=== PATIENT | male | born 1970 | race Caucasian/White ===

== ENCOUNTER 2023-10-07 09:20 | Outpatient (OUT) | payer BC, SELFPAY ==
[2023-10-07 09:48] LABS: Estimated Average Glucose 186 mg/dL; Glycohemoglobin A1C 8.1 % (4.5-6.2)
== END 2023-10-07 09:21 | disposition home or self-care (01) ==
PROVIDERS: PCP Internal Medicine; Visit Provider Internal Medicine
DX: E11.65 Type 2 diabetes mellitus with hyperglycemia (principal)
CPT/HCPCS: 36415; 83036

== ENCOUNTER 2024-10-06 09:29 | Outpatient (OUT) | payer BC, SELFPAY ==
--- OUTSIDE RECORDS SUMMARY | 2024-10-06 09:45 | XMS_ITS | CCD ---
Author Organization [facility] Care Team Providers Care Laundry Attendant Name Role Phone DR NAYAN GEE Consulting Unavailable BALL, DR ZARATE Attending Unavailable BALL, DR ZARATE Admitting Unavailable BALL, DR ZARATE Primary Care Unavailable BALL, DR ZARATE Attending Unavailable BALL, DR ZARATE Admitting Unavailable BALL, DR ZARATE Primary Care Unavailable BALL, DR ZARATE Attending Unavailable BALL, DR ZARATE Admitting Unavailable BALL, DR ZARATE Primary Care Unavailable BALL, DR ZARATE Primary Care Unavailable MISC, DR FARRAR Attending Unavailable MISC, DR FARRAR Admitting Unavailable MISC, DR FARRAR Consulting Unavailable BALL, DR ZARATE Primary Care Unavailable BALL, DR ZARATE Consulting Unavailable BALL, DR ZARATE Attending Unavailable BALL, DR ZARATE Admitting Unavailable NAYAN GEE Primary Care Physician [phone] Nayan Gee Unavailable TIMMIS, MILLIE H Attending Unavailable Nayan Gee DO Primary Care Provider Nayan Gee DO Primary Care Provider Nayan Gee DO Primary Care Provider AL V, SANJEET Referring Unavailabl e BALL, NAYAN E Primary Care Unavailable BALL, NAYAN E Primary Care Unavailable AL V, SANJEET Admitting Unavailabl e AL V, SANJEET Attending Unavailabl e BALL, NAYAN E Primary Care Unavailable BALL, NAYAN E Primary Care Unavailable LA V, SANJEET Referring Unavailabl e BALL, NAYAN E Primary Care Unavailable BALL, NAYAN E Primary Care Unavailable DO Mohan Pinzon Attending Unavailable Timmis, Millie H Admitting Unavailable Timmis, Millie H Attending Unavailable Timmis, Millie H Referring Unavailable ISAI PETERSON Attending Unavailable Zelalem Brink Attending Unavailable Timmis, Millie H Admitting Unavailable Timmis, Millie H Attending Unavailable Timmis, Millie H Referring Unavailable BALL, NAYAN Admitting Unavailable BALL, NAYAN Attending Unavailable BALL, NAYAN Attending Unavailable BALL, NAYAN Admitting Unavailable AL V, DOT Attending Unavailabl e BALL, NAYAN E Primary Care Unavailable AL V, DOT Attending Unavailabl e BALL, NAYAN E Primary Care Unavailable AL V, SANJEET Attending Unavailabl e BALL, NAYAN E Primary Care Unavailable BALL, NAYAN Admitting Unavailable BALL, NAYAN Attending Unavailable Cornel, Umer Attending Unavailable Allergies Allergy Classification Reported Allergen(s) Allergy Type Date of Onset Reaction(s) Facility (6 sources) venlafaxine Drug Allergy Unknown [facility] Other (9 sources) venlafaxine Drug Allergy Unknown [facility] Other (3 sources) patient allergy list reviewed by nurse or physicia Propensity to adverse reactions Comment:Done [facility] Other Medications Current Medications Medication Drug Class(es) Dates Sig (Normalized) Sig (Original) 0.25 MG, 0.5 MG Dose 3 ML semaglutide 0.68 MG/ML Pen Injector [Ozempic] (4 sources) Start: 11-14-2023 Ozempic 2 mg/3 mL (0.25 mg or 0.5 mg dose) subcutaneous solution Refills(s) 0 Start Date: 11/14/23 Status: Ordered acetaminophen 325 mg oral tablet (1 source) Start: 07-26-2023 take 1 tablet by mouth every four hours as needed acetaminophen (Tylenol) tablet 650 mg acetaminophen 325 mg / HYDROcodone bitartrate 5 mg oral tablet (1 source) Opioid Agonist Start: 06-15-2023 End: 06-18-2023 [place] 325 mg-5 mg oral tablet 1 tab(s), Oral, q6hr for pain for 3 day(s), 7 tab(s), Refill(s) 0, [facility] #[id number], 180.3, cm, 06/15/23 0:40:00 EST, Height/Length Dosing, 117.9, kg, 06/15/23 0:40:00 EST, Weight Dosing Start Date: 06/15/23 Stop Date: 06/18/23 Status: Ordered albuterol 0.83 mg/ml inhalation solution (1 source) beta2-Adrenergic Agonist Start: 07-26-2023 albuterol 2.5 mg /3 mL (0.083 %) nebulizer solution 2.5 mg amLODIPine 5 mg oral tablet (5 sources) Dihydropyridine Calcium Channel Pawel Start: 06-01-2024 take 1 tablet by mouth once daily Amlodipine 5 mg tablet Active 0 .ROUTE .COMPLEX June 01, 2024 9:57pm Take 1 tablet by mouth once daily Start: 11-20-2023 End: 06-01-2024 amLODIPine 5 mg Tab Refills( s) 0 Start Date: 12/26/23 Status: Ordered amoxicillin 500 mg oral capsule (1 source) Penicillin-class Antibacterial Start: 06-15-2023 End: 06-20-2023 take 1 capsule by mouth three times daily amoxicillin 500 mg Cap 500 mg = 1 cap(s), Oral, TID, X 5 day(s), # 15 cap(s), Refills(s) 0, Pharmacy: [facility] #[id number], 180.3, cm, 06/15/23 0:40:00 EST, Height/Length Dosing, 117.9, kg, 06/15/23 0:40:00 EST, Weight Dosing Start Date: 06/15/23 Stop Date: 06/20/23 Status: Ordered atorvastatin 20 mg oral tablet (20 sources) HMG-CoA Reductase Inhibitor Start: 12-11-2023 Atorvastatin 20 mg tablet Active 0 .ROUTE .COMPLEX December 11, 2023 8:36am TAKE 1 TABLET ONCE DAILY Start: 08-28-2018 End: 12-11-2023 take 1 tablet by mouth once daily atorvastatin 20 mg Tab 20 mg = 1 tab(s), Oral, Daily, Refills(s) 0, High cholesterol Start Date: 06/17/22 Status: Ordered atorvastatin (Li pitor) 20 mg tablet once every 24 hours. Active benzonatate 200 mg oral capsule (1 source) Non-narcotic Antitussive Start: 06-17-2022 End: 06-27-2022 take 1 capsule by mouth three times daily as needed for cough benzonatate 200 mg oral capsule 200 mg = 1 cap(s), Oral, TID, PRN Cough, X 10 day(s), # 30 cap(s), Refills(s) 0, Pharmacy: [facility], 178, cm, 06/17/22 11:35:00 EST, Height/Length Dosing, 113.3, kg, 06/17/22 11:35:00 EST, Weight Dosing Start Date: 06/17/22 Stop Date: 06/27/22 Status: Ordered buPROPion hydrochloride 75 mg oral tablet (20 sources) Aminoketone Start: 10-04-2023 take 2 tablets by mouth twice daily Bupropion Hcl 75 mg tablet Active 150 MG PO Twice daily October 04, 2023 12:00am Start: 05-23-2023 take 1 tablet by freddy th twice daily buPROPion XL (Wellbutrin XL) 150 mg 24 hr tablet Take 1 tablet (150 mg) by mouth twice a day. 05/23/2023 Active Start: 05-23-2023 take 1 tablet by freddy th every twenty-four hours buPROPion 150 mg/24 hours XL Tab 150 mg = 1 tab(s), Oral, q24hr, Refills(s) 0, Depression Start Date: 05/23/23 Status: Ordered Start: 06-17-2022 buPROPion 150 mg/24 hours XL Tab Refills(s) 0 Start Date: 06/17/22 Status: Ordered calcium chloride 0.0014 meq/ml / potassium chloride 0.004 meq/ml / sodium chloride 0.103 meq/ml / sodium lactate 0.028 meq/ml injectable solution (1 source) Start: 07-26-2023 lactated Ringer's infusion clindamycin 300 mg oral capsule (1 source) Lincosamide Antibacterial Start: 11-14-2023 End: 11-24-2023 take 1 capsule by mouth three times daily clindamycin 300 mg oral cap 300 mg = 1 cap(s), Oral, TID, X 10 day(s), # 30 cap(s), Refills(s) 0, Pharmacy: [facility], 180, cm, 11/14/23 16:57:00 EDT, Height/Length Dosing, 116, kg, 11/14/23 16:57:00 EDT, Weight Dosing Start Date: 11/14/23 Stop Date: 11/24/23 Status: Ordered diclofenac sodium 75 mg delayed release oral tablet (15 sources) Nonsteroidal Anti-inflammatory Drug Start: 08-28-2018 End: 07-26-2023 take 1 tablet by mouth twice daily Diclofenac Sodium 75 mg tablet,delayed release (DR/EC) Active 75 MG PO Twice daily August 28, 2018 1:00am escitalopram 10 mg oral tablet (7 sources) Serotonin Reuptake Inhibitor Start: 02-11-2016 take 10 mg by mouth once daily Lexapro 10 mg, Oral, Daily, Refills(s) 0, Anxiety Start Date: 02/11/16 Status: Ordered Start: 02-11-2016 Lexapro Oral, Daily, Refills(s) 0 Start Date: 02/11/16 Status: Ordered fluticasone propionate 0.05 mg/actuat metered dose nasal spray (8 sources) Corticosteroid Start: 02-18-2023 End: 02-18-2024 fluticasone (Flonase) 50 mcg/actuation nasal spray 2 sprays once daily. 02/18/2023 Active glimepiride 1 mg oral tablet (19 sources) Sulfonylurea Start: 09-17-2024 take 1 tablet by mouth once daily at breakfast Glimepiride 1 mg tablet Active 0 .ROUTE .COMPLEX 90 September 17, 2024 10:47pm TAKE 1 TABLET BY MOUTH ONCE DAILY WITH BREAKFAST OR THE FIRST MAIN MEAL OF THE DAY Start: 02-08-2023 End: 09-17-2024 take 1 tablet by mouth once daily at breakfast Glimepiride 1 mg tablet Discontinued 1 MG PO Daily October 04, 2023 12:00am September 17, 2024 10:47pm with breakfast or the first main meal of the day Handicap placards as directe d (20 sources) Start: 10-07-2018 Handicap placa rds as directed as directed as directed 3 months Sep, Active Start: 10-06-2018 Handicap placa rds as directed as directed as directed as directed good for 3 months Sep, Active Start: 07-08-2018 Handicap placa rds as directed 3 months 3 months Jun, Active 1 ml hydrALAZINE hydrochloride 20 mg/ml injection (1 source) Arteriolar Vasodilator Start: 07-26-2023 hydrALAZINE (Apresoline) injection 5 mg hydroCHLOROthiazide 25 mg oral tablet (20 sources) Thiazide Diuretic Start: 08-30-2024 take 1 tablet by mouth once daily Hydrochlorothiazide 25 mg tablet Active 0 .ROUTE .COMPLEX 90 August 30, 2024 6:37pm Take 1 tablet by mouth once daily Start: 08-28-2018 End: 08-30-2024 take 1 tablet by mouth once daily Hydrochlorothiazide 25 mg tablet Discontinued 25 MG PO Daily August 28, 2018 1:00am August 30, 2024 6:37pm Start: 02-11-2016 take 12.5 mg by mout h once daily hydrochlorothiazide 12.5 mg, Oral, Daily, Refills(s) 0, High blood pressure Start Date: 02/11/16 Status: Ordered Start: 02-11-2016 hydrochlorothi azide Oral, Daily, Refills(s) 0 Start Date: 02/11/16 Status: Ordered hydroCHLOROthiaz chicho (HYDRODiuril) 25 mg tablet once every 24 hours. Active 1 ml HYDROmorphone hydrochloride 1 mg/ml cartridge (2 sources) Opioid Agonist Start: 07-26-2023 HYDROmorphone (Dilaudid) injection 0.5 mg Start: 07-26-2023 HYDROmorphone (Dilaudid) injection 0.2 mg 3 ml insulin glargine 100 unt/ml pen injector (1 source) Insulin Analog Start: 03-13-2024 Insulin Glargi ne (Lantus Solostar U-100 Insulin) 100 unit/mL (3 mL) insulin pen Active 35 UNIT SUBCUT Every evening March 13, 2024 12:00am 3 ml insulin lispro 100 unt/ml pen injector (14 sources) Insulin Analog insulin lispro ( HumaLOG) 100 unit/mL injection Inject under the skin. Active inject 5 [IU] by sub cutaneous injection at dinner HumaLOG KwikPen 100 UNIT/ML 5 units Subcutaneous before evening meal for 30 days Active insulin lispro (HumaLOG) 100 unit/mL injection (1 source) insulin lispro (HumaLOG) 100 unit/mL injection Inject under the skin. 0 Active labetalol hydrochloride 5 mg/ml injectable solution (1 source) beta-Adrenergic Pawel Start: 07-26-19 labetaloL (Normodyne,Trandate) injection 5 mg metFORMIN hydrochloride 1000 mg oral tablet (20 sources) Biguanide Start: 08-28-19 take 1 tablet by mouth twice daily metformin 1000 mg Tab 1,000 mg = 1 tab(s), Oral, BID, Refills(s) 0, Blood glucose Start Date: 06/17/22 Status: Ordered Misc Medication (3 sources) Start: 02-11-20 Misc Medication pill for inflammation Start Date: 02/11/16 Status: Ordered naproxen 500 mg oral tablet (10 sources) Nonsteroidal Anti-inflammatory Drug Start: 10-04-19 End: 11-29-19 naproxen (Naprosyn) 500 mg tablet Take 1 tablet (500 mg) by mouth. 10/03/2020 Active ofloxacin 3 mg/ml ophthalmic solution (12 sources) Quinolone Antimicrobial Start: 12-14-19 take 2 drop(s) into the eye(s) four times daily Ofloxacin 0.3 % 2 drops Ophthalmic to both eyes QID for 7 days November, Active Start: 12-13-2022 take 2 drop(s) into the eye(s) four times daily Ofloxacin 0.3 % 2 drops Ophthalmic to both eyes QID for 7 days November, Active Start: 12-13-2022 take 2 drop(s) into the eye(s) four times daily Ofloxacin 0.3 % 2 drops Ophthalmic to both eyes QID for 7 days November, Active Start: 12-13-2022 take 2 drop(s) into the eye(s) four times daily Ofloxacin 0.3 % 2 drops Ophthalmic to both eyes QID for 7 days November, Active 2 ml ondansetron 2 mg/ml injection (1 source) Serotonin-3 Receptor Antagonist Start: 07-26-2023 ondansetron (Zofran) injection 4 mg oxyCODONE hydrochloride 5 mg oral tablet (2 sources) Opioid Agonist Start: 07-26-2023 take 1 tablet by mouth every four hours as needed oxyCODONE (Roxicodone) immediate release tablet 10 mg Start: 07-26-2023 take 1 tablet by freddy th every four hours as needed oxyCODONE (Roxicodone) immediate release tablet 5 mg oxygen (O2) therapy (1 source) Start: 07-26-2023 oxygen (O2) therapy Ozempic 0.25 mg or 0.5 mg (2 mg/3 mL) pen injector (4 sources) Start: 10-09-2023 Ozempic 0.25 mg or 0.5 mg (2 mg/3 mL) pen injector Inject 0.25 mg under the skin 1 (one) time per week. 10/09/2023 Active Promethazine (1 source) Phenothiazine Start: 06-17-2022 End: 06-24-2022 take 5 mL by mouth every eight hours for cough Promethazine DM oral syrup 5 mL, Oral, q8hr for cough for 7 day(s), 120 mL, Refill(s) 0, [facility], 178, cm, 06/17/22 11:35:00 EST, Height/Length Dosing, 113.3, kg, 06/17/22 11:35:00 EST, Weight Dosing Start Date: 06/17/22 Stop Date: 06/24/22 Status: Ordered promethazine (Phenergan) 6.25 mg in sodium chloride 0.9% 50 mL IV (1 source) Start: 07-26-2023 promethazine (Phenergan) 6.25 mg in sodium chloride 0.9% 50 mL IV Semaglutide 2 mg/dose (8 mg/3 mL) pen injector (1 source) Start: 10-06-2024 inject 2 mg by subcutaneous injection every week Semaglutide 2 mg/dose (8 mg/3 mL) pen injector Active 1 MG SUBCUT every week 1.5 October 06, 2024 9:10am for 4 weeks 24 hr venlafaxine 75 mg extended release oral capsule (20 sources) Serotonin and Norepinephrine Reuptake Inhibitor Start: 05-23-2023 venlafaxine XR (Effexor-XR) 75 mg 24 hr capsule once every 24 hours. 05/23/2023 Active Start: 05-23-2023 take 1 capsule by mo ut once daily venlafaxine 75 mg Cap-ER 75 mg = 1 cap(s), Oral, Daily, Refills(s) 0, Anxiety Start Date: 05/23/23 Status: Ordered Start: 06-17-2022 venlafaxine 75 mg Cap-ER Refills(s) 0 Start Date: 06/17/22 Status: Ordered Start: 08-28-2018 take 1 capsule by mo ut once daily Venlafaxine 150 mg capsule,extended release 24hr Active 150 MG PO Daily August 28, 2018 1:00am Completed/Discontinued Medications Medication Drug Class(es) Dates Sig (Normalized) Sig (Original) acetaminophen 325 mg / oxyCODONE hydrochloride 5 mg oral tablet (12 sources) Opioid Agonist Start: 09-04-2018 take 1-2 tablets by mouth every four to six hours as needed for pain Percocet 5-325 MG 1-2 tablet Orally every 4-6 hrs as needed for severe pain for 7 days DO NOT FILL UNTIL 09/10/2018 Aug, Not-Taking/PRN azithromycin 500 mg oral tablet (12 sources) Macrolide Antimicrobial Azithromycin 500 MG as directed Orally Not-Taking/PRN CPAP Machine (12 sources) CPAP Machine Not-Taking/PRN CPAP Machine Not -Taking 0.5 ml dulaglutide 3 mg/ml auto-injector (14 sources) GLP-1 Receptor Agonist Start: 11-18-2020 End: 10-04-2023 Dulaglutide (Trulicity) 1.5 mg/0.5 mL pen injector Discontinued 1.5 MG SUBCUT As Directed November 18, 2020 12:00am October 04, 2023 12:26pm Start: 08-28-2018 End: 11-18-2020 Dulaglutide 0.75 mg/0.5 mL p en injector Discontinued 1 DOSE SUBCUT every week August 28, 2018 1:00am November 18, 2020 9:39am Trulicity 0.75 M G/0.5ML as directed Subcutaneous Not-Taking/PRN hydrOXYzine pamoate 25 mg oral capsule (19 sources) Antihistamine Start: 09-12-2018 End: 09-19-2018 take 1 capsule by mouth every four hours Hydroxyzine Pamoate (Vistaril) 25 mg capsule Discontinued 25 MG PO Q4H 42 7 September 12, 2018 1:00am September 18, 2018 1:00am September 19, 2018 1:03am Start: 09-04-2018 hydrOXYzine pa moate (Vistaril) 25 mg capsule Take by mouth every 8 hours. 09/04/2018 Active insulin detemir 100 unt/ml injectable solution (20 sources) Insulin Analog Start: 10-04-2023 End: 03-13-2024 inject 35 [IU] by subcutaneous injection once daily at bedtime Insulin Detemir U-100 (Levemir U-100 Insulin) 100 unit/mL solution Discontinued 35 UNIT SUBCUT Daily at bedtime October 04, 2023 12:00am March 13, 2024 12:46pm Start: 06-17-2022 Levemir FlexTo uch 100 units/mL subcutaneous solution 35 unit(s), SubCutaneous, Once a day (at bedtime), Refills(s) 0, Blood glucose Start Date: 06/17/22 Status: Ordered Start: 06-17-2022 Levemir FlexTo uch 100 units/mL subcutaneous solution Refills(s) 0 Start Date: 06/17/22 Status: Ordered insulin detemir (Levemir) 100 unit/mL injection Inject 100 Units under the skin. Active inject 35 [IU] by shore bcutaneous injection once at bedtime Levemir 100 UNIT/ML 35 units Subcutaneous q hs for 30 days Active inject 35 [IU] by shore bcutaneous injection once at bedtime Levemir 100 UNIT/ML 35 units Subcutaneous q hs for 30 days Active inject 10 [IU] by shore bcutaneous injection once at bedtime Levemir 100 UNIT/ML 10 units Subcutaneous q hs for 30 days Active Levemir 100 UNIT /ML as directed Subcutaneous Active Insulin Lispro (Humalog Kwikpen Insulin) 100 unit/mL insulin pen (1 source) Start: 10-04-2023 End: 10-08-2023 inject 5 [IU] by subcutaneous injection once daily Insulin Lispro (Humalog Kwikpen Insulin) 100 unit/mL insulin pen Discontinued 5 UNIT SUBCUT Daily before supper October 04, 2023 12:00am October 08, 2023 3:18pm Semaglutide (2 sources) Start: 11-20-2023 End: 04-02-2024 Semaglutide (Ozempic) 0.25 mg or 0.5 mg (2 mg/3 mL) pen injector Discontinued 0.5 MG SUBCUT every week 3 November 20, 2023 6:15pm April 02, 2024 11:20am for 4 weeks Start: 10-08-2023 End: 11-20-2023 Semaglutide (Ozempic) 0.25 m g or 0.5 mg (2 mg/3 mL) pen injector Discontinued 0.25 MG SUBCUT every week 3 October 08, 2023 12:00am May 1st, 2024 6:16pm for 4 weeks Semaglutide (2 sources) Start: 07-23-2024 End: 10-06-2024 inject 1 mg by subcutaneous injection every week Semaglutide 1 mg/dose (4 mg/3 mL) pen injector Discontinued 1 MG SUBCUT every week 3 July 23, 2024 2:15pm October 06, 2024 9:11am for 4 weeks Start: 04-02-2024 End: 07-23-2024 inject 1 mg by subcutaneous injection every week Semaglutide 1 mg/dose (4 mg/3 mL) pen injector Discontinued 1 MG SUBCUT every week 3 April 02, 2024 11:19am July 23, 2024 2:15pm for 4 weeks TOUJEO SOLOSTAR U-300 (12 sources) TOUJEO SOLOSTAR U-300 As directed Injectable As Directred Not-Taking/PRN TOUJEO SOLOSTAR U-300 As directed Injectable As Directred Not-Taking traMADol hydrochloride 50 mg oral tablet (14 sources) Opioid Agonist Start: 09-23-2018 End: 07-31-2023 take 1 tablet by mouth every four to six hours as needed traMADol HCl 50 MG take 1 tablet Orally 4-6 hours as needed for 7 days Sep, Not-Taking/PRN Problems Active Problems Problem Classification Problem Date Documented Date Episodic/Chronic Anxiety disorders (15 sources) Generalized anxiety disorder; Translations: [Generalized anxiety disorder] Chronic Deficiency and other anemia (3 sources) Anemia; Translations: [Anemia, unspecified] Episodic Diabetes mellitus with complications (20 sources) Type 2 diabetes mellitus with hyperglycemia; Translations: [Type 2 diabetes mellitus] Onset: 12-12-2021 Chronic Diabetes mellitus without complication (20 sources) Diabetes mellitus; Translations: [Type 2 diabetes mellitus without complication] Onset: 07-26-2023 10-03-2020 Chronic Disorders of lipid metabolism (20 sources) Hyperlipidemia; Translations: [Pure hypercholesterolemia] Onset: 02-20-2017 10-03-2020 Chronic Disorders of teeth and jaw (6 sources) Disorder of teeth AND/OR supporting structures; Translations: [Other specified disorders of teeth and supporting structures] Onset: 06-15-2023 Episodic Esophageal disorders (13 sources) Gastro-esophageal reflux disease with esophagitis; Translations: [Gastroesophageal reflux disease with esophagitis without hemorrhage] 10-04-2023 Chronic Essential hypertension (20 sources) Hypertensive disorder; Translations: [Essential hypertension] Onset: 07-26-2023 10-03-2020 Chronic Mood disorders (20 sources) Major depressive disorder, recurrent, unspecified; Translations: [Recurrent major depression in full remission] Onset: 08-21-2021 Chronic Nutritional deficiencies (3 sources) Vitamin D deficiency; Translations: [Vitamin D deficiency, unspecified] Chronic Open wounds of extremities (1 source) Laceration of finger without foreign body; Translations: [Laceration without foreign body of unspecified finger without damage to nail, initial encounter] Onset: 09-22-2024 Episodic Osteoarthritis (20 sources) Arthritis of right knee; Translations: [Unilateral primary osteoarthritis, right knee] Chronic Other aftercare (12 sources) Long-term current use of insulin; Translations: [manager intermediate (current) use of insulin] Episodic Other aftercare (2 sources) [facility] (current) use of insulin Episodic Other and unspecified benign neoplasm (1 source) Benign neoplasm of nose, middle ear and accessory sinuses; Translations: [Benign neoplasm of middle ear, nasal cavity and accessory sinuses] Onset: 05-30-2023 Episodic Other and unspecified benign neoplasm (17 sources) Neoplastic disease; Translations: [Benign neoplasm, unspecified site] Onset: 06-26-2023 06-25-2023 Episodic Other circulatory disease (4 sources) Elevated blood pressure 11-14-2023 Episodic Other nervous system disorders (1 source) Acute postoperative pain; Translations: [Other acute postprocedural pain] 07-26-2023 Episodic Other nutritional; endocrine; and metabolic disorders (2 sources) Obese class II; Translations: [Body mass index (BMI) 35.0-35.9, adult] Onset: 06-17-2022 Chronic Other nutritional; endocrine; and metabolic disorders (4 sources) Obesity; Translations: [Obesity, unspecified] 10-06-2024 Chronic Other nutritional; endocrine; and metabolic disorders (3 sources) Morbid obesity; Translations: [Morbid (severe) obesity due to excess calories] Onset: 08-15-2015 Chronic Other nutritional; endocrine; and metabolic disorders (4 sources) Body mass index 30+ - obesity 11-14-2023 Chronic Other nutritional; endocrine; and metabolic disorders (1 source) Obesity, unspecified; Translations: [Obesity, unspecified] 10-06-2024 Chronic Other screening for suspected conditions (not mental disorders or infectious disease) (7 sources) Encounter for screening for malignant neoplasm of prostate; Translations: [No current problems or disability] Onset: 12-14-2021 06-17-2022 Episodic Comment on above: PSA:0.9 - 03/2024 Problem List clean-u p per request of Phys. EHR Cmte Other upper respiratory disease (12 sources) Hypertrophy of nasal turbinates; Translations: [Hypertrophy of nasal turbinates] Episodic Other upper respiratory disease (1 source) Hypertrophy of nasal turbinates Episodic Other upper respiratory disease (5 sources) Nasal obstruction; Translations: [Other specified disorders of nose and nasal sinuses] 06-25-2023 Episodic Other upper respiratory infections (5 sources) Common cold; Translations: [Acute nasopharyngitis [common cold]] Onset: 06-17-2022 Episodic Residual codes; unclassified (7 sources) Obstructive sleep apnea (adult) (pediatric); Translations: [Obstructive sleep apnea (adult)(pediatric)] Onset: 08-22-2021 Chronic Residual codes; unclassified (20 sources) Obstructive sleep apnea syndrome; Translations: [Obstructive sleep apnea (adult) (pediatric)] Onset: 07-26-2023 05-23-2023 Chronic Past or Other Problems Problem Classification Problem Date Documented Date Episodic/Chronic Esophageal disorders (2 sources) Esophageal disorders Other aftercare (1 source) Other correction (current) drug therapy; Translations: [[facility] CURRENT DRUG [facility]ERAPY] Onset: 08-24-2021 Episodic Other and unspecified benign neoplasm (5 sources) Benign neoplasm, unspecified site; Translations: [Benign neoplasm, unspecified site] Onset: 06-26-2023 Episodic Other nervous system disorders (2 sources) Other acute postprocedural pain; Translations: [Other acute postprocedural pain] Onset: 07-26-2023 Episodic Unclassified (8 sources) Onset: 06-25-2023 Resolved: 09-15-2024 06-25-2023 Results Test Name Value Interpretation Reference Range Facility ED Note-Physicianon 09-26-19 ED Note-Physician ED Note-Physician Basic Information Time Seen: Eyad Randolph PA-C 09/22/2024 16:11 Chief Complaint pt reports ring and pinky finger lac, cut it used it a veggie slicers. L hand. tdap not UTD. History of Present Illness 54 y/o M presenting s/p hand injury. He was slicing vegetables with a mandolin and sliced the tips of his ring and pinky fingers on his left hand. The mandolin was not dirty. He has 2 small abrasions, one on his left pinky and one on his left ring finger. They were actively bleeding but he states since arrival it has stopped. He states his last tetanus was 12 years ago. No other aggravating or relieving factors. No other associated symptoms. No other prior treatments or complaints. Review of Systems No other aggravating or relieving factors no other associated symptoms no other prior treatments or complaints. Family: Reviewed and noncontributory Social: lives at home 10 point ROS is negative unless otherwise noted in HPI. Physical Exam Vitals & Measurements T: 36.3 ???C(Oral) HR: 109(Peripheral) RR: 20 BP: 174/99 SpO2: 97% HT: 180 cm WT: 116 kg BMI: 35.8 General: The patient appears well and in no apparent distress. Patient is resting comfortably. Skin: Warm, dry, no pallor noted. Head: Normocephalic, atraumatic Neck: No JVD Eye: PERRLA, EOMI ENT: Moist mucus membranes Cardiovascular: Rate regular rhythm with normal peripheral perfusion Respiratory: No respiratory distress, no accessory muscle use, no obvious audible wheezing Chest Wall: no deformity Musculoskeletal: normal ROM, no deformity, no swelling. small abrasions on left pinky finger and left ring finger. GI: Soft no obvious distention. No rebound or rigidity. No guarding. Neurological: A&O moves all extremities equal strength and symmetry Psychiatric: Cooperative and appropriate Medical Decision Making Patient seen and evaluated with physician physical therapy assistant instructor student. I had a [id number] interaction with the patient. I personally performed the physical exam and medical decision making. I have verified the documentation by the student is accurately representing the information obtained. Patient presents for evaluation of finger injuries. Just prior to arrival he was using a mandolin when he lacerated the distal aspect of his left fourth and fifth digits. On examination he has soft tissue avulsions. There is no exposed bone. There is no active bleeding. wounds were dressed and managed by nursing. His tetanus is updated. He is discharged home PCP follow-up. Patient was encouraged to return to the ED if symptoms worsen or change. Assessment/Plan Finger laceration (S61.219A: Laceration without foreign body of unspecified finger without damage to nail, initial encounter) Orders: tetanus/diphtheria/pertu ssis, acel (Tdap), 0.5 mL, Injection, Intramuscular-Immunizati on, Once, Stop date 09/22/24 16:33:00 EST, STAT, Start date 09/22/24 16:33:00 EST Wound Care Routine Medications Administered Given tetanus/diphtheria/pertu ssis, acel (Tdap) 5 units-2.5 units-18.5 mcg/0.5 mL intramuscular suspension, 0.5 mL, Intramuscular-Immunizati on diphtheria/pertussis, acel/tetanus adult, Intramuscular-Immunizati on Disposition Plan Patient Discharge Condition Disposition: Discharged home Condition: Improved and stable Counseled: Patient and/or family were counseled to workup, results, treatment plan and follow-up recommendations Discharge Prescription List Prescriptions No active prescription medications Follow-up With When Contact Information NAYAN GEE In 3 days 09/25/2024 EST [address] [id number] [facility] (1) Additional Instructions: Patient Education Wound Care, Adult Attestation I performed a substantive part of the MDM during the patient???s E/M visit. I personally made or approved the documented management plan and acknowledge its risk of complications. (Independent Interpretation) My (EKG/X-Ray/US/CT) interpretation as above. (Discussion) Management/test interpretation discussed with APC. This report was transcribed using voice recognition software. Every effort was made to ensure accuracy, however, inadvertently computerized refractory technician mistakes may be present. Appropriate healthcare PPE was used in evaluating this patient. Problem List/Past Medical History Ongoing BMI 35.0-35.9,adult Dental abscess Diabetes Elevated blood pressure reading with diagnosis of hypertension Hypertension Historical Diabetes mellitus High blood pressure Hyperlipidemia Procedure/Surgical History Septoplasty for cleft lip nasal deformity (07/22/2022), Knee replacement (10/07/2018), Appendectomy, Hernia, Pilonidal cyst, Tumor. Medications Inpatient No active inpatient medications Home amLODIPine 5 mg Tab atorvastatin 20 mg Tab, 20 mg= 1 tab(s), Oral, Daily buPROPion 150 mg/24 hours XL Tab, 150 mg= 1 tab(s), Oral, q24hr hydrochlorothiazide, 12.5 mg, Oral, Daily Levemir Fl (more content not included)... Normal [facility] Comment on above: Result Comment: Elec tronically Signed By: Eyad Randolph PA-C\.br\Date and Time Signed: 09/22/24 17:15 EST\.br\Electronically Co-Signed By: Umer Unger DO\.br\Date and Time Co-Signed: 09/25/24 07:19 EST ED Clinical Summaryon 2024 ED Clinical Summary ED Clinical Summary [place] [id number] ED Clinical Summary Person Information Name: PARVEEN LEE Chrissie/[facility] Age: 54 Years : 1970 Sex: Male Language: Welsh PCP: NAYAN GEE DO Marital Status: Phone: [phone] Visit Id: Visit Reason: Finger laceration; LEFT FINGER LAC Speciality: Acuity: 4 Enc Type: Emergency Med Service: Emergency Arrival: 09/22/2024 16:04:19 Discharge: 09/22/2024 17:20:49 LOS: 000 01:16 Checkin: 09/22/2024 16:04:19 Checkout: 09/22/2024 17:20:49 Dispo Type: Home (Routine DC) EVENTS: Event Name Event Status Request Date/Time Start Date/Time Complete Date/Time Arrive Complete 09/22/2024 16:04:19 09/22/2024 16:04:19 09/22/2024 16:04:19 Document Home Meds Request 09/22/2024 16:04:19 Triage Complete 09/22/2024 16:04:19 09/22/2024 16:10:51 09/22/2024 16:10:51 Bed Assign Complete 09/22/2024 16:08:30 09/22/2024 16:08:30 09/22/2024 16:08:30 Dr Exam Complete 09/22/2024 16:08:30 09/22/2024 16:11:47 09/22/2024 16:11:47 RN Exam Complete 09/22/2024 16:08:30 09/22/2024 16:16:26 09/22/2024 16:16:26 Patient Care Request 09/22/2024 16:10:04 Registration Complete 09/22/2024 16:11:47 09/22/2024 16:31:30 09/22/2024 16:31:30 Dr Exam Complete 09/22/2024 16:18:14 09/22/2024 16:18:14 09/22/2024 16:18:14 Dr Exam Complete 09/22/2024 16:29:03 09/22/2024 16:29:03 09/22/2024 16:29:03 Reg Complete Request 09/22/2024 16:31:30 Reg Bed Request Complete 09/22/2024 16:31:30 09/22/2024 16:31:30 09/22/2024 16:31:30 Meds Admin Complete 09/22/2024 16:33:58 09/22/2024 16:44:47 Patient Care Request 09/22/2024 16:33:58 Discharge Complete 09/22/2024 16:59:31 09/22/2024 17:20:52 09/22/2024 17:20:52 Transfer Complete 09/22/2024 17:20:52 09/22/2024 17:20:52 09/22/2024 17:20:52 ADDRESS: [address] [place] [address] [address] [facility] [id number] PHYS DOC NOTES: MEDICAL INFORMATION: Prescriptions Given: Medications to Continue with No Changes Other Medications amlodipine (amLODIPine 5 mg Tab) atorvastatin (atorvastatin 20 mg Tab) 1 Tablets By Mouth every day. buPROPion (buPROPion 150 mg/24 hours XL Tab) 1 Tablets By Mouth every 24 hours. hydrochlorothiazide 12.5 Milligram By Mouth every day. insulin detemir (Levemir FlexTouch 100 units/mL subcutaneous solution) 35 Units Subcutaneous once a day (at bedtime). metformin (metformin 1000 mg Tab) 1 Tablets By Mouth 2 times a day. semaglutide (Ozempic 2 mg/3 mL (0.25 mg or 0.5 mg dose) subcutaneous solution) venlafaxine (venlafaxine 75 mg Cap-ER) 1 Capsules By Mouth every day. PATIENT EDUCATION INFORMATION: Instructions: Wound Care, Adult Follow up: With: Address: When: NAYAN GEE [address] [place] [address] Business (1) In 3 days 09/25/2024 DIAGNOSIS: Finger laceration Normal [facility] ED Patient Summaryon 025 ED Patient Summary ED Patient Summary [address] [address] Patient Discharge Instructions Person Information Name: PARVEEN LEE Age: 54 Years Arrival Date: 09/22/2024 16:04:19 Discharge Diagnosis: Finger laceration Primary Care Physician: NAYAN GEE DO Provider Information Primary Provider: Umer Unger DO Advanced Multiple Knife Edge Trimmer Operator:Eyad Randolph PA-C The exam and treatment you received in the Emergency Department were for an urgent problem and are not intended as complete care. It is important that you follow up with a doctor, nurse practitioner, or physician???s physical therapy assistant instructor for ongoing care. If your symptoms become worse or you do not improve as expected and you are unable to reach your usual health care provider, you should return to the Emergency Department. We are available 24 hours a day. PARVEEN LEE has been given the following list of patient education materials, prescriptions and follow-up instructions: Follow-up Instructions: With: Address: When: NAYAN GEE [address] [place] [address] [facility] (1) In 3 days 09/25/2024 In the event that this physician does not participate in your insurance network, please consult with your insurance company to find a nearby participating provider. Patient Education Materials: Wound Care, Adult A MESSAGE TO ALL PATIENTS REGARDING OPIOIDS PRESCRIPTION OPIOIDS: WHAT YOU NEED TO KNOW Prescription opioids can be used to help relieve nyjhsfgb-ut-bofatu pain and are often prescribed following a surgery or injury, or for certain health conditions. These medications can be an important part of the treatment but also come with serious risks. It is important to work with your healthcare provider to make sure you are getting the safest, most effective care. WHAT ARE THE RISKS AND SIDE EFFECTS OF OPIOID USE? Prescription opioids carry serious risks of addiction and overdose, especially with prolonged use. An opioid overdose, often marked by slowed breathing, can cause sudden . The use of prescription opioids can have a number of side effects as well, even when taken as directed: ??? Tolerance???meaning you might need to take more of the medication for the same pain relief ??? Physical dependence???meaning you have symptoms of withdrawal when a medication is stopped ??? Increased sensitivity to pain ??? Constipation ??? Nausea, vomiting, and dry mouth ??? Sleepiness and dizziness ??? Confusion ??? Depression ??? Low levels of testosterone that can result in lower sex drive, energy, and strength ??? Itching and sweating RISKS ARE GREATER WITH: ??? History of drug misuse, substance use disorder, or overdose ??? Mental health conditions (such as depression or anxiety) ??? Sleep apnea ??? Older age (65 years and older) ??? Avoid alcohol while taking prescription opioids. Also, unless specifically advised by your health care provider, medications to avoid include: ??? Benzodiazepines (such as Xanax or Valium) ??? Muscle relaxants (such as Soma or Flexeril) ??? Hypnotics (such as Ambien or Lunesta) ??? Other prescription opioids KNOW YOUR OPTIONS Talk to your health care provider about ways to manage your pain that don???t involve prescription opioids. Some of these options may actually work better and have fewer risks and side effects. Options may include: ??? Pain relievers such as acetaminophen, ibuprofen, and naproxen ??? Some medication that are also used for depression or seizures ??? Physical therapy and exercise ??? Cognitive behavioral therapy, a psychological, goal-directed approach, in which patients learn how to modify physical, behavioral, and emotional triggers of pain and stress. IF YOU ARE PRESCRIBED OPIOIDS FOR PAIN: ??? Never take opioids in greater amounts or more often than prescribed. ??? Follow up with your primary health care provider. o Work together to create a plan on how to manage your pain. o Talk about ways to help manage your pain that don???t involve prescription opioids. o Talk about any and all concerns and side effects. ??? Help prevent misuse and abuse o Never sell or share prescription opioids. o Never use another person???s prescription opioids. ??? Store prescription opioids in a secure place and out of reach of others (this may include visitors, children, friends, and family). ??? Safely dispose of unused prescription opioids: Find your community drug take-back program or your pharmacy mail-back program, or flush them down the toilet, following guidance from the Food and Drug Administration (www.fda.gov/Drugs/Resou rcesForYou). ??? Visit www.cdc.gov/drugoverdose to learn about the risks of opioids abuse and overdose. ??? If you believe you may be struggling with addiction, tell your health childbirth and infant care teacher and as (more content not included)... Normal [facility] CBC w/ Auto Diffon 4 Basophils/100 WBC (Bld) 0.7 % Normal 0.0-2.0 [facility] Comment on above: Performed By: #### 2 [id number] #### [facility] [address] [place] [address] Basophils/Leukocytes Auto (Bld) [Pure # fraction] 0.0 E9/L Normal 0.0-0.2 [facility] Comment on above: Performed By: #### 2 [id number] #### [facility] [address] [place] [address] Eosinophils (Bld) [#/Vol] 0.2 E9/L Normal 0.0-0.5 [facility] Comment on above: Performed By: #### 2 [id number] #### [facility] [address] [place] [address] Eosinophils/100 WBC (Bld) 2.7 % Normal 0.0-8.0 [facility] Comment on above: Performed By: #### 2 [id number] #### [facility] [address] [place] [address] Erythrocyte distribution width (RBC) [Ratio] 14.3 % High 10.9-14.2 [facility] Comment on above: Performed By: #### 2 [id number] #### [facility] [address] [place] [address] Hematocrit (Bld) [Volume fraction] 37.6 % Low 37.7-49.0 [facility] Comment on above: Performed By: #### 2 [id number] #### [facility] [address] [place] [address] Hemoglobin (Bld) [Mass/Vol] 13.0 g/dL Low 13.5-17.5 [facility] Comment on above: Performed By: #### 2 [id number] #### [facility] [address] [place] [address] Lymphocytes (Bld) [#/Vol] 1.5 E9/L Normal 1.0-4.0 [facility] Comment on above: Performed By: #### 2 [id number] #### [facility] [address] [place] [address] Lymphocytes/100 WBC (Bld) 20.9 % Normal 14.0-50.0 [facility] Comment on above: Performed By: #### 2 [id number] #### [facility] [address] [place] [address] MCH (RBC) [Entitic mass] 29.5 pg Normal 27.0-34.0 [facility] Comment on above: Performed By: #### 2 [id number] #### [facility] [address] [place] [address] MCHC (RBC) [Mass/Vol] 34.7 g/dL Normal 31.4-36.0 [facility] Comment on above: Performed By: #### 2 [id number] #### [facility] [address] [place] [address] MCV (RBC) [Entitic vol] 85.1 fL Normal 80.0-100.0 [facility] Comment on above: Performed By: #### 2 [id number] #### [facility] [address] [place] [address] Monocytes (Bld) [#/Vol] 0.4 E9/L Normal 0.2-1.0 [facility] Comment on above: Performed By: #### 2 [id number] #### [facility] [address] [place] [address] Neutrophils (Bld) [#/Vol] 4.9 E9/L Normal 2.0-7.5 [facility] Comment on above: Performed By: #### 2 [id number] #### [facility] [address] [place] [address] Neutrophils/100 WBC (Bld) 69.5 % Normal 36.0-75.0 [facility] Comment on above: Performed By: #### 2 [id number] #### [facility] [address] [place] [address] Platelet mean volume (Bld) [Entitic vol] 9.0 fL Normal 6.4-10.8 [facility] Comment on above: Performed By: #### 2 [id number] #### [facility] [address] [place] [address] Platelets (Bld) [#/Vol] 190.0 E9/L Normal 150.0-500.0 [facility] Comment on above: Performed By: #### 2 [id number] #### [facility] [address] [place] [address] RBC (Bld) [#/Vol] 4.4 E12/L Normal 4.3-5.9 [facility] Comment on above: Performed By: #### 2 [id number] #### [facility] [address] [place] [address] WBC corrected for nucl RBC Auto (Bld) [#/Vol] 7.0 E9/L Normal 4.0-11.0 [facility] Comment on above: Performed By: #### 2 [id number] #### [facility] [address] [place] [address] CHEMISTRYOrdered By: SYSTEM SYSTEM on 04-07-2024 Albumin DL <= 20 mg/L (U) [Mass/Vol] 3.2 mg/dL High 0.0 - 1.9 mg/dL [facility] Albumin/Creatinine DL <= 20 mg/L (U) [Mass ratio] 19.9 mg/gm Cr Normal 0.0 - 30.0 mg/gm Cr [facility] Comment on above: Interpretive Data: 3 0-300 mg/g Cr indicates an increased risk for diabetic nephropathy. >300 mg/g Cr is consistent with clinical nephropathy. U Creatinine 160.6 mg/dL Invalid Interpretation Code [facility] Albumin [Mass/Vol] 4.3 g/dL Normal 3.3 - 5.0 gm/dL [facility] Albumin/Globulin [Mass ratio] 1.3 {ratio} Normal 1.1 - 2.2 [facility] ALP [Catalytic activity/Vol] 53 [iU]/d Normal 21 - 98 Int._Unit/L [facility] ALT No additional P-5'-P [Catalytic activity/Vol] 42 [iU]/d Normal 6 - 46 Int._Unit/L [facility] Anion gap [Moles/Vol] 11 mmol/L Normal 6 - 16 mEq/L [facility] AST [Catalytic activity/Vol] 28 [iU]/d Normal 5 - 43 Int._Unit/L [facility] Bilirubin [Mass/Vol] 0.5 mg/dL Normal 0.0 - 1 .1 mg/dL [facility] Calcium [Mass/Vol] 9.4 mg/dL Normal 8.9 - 11. 1 mg/dL [facility] Chloride [Moles/Vol] 103 mmol/L Normal 101 - 1 11 mmol/L [facility] Cholesterol [Mass/Vol] 134 mg/dL Normal 120 - 200 mg/dL [facility] Cholesterol in HDL [Mass/Vol] 39 mg/dL Invalid Interpretation Code [facility] Comment on above: Result Comment: '>= 60 LOW RISK' '<= 40 HIGH RISK' Cholesterol in LDL [Mass/Vol] 81 mg/dL Normal <=129mg/dL [facility] Cholesterol in VLDL [Mass/Vol] 29 mg/dL Normal 7 - 40 mg/dL [facility] CO2 [Moles/Vol] 29 mmol/L Normal 21 - 31 mmol/L [facility] Creatinine [Mass/Vol] 0.7 mg/dL Normal 0.5 - 1.3 mg/dL [facility] eGFR 110 mL/min/1.73 m2 Normal >=59mL/mi n/ 1.73 m2 [facility] Globulin (S) [Mass/Vol] 3.4 g/dL Normal 1.4 - 4.0 gm/dL [facility] Glucose [Mass/Vol] 155 mg/dL Normal 55 - 199 mg/dL [facility] Potassium [Moles/Vol] 3.8 mmol/L Normal 3.5 - 5.3 mmol/L [facility] Prostate specific Ag [Mass/Vol] 0.9 ng/mL Normal 0.1 - 3.5 ng/mL [facility] Comment on above: Interpretive Data: T he concentration of PSA determined by different manufacturers can vary due to differences in assay methods and reagent specificity. Values obtained from different assay methods cannot be used interchangeably. The methodology used for this result was chemiluminescence using [employer]'s Access Hybritech PSA reagent. Protein [Mass/Vol] 7.7 g/dL Normal 6.0 - 7.8 gm/dL [facility] Sodium [Moles/Vol] 139 mmol/L Normal 135 - 145 mmol/L [facility] Triglyceride [Mass/Vol] 144 mg/dL Normal <=149mg/dL [facility] Urea nitrogen [Mass/Vol] 12 mg/dL Normal 5 - 21 mg/dL [facility] Urea nitrogen/Creatinine [Mass ratio] 17 mg/mg Normal 10 - 20 [facility] CHEMISTRYOrdered By: Jose Elias Ballesteros on 04-07-2024 HbA1c (Bld) [Mass fraction] 8.4 % High <=5.9% [facility] ChemAutoSS CMPon 04-07-2024 Albumin [Mass/Vol] 4.3 g/dL Normal 3.3-5.0 [facility] Comment on above: Performed By: #### 2 [id number] #### [facility] [address] [place] [address] Albumin/Globulin (S) [Mass conc ratio] 1.3 Normal 1.1-2.2 [facility] Comment on above: Performed By: #### 2 [id number] #### [facility] [address] [place] [address] ALP [Catalytic activity/Vol] 53 Int._Unit/L Normal 21-98 [facility] Comment on above: Performed By: #### 2 [id number] #### [facility] [address] [place] [address] ALT No additional P-5'-P [Catalytic activity/Vol] 42 Int._Unit/L Normal 6-46 [facility] Comment on above: Performed By: #### 2 [id number] #### [facility] [address] [place] [address] Anion gap [Moles/Vol] 11 mmol/L Normal 6-16 [facility] Comment on above: Performed By: #### 2 [id number] #### [facility] [address] [place] [address] AST [Catalytic activity/Vol] 28 Int._Unit/L Normal 5-43 [facility] Comment on above: Performed By: #### 2 [id number] #### [facility] [address] [place] [address] Bilirubin [Mass/Vol] 0.5 mg/dL Normal 0.0-1.1 [facility] Comment on above: Performed By: #### 2 [id number] #### [facility] [address] [place] [address] Calcium [Mass/Vol] 9.4 mg/dL Normal 8.9-11.1 [facility] Comment on above: Performed By: #### 2 [id number] #### [facility] [address] [place] [address] Chloride [Moles/Vol] 103 mmol/L Normal 101-111 [facility] Comment on above: Performed By: #### 2 [id number] #### [facility] [address] [place] [address] CO2 [Moles/Vol] 29 mmol/L Normal 21-31 [facility] Comment on above: Performed By: #### 2 [id number] #### [facility] [address] [place] [address] Creatinine [Mass/Vol] 0.7 mg/dL Normal 0.5-1.3 [facility] Comment on above: Performed By: #### 2 [id number] #### [facility] [address] [place] [address] Globulin (S) [Mass/Vol] 3.4 g/dL Normal 1.4-4.0 [facility] Comment on above: Performed By: #### 2 [id number] #### [facility] [address] [place] [address] Glucose [Mass/Vol] 155 mg/dL Normal 55-199 [facility] Comment on above: Performed By: #### 2 [id number] #### [facility] [address] [place] [address] Potassium [Moles/Vol] 3.8 mmol/L Normal 3.5-5.3 [facility] Comment on above: Performed By: #### 2 [id number] #### [facility] [address] [place] [address] Protein [Mass/Vol] 7.7 g/dL Normal 6.0-7.8 [facility] Comment on above: Performed By: #### 2 [id number] #### [facility] [address] [place] [address] Sodium [Moles/Vol] 139 mmol/L Normal 135-145 [facility] Comment on above: Performed By: #### 2 [id number] #### [facility] [address] [place] [address] Urea nitrogen [Mass/Vol] 12 mg/dL Normal 5-21 [facility] Comment on above: Performed By: #### 2 [id number] #### [facility] [address] [place] [address] Urea nitrogen/Creatinine [Mass ratio] 17 No Units Normal 10-20 [facility] Comment on above: Performed By: #### 2 [id number] #### [facility] [address] [place] [address] HEMATOLOGYOrdered By: SYSTEM SYSTEM on 04-07-2024 Basophils/100 WBC (Bld) 0.7 % Normal 0.0 - 2.0 % [facility] Basophils/Leukocytes Auto (Bld) [Pure # fraction] 0.0 E9/L Normal 0.0 - 0.2 E9/L [facility] Eosinophils (Bld) [#/Vol] 0.2 E9/L Normal 0.0 - 0.5 E9/L [facility] Eosinophils/100 WBC (Bld) 2.7 % Normal 0.0 - 8.0 % [facility] Erythrocyte distribution width (RBC) [Ratio] 14.3 % High 10.9 - 14.2 % Remisol Heme Hematocrit (Bld) [Volume fraction] 37.6 % Low 37.7 - 49.0 % Remisol Heme Hemoglobin (Bld) [Mass/Vol] 13.0 g/dL Low 13.5 - 17.5 gm/dL Remisol Heme Lymphocytes (Bld) [#/Vol] 1.5 E9/L Normal 1.0 - 4.0 E9/L Remisol Heme Lymphocytes/100 WBC (Bld) 20.9 % Normal 14.0 - 50.0 % Remisol Heme MCH (RBC) [Entitic mass] 29.5 pg Normal 27.0 - 34.0 pg Remisol Heme MCHC (RBC) [Mass/Vol] 34.7 g/dL Normal 31.4 - 36.0 gm/dL Remisol Heme MCV (RBC) [Entitic vol] 85.1 fL Normal 80.0 - 100.0 fL Remisol Heme Monocytes (Bld) [#/Vol] 0.4 E9/L Normal 0.2 - 1.0 E9/L Remisol Heme Monocytes/100 WBC (Bld) 6.2 % Normal 4.0 - 14.0 % Remisol Heme Neutrophils (Bld) [#/Vol] 4.9 E9/L Normal 2.0 - 7.5 E9/L Remisol Heme Neutrophils/100 WBC (Bld) 69.5 % Normal 36.0 - 75.0 % Rem[facility] Heme Platelet mean volume (Bld) [Entitic vol] 9.0 fL Normal 6.4 - 10.8 fL Remisol Heme Platelets (Bld) [#/Vol] 190.0 E9/L Normal 150.0 - 500.0 E9/L Remisol Heme RBC (Bld) [#/Vol] 4.4 E12/L Normal 4.3 - 5.9 E12/L Remisol Heme WBC corrected for nucl RBC Auto (Bld) [#/Vol] 7.0 E9/L Normal 4.0 - 11.0 E9/L Remisol Heme [id number] 04-07-2024 HbA1c (Bld) [Mass fraction] 8.4 % High <=5.9 [facility] Comment on above: Performed By: #### [id number] #### [facility] [address] [place] [address] Lipid Panelon 04-07-2024 Cholesterol [Mass/Vol] 134 mg/dL Normal 120-200 [facility] Comment on above: Performed By: #### 2 [id number] #### [facility] [address] [place] [address] Cholesterol in HDL [Mass/Vol] 39 mg/dL Invalid Interpretation Code [facility] Comment on above: Result Comment: '>= 60 LOW RISK' '<= 40 HIGH RISK' Performed By: #### 2 [id number] #### [facility] [address] [place] [address] Cholesterol in LDL [Mass/Vol] 81 mg/dL Normal <=129 [facility] Comment on above: Performed By: #### 2 [id number] #### [facility] [address] [place] [address] Cholesterol in VLDL [Mass/Vol] 29 mg/dL Normal 7-40 [facility] Comment on above: Performed By: #### 2 [id number] #### [facility] [address] [place] [address] Triglyceride [Mass/Vol] 144 mg/dL Normal <=149 [facility] Comment on above: Performed By: #### 2 [id number] #### [facility] [address] [place] [address] PSA Screen, Totalon 04-07-20 24 Prostate specific Ag [Mass/Vol] 0.9 ng/mL Normal 0.1-3.5 [facility] Comment on above: Result Comment: The concentration of PSA determined by different manufacturers can vary due to differences in assay methods and reagent specificity. Values obtained from different assay methods cannot be used interchangeably. The methodology used for this result was chemiluminescence using [employer]'s Access Hybritech PSA reagent. Performed By: #### 1 [id number] #### [facility] [address] [place] [address] U MA/Cr Ratioon 04-07-2024 Albumin DL <= 20 mg/L (U) [Mass/Vol] 3.2 mg/dL High 0.0-1.9 [facility] Comment on above: Performed By: #### 1 [id number] #### [facility] [address] [place] [address] Albumin/Creatinine DL <= 20 mg/L (U) [Mass ratio] 19.9 mg/gm Cr Normal .0-30.0 [facility] Comment on above: Result Comment: 30-3 00 mg/g Cr indicates an increased risk for diabetic nephropathy. >300 mg/g Cr is consistent with clinical nephropathy. Performed By: #### 1 [id number] #### [facility] [address] [place] [address] U Creatinine 160.6 mg/dL Invalid Interpretation Code [facility] Comment on above: Performed By: #### 1 [id number] #### [facility] [address] [place] [address] eGFRon 04-07-2024 eGFR 110 mL/min/1.73 m2 Normal >=59 [facility] Comment on above: Order Comment: Order added by Discern Expert. Performed By: #### 1 [id number] #### [facility] [address] [place] [address] CT SINUS WO IV CONTRAST VOLU METRIC SURGICAL PLANNINGon 02-06-2024 CT SINUS WO IV CONTRAST VOLUMETRIC SURGICAL PLANNING Interpreted By: Kirill Matthews, STUDY: CT paranasal sinuses INDICATION: Signs/Symptoms:inverted papilloma s/p surgery COMPARISON: July 10, 2023 ACCESSION NUMBER(S): [id number] ORDERING CLINICIAN: DOT MELENDEZ TECHNIQUE: CT of the paranasal sinuses was performed with multiplanar reconstruction and 3D reconstruction FINDINGS: *Nasal fossa deviation of the nasal septum to the left with a 5 mm bony spur extending into the left middle meatus resulting in airway narrowing at that location. Previous right middle turbinectomy and right medial antrostomy. *Frontal sinuses: Normal *Ethmoid sinuses: Partial right anterior ethmoidectomy *Maxillary sinuses: Minimal non nodular soft tissue thickening in the remaining portion of the right maxillary sinus without evidence of residual or recurrent tumor. *Sphenoid sinuses: Normal *Mastoid sinuses: Normal *Maxilla and mandible: Normal ORBITS Normal IMPRESSION: Postoperative changes as described No evidence of residual intranasal mass Unchanged bone spur to the left with airway narrowing. MACRO: none Signed by: Kirill Matthews 02/06/2024 9:30 AM Dictation workstation: [id number] [facility] CT Sinuses WO contraston Postoperative change s as described No evidence of residual intranasal mass Unchanged bone spur to the left with airway narrowing. MACRO: none Signed by: Kirill Matthews 02/06/2024 9:30 AM Dictation workstation: [id number] Interpreted By: Kirill Matthews, STUDY: CT paranasal sinuses INDICATION: Signs/Symptoms:inverted papilloma s/p surgery COMPARISON: July 10, 2023 ACCESSION NUMBER(S): [id number] ORDERING CLINICIAN: DOT MELENDEZ TECHNIQUE: CT of the paranasal sinuses was performed with multiplanar reconstruction and 3D reconstruction FINDINGS: *Nasal fossa deviation of the nasal septum to the left with a 5 mm bony spur extending into the left middle meatus resulting in airway narrowing at that location. Previous right middle turbinectomy and right medial antrostomy. *Frontal sinuses: Normal *Ethmoid sinuses: Partial right anterior ethmoidectomy *Maxillary sinuses: Minimal non nodular soft tissue thickening in the remaining portion of the right maxillary sinus without evidence of residual or recurrent tumor. *Sphenoid sinuses: Normal *Mastoid sinuses: Normal *Maxilla and mandible: Normal ORBITS Normal [facility] MMODAL Kirill Matthews MD - 02/06/2024 Interpreted By: Kirill Matthews, STUDY: CT paranasal sinuses INDICATION: Signs/Symptoms:inverted papilloma s/p surgery COMPARISON: July 10, 2023 ACCESSION NUMBER(S): [id number] ORDERING CLINICIAN: DOT MELENDEZ TECHNIQUE: CT of the paranasal sinuses was performed with multiplanar reconstruction and 3D reconstruction FINDINGS: *Nasal fossa deviation of the nasal septum to the left with a 5 mm bony spur extending into the left middle meatus resulting in airway narrowing at that location. Previous right middle turbinectomy and right medial antrostomy. *Frontal sinuses: Normal *Ethmoid sinuses: Partial right anterior ethmoidectomy *Maxillary sinuses: Minimal non nodular soft tissue thickening in the remaining portion of the right maxillary sinus without evidence of residual or recurrent tumor. *Sphenoid sinuses: Normal *Mastoid sinuses: Normal *Maxilla and mandible: Normal ORBITS Normal IMPRESSION: Postoperative changes as described No evidence of residual intranasal mass Unchanged bone spur to the left with airway narrowing. MACRO: none Signed by: Kirill Matthews 02/06/2024 9:30 AM Dictation workstation: [id number] [facility] Work Phone: Radiology Study observation (narrative) [facility] Work Phone: CT Sinuses WO contrastOrdere d By: Kirill Matthews on 02-06-2024 [facility] Work Phone: Ambulatory Visit Summaryon 0 12-26-2023 Ambulatory Visit Summary PARVEEN LEE :1970 Visit Date:12/26/2023 Ambulatory Visit Instructions Your Diagnosis Viral URI with cough Your Care Team Attending Physician - Zelalem Morales Primary Care Physician - NAYAN GEE DO This Is Your Medications List Contact prescribing physician if questions or concerns amlodipine (amLODIPine 5 mg Tab) atorvastatin (atorvastatin 20 mg Tab) buPROPion (buPROPion 150 mg/24 hours XL Tab) hydrochlorothiazide insulin detemir (Levemir FlexTouch 100 units/mL subcutaneous solution) metformin (metformin 1000 mg Tab) semaglutide (Ozempic 2 mg/3 mL (0.25 mg or 0.5 mg dose) subcutaneous solution) venlafaxine (venlafaxine 75 mg Cap-ER) Procedures Performed Septoplasty for cleft lip nasal deformity (07/22/2022), Knee replacement (10/07/2018), Appendectomy, Hernia, Pilonidal cyst, Tumor. Discharge Vitals Temperature (Temporal Artery) 36.2 ?C Heart Rate (Peripheral) 79 Blood Pressure 136/84 Height 180 cm Height 71 in Weight 116 kg Weight 255.2 lb BMI 35.8 Medications What How Much When Instructions Unchanged amlodipine (amLODIPine 5 mg Tab) Contact prescribing physician if questions or concerns Unchanged atorvastatin (atorvastatin 20 mg Tab) 1 Tablets By Mouth Every day Contact prescribing physician if questions or concerns Unchanged buPROPion (buPROPion 150 mg/ 24 hours XL Tab) 1 Tablets By Mouth Every 24 hours Contact prescribing physician if questions or concerns Unchanged hydrochlorothiazide 12.5 Milligram By Mouth Every day Contact prescribing physician if questions or concerns Unchanged insulin detemir (Levemir FlexTouch 100 units/ mL subcutaneous solution) 35 Units Subcutaneous Once a day (at bedtime) Contact prescribing physician if questions or concerns Unchanged metformin (metformin 1000 mg Tab) 1 Tablets By Mouth 2 times a day Contact prescribing physician if questions or concerns Unchanged semaglutide (Ozempic 2 mg/ 3 mL (0.25 mg or 0.5 mg dose) subcutaneous solution) Contact prescribing physician if questions or concerns Unchanged venlafaxine (venlafaxine 75 mg Cap-ER) 1 Capsules By Mouth Every day Contact prescribing physician if questions or concerns Allergies No Known Allergies Problems Ongoing - Any problem that you are currently receiving treatment for. BMI 35.0-35.9,adult Dental abscess Diabetes Elevated blood pressure reading with diagnosis of hypertension Hypertension Historical - Any problem that you are no longer receiving treatment for. Diabetes mellitus High blood pressure Hyperlipidemia Patient Survey You may receive a survey via text or e-mail asking about your office visit. Please share your experience with us by completing your survey. We appreciate your feedback and thank you for choosing us for your care. Education Materials Upper Respiratory Infection, Adult An upper respiratory infection (URI) affects the nose, throat, and upper airways that lead to the lungs. The most common type of URI is often called the common cold. URIs usually get better on their own, without medical treatment. What are the causes? A URI is caused by a germ (virus). You may catch these germs by: ? Breathing in droplets from an infected person's cough or sneeze. ? Touching something that has the germ on it (is contaminated) and then touching your mouth, nose, or eyes. What increases the risk? You are more likely to get a URI if: ? You are very young or very old. ? You have close contact with others, such as at work, school, or a health care facility. ? You smoke. ? You have long-term (chronic) heart or lung disease. ? You have a weakened disease-fighting system (immune system). ? You have nasal allergies or asthma. ? You have a lot of stress. ? You have poor nutrition. What are the signs or symptoms? ? Runny or stuffy (congested) nose. ? Cough. ? Sneezing. ? Sore throat. ? Headache. ? Feeling tired (fatigue). ? Fever. ? Not wanting to eat as much as usual. ? Pain in your forehead, behind your eyes, and over your cheekbones (sinus pain). ? Muscle aches. ? Redness or irritation of the eyes. ? Pressure in the ears or face. How is this treated? URIs usually get better on their own within 7?10 days. Medicines cannot cure URIs, but your doctor may recommend certain medicines to help relieve symptoms, such as: ? Naem-peo-rlgeday cold medicines. ? Medicines to reduce coughing (cough suppressants). Coughing is a type of defense against infection that helps to clear the nose, throat, windpipe, and lungs (respiratory system). Take these medicines only as told by your doctor. ? Medicines to lower your fever. Follow these instructions at home: Activity ? Rest as needed. ? If you have a fever, stay home from work or school until your fever is gone, or until your doctor says you may return to work or lb (more content not included)... Normal [facility] Family Medicine Office/Clini c Noteon 12-26-2023 Family Medicine Office/Clinic Note Chief Complaint cough HPI Staff 53 year old male presents with cough, sneezing, nasal congestion. has bronchitis. symptoms started 1 week ago History of Present Illness Reviewed and agree with above documented HPI by medical laboratory specialist. Patient is a 53-year-old male who presents today with complaint of coughing, sneezing, nasal congestion. He states the symptoms been going on for 1 week. He states that yesterday his presented to the [facility] for treatment of similar symptoms. He states that she was treated for bronchitis when she was here yesterday. Patient states that he thought this began as allergies and has been taking Benadryl at night but has not received much relief from that. He he states he does have a history of hayfever that he usually is affected by around February. He states Tylenol as the only other whdj-blk-rnzpcck medication he has used for treatment. Review of Systems PHQ Score Initial Depression Screen Score: 0 SCORE Physical Exam Vitals & Measurements T: 36.2 ?C(Temporal Artery) HR: 79(Peripheral) BP: 136/84 SpO2: 96% HT: 71 in HT: 180 cm WT: 116 kg WT: 255.2 lb BMI: 35.8 General: Well developed, well nourished, in no acute distress, does not appear ill or septic Eyes: Pupils equal, round, and reactive to light. Conjunctivae and sclerae normal, and extraocular movements intact Ears: No deformity or lesion of external ear. Canals and TM appear normal bilaterally. TM?s intact, not inflamed, with normal light reflex. Hearing grossly normal to conversational speech Nose: moderate nasal mucosa inflammation and edema denies any frontal or maxillary sinus tenderness. Mouth: Mucous membranes moist. Normal oropharynx. Posterior pharynx slightly erythemic without lesions or exudates. Tongue normal. Neck: Palpable anterior cervical nodes bilaterally Lungs: clear to auscultation throughout, no wheezing, no rales. No respiratory distress Cardio: regular rate and rhythm, no murmur Abdomen: Soft, non-distended, non-tender Musculoskeletal: No deformity or scoliosis noted. Normal range of motion. Joints normal. No erythema, edema, effusion, or ecchymosis Extremity: No clubbing, cyanosis, edema, or deformity, with normal ROM in both upper and lower bilateral extremities Neurologic: Grossly normal Skin: No rashes, ulcerations, or suspicious lesions Mental Status: Alert and oriented x3. Normal speech and thought content, normal mood and affect Assessment/Plan No need for swabs or chest x-ray indicated. 1. Viral URI with cough (J06.9: Acute upper respiratory infection, unspecified) Discussed exam and history are consistent with viral illness. Advised of typical duration. Discussed antibiotics unfortunately do not treat viral illnesses, it will take time to run course- usually 7-14 days. Fluids/rest encouraged, PRN Tylenol/Ibuprofen for any pain. May use Mucinex, DayQuil/NyQuil, phenylephedrine for symptomatic treatment. Follow up with PCP if not improving over next 3-5 days or significantly worsening symptoms. Patient verbalized understanding of treatment plan. Portions of this record may have been created with voice recognition artificial intelligence software, specifically [employer] and or [employer]. Occasional wrong-word or `crlut-j-hxmm? substitutions may have occurred due to the inherent limitations of voice recognition and artificial intelligence software. Follow-up No qualifying data available Patient Education Upper Respiratory Infection, Adult, Fkmv-fr-Ldsh Problem List/Past Medical History Ongoing BMI 35.0-35.9,adult Dental abscess Diabetes Elevated blood pressure reading with diagnosis of hypertension Hypertension Historical Diabetes mellitus High blood pressure Hyperlipidemia Procedure/Surgical History Septoplasty for cleft lip nasal deformity (07/22/2022), Knee replacement (10/07/2018), Appendectomy, Hernia, Pilonidal cyst, Tumor. Medications amLODIPine 5 mg Tab atorvastatin 20 mg Tab, 20 mg= 1 tab(s), Oral, Daily buPROPion 150 mg/24 hours XL Tab, 150 mg= 1 tab(s), Oral, q24hr hydrochlorothiazide, 12.5 mg, Oral, Daily Levemir FlexTouch 100 units/mL subcutaneous solution, 35 unit(s), SubCutaneous, Once a day (at bedtime) metformin 1000 mg Tab, 1000 mg= 1 tab(s), Oral, BID Ozempic 2 mg/3 mL (0.25 mg or 0.5 mg dose) subcutaneous solution venlafaxine 75 mg Cap-ER, 75 mg= 1 cap(s), Oral, Daily Allergies No Known Allergies Social History Alcohol Current, Beer, Liquor, 1-2 times per month, 10/03/2020 Substance Abuse Tobacco Never (less than 100 in lifetime) Tobacco Use:. Never Smokeless Tobacco Use:., 12/26/2023 Never (less than 100 in lifetime) Tobacco Use:. Never Smokeless Tobacco Use:., 11/14/2023 Immunizations Vaccine Date Status influenza virus vaccine, inactivated 06/27/2021 Recorded SARS-CoV-2 (COVID-19) mRNA BNT-162b2 vax 06/27/2021 Recorded SARS-CoV-2 (COVID-19) mRNA BNT-162b2 vax 10/28/2020 Recorde (more content not included)... Normal [facility] Comment on above: Result Comment: Elec tronically Signed By: Zelalem Morales.alden\Date and Time Signed: 12/26/23 13:27 EDT Patient Educationon 12-26-19 Patient Education Infectious Disease Upper Respiratory Infection, Adult An upper respiratory infection (URI) affects the nose, throat, and upper airways that lead to the lungs. The most common type of URI is often called the common cold. URIs usually get better on their own, without medical treatment. What are the causes? A URI is caused by a germ (virus). You may catch these germs by: ? Breathing in droplets from an infected person's cough or sneeze. ? Touching something that has the germ on it (is contaminated) and then touching your mouth, nose, or eyes. What increases the risk? You are more likely to get a URI if: ? You are very young or very old. ? You have close contact with others, such as at work, school, or a health care facility. ? You smoke. ? You have long-term (chronic) heart or lung disease. ? You have a weakened disease-fighting system (immune system). ? You have nasal allergies or asthma. ? You have a lot of stress. ? You have poor nutrition. What are the signs or symptoms? ? Runny or stuffy (congested) nose. ? Cough. ? Sneezing. ? Sore throat. ? Headache. ? Feeling tired (fatigue). ? Fever. ? Not wanting to eat as much as usual. ? Pain in your forehead, behind your eyes, and over your cheekbones (sinus pain). ? Muscle aches. ? Redness or irritation of the eyes. ? Pressure in the ears or face. How is this treated? URIs usually get better on their own within 7?10 days. Medicines cannot cure URIs, but your doctor may recommend certain medicines to help relieve symptoms, such as: ? Lqhn-yfv-xtjasnk cold medicines. ? Medicines to reduce coughing (cough suppressants). Coughing is a type of defense against infection that helps to clear the nose, throat, windpipe, and lungs (respiratory system). Take these medicines only as told by your doctor. ? Medicines to lower your fever. Follow these instructions at home: Activity ? Rest as needed. ? If you have a fever, stay home from work or school until your fever is gone, or until your doctor says you may return to work or school. ? You should stay home until you cannot spread the infection anymore (you are not contagious). ? Your doctor may have you wear a face mask so you have less risk of spreading the infection. Relieving symptoms ? Rinse your mouth often with salt water. To make salt water, dissolve ??1 tsp (3?6 g) of salt in 1 cup (237 mL) of warm water. ? Use a cool-mist humidifier to add moisture to the air. This can help you breathe more easily. Eating and drinking ? Drink enough fluid to keep your pee (urine) pale yellow. ? Eat soups and other clear broths. General instructions ? Take cjbs-iyu-qyuhicg and prescription medicines only as told by your doctor. ? Do not smoke or use any products that contain nicotine or tobacco. If you need help quitting, ask your doctor. ? Avoid being where people are smoking (avoid secondhand smoke). ? Stay up to date on all your shots (immunizations), and get the flu shot every year. ? Keep all follow-up visits. How to prevent the spread of infection to others ? Wash your hands with soap and water for at least 20 seconds. If you cannot use soap and water, use hand room maid. ? Avoid touching your mouth, face, eyes, or nose. ? Cough or sneeze into a tissue or your sleeve or elbow. Do not cough or sneeze into your hand or into the air. Contact a doctor if: ? You are getting worse, not better. ? You have any of these: ? A fever or chills. ? Brown or red mucus in your nose. ? Yellow or brown fluid (discharge)coming from your nose. ? Pain in your face, especially when you bend forward. ? Swollen neck glands. ? Pain when you swallow. ? White areas in the back of your throat. Get help right away if: ? You have shortness of breath that gets worse. ? You have very bad or constant: ? Headache. ? Ear pain. ? Pain in your forehead, behind your eyes, and over your cheekbones (sinus pain). ? Chest pain. ? You have long-lasting (chronic) lung disease along with any of these: ? Making high-pitched whistling sounds when you breathe, most often when you breathe out (wheezing). ? Long-lasting cough (more than 14 days). ? Coughing up blood. ? A change in your usual mucus. ? You have a stiff neck. ? You have changes in your: ? Vision. ? Hearing. ? Thinking. ? Mood. These symptoms may be an emergency. Get help right away. Call 911. ? Do not wait to see if the symptoms will go away. ? Do not drive yourself to the hospital. Summary ? An upper respiratory infection (URI) is caused by a germ (virus). The most common type of URI is often called the common cold. ? URIs usually get better within 7?10 days. ? Take htar-gwr-uhiqpxj and prescription medicines only as told by your doctor. This information is not intended to replace advice given to you by your health care (more content not included)... Normal [facility] Ambulatory Visit Summaryon 0 11-14-2023 Ambulatory Visit Summary PARVEEN LEE :1970 Visit Date:11/14/2023 Ambulatory Visit Instructions Your Diagnosis Dental abscess Elevated blood pressure reading with diagnosis of hypertension Your Care Team Attending Physician - ISAI PETERSON PA-C Primary Care Physician - NAYAN GEE DO This Is Your Medications List atorvastatin (atorvastatin 20 mg Tab) buPROPion (buPROPion 150 mg/24 hours XL Tab) clindamycin (clindamycin 300 mg oral cap) hydrochlorothiazide insulin detemir (Levemir FlexTouch 100 units/mL subcutaneous solution) metformin (metformin 1000 mg Tab) naproxen (naproxen 500 mg Tab) semaglutide (Ozempic 2 mg/3 mL (0.25 mg or 0.5 mg dose) subcutaneous solution) venlafaxine (venlafaxine 75 mg Cap-ER) Procedures Performed Septoplasty for cleft lip nasal deformity (07/22/2022), Knee replacement (10/07/2018), Appendectomy, Hernia, Pilonidal cyst. Discharge Vitals Temperature (Oral) 36.8 ?C Heart Rate (Peripheral) 90 Blood Pressure 150/92 Height 71 in Height 180 cm Weight 255.2 lb Weight 116 kg BMI 35.8 Medications What How Much When Why Instructions New clindamycin (clindamycin 300 mg oral cap) 1 Capsules By Mouth 3 times a day Dental abscess Duration: 10 Days Pickup at [facility] 1985 New naproxen (naproxen 500 mg Tab) 1 Tablets By Mouth 2 times a day Dental abscess Duration: 15 Days Pickup at [facility] 1985 Unchanged atorvastatin (atorvastatin 20 mg Tab) 1 Tablets By Mouth Every day Unchanged buPROPion (buPROPion 150 mg/ 24 hours XL Tab) 1 Tablets By Mouth Every 24 hours Unchanged hydrochlorothiazide 12.5 Milligram By Mouth Every day Unchanged insulin detemir (Levemir FlexTouch 100 units/ mL subcutaneous solution) 35 Units Subcutaneous Once a day (at bedtime) Unchanged metformin (metformin 1000 mg Tab) 1 Tablets By Mouth 2 times a day Unchanged semaglutide (Ozempic 2 mg/ 3 mL (0.25 mg or 0.5 mg dose) subcutaneous solution) Unchanged venlafaxine (venlafaxine 75 mg Cap-ER) 1 Capsules By Mouth Every day Pharmacy Information [facility] 1985: [address] [facility] [place], [place] [id number] [phone] Allergies No Known Allergies Problems Ongoing - Any problem that you are currently receiving treatment for. Dental abscess Diabetes Elevated blood pressure reading with diagnosis of hypertension Hypertension Historical - Any problem that you are no longer receiving treatment for. Diabetes mellitus High blood pressure Hyperlipidemia Patient Survey You may receive a survey via text or e-mail asking about your office visit. Please share your experience with us by completing your survey. We appreciate your feedback and thank you for choosing us for your care. Normal [facility] Family Medicine Office/Clini c Noteon 11-14-2023 Family Medicine Office/Clinic Note Chief Complaint tooth pain HPI Staff 53 year old man presents with tooth pain. Patient has cracked tooth on bottom right, pain worsening since Saturday. Tylenol taken with no relief. History of Present Illness Reviewed and agree with above documented HPI by medical laboratory specialist. Portions of this record may have been created with voice recognition artificial intelligence software, specifically [employer] and or [employer]. Substitutions may have occurred due to the inherent limitations of voice recognition and artificial intelligence software. Patient is a 53-year-old male who presents to convenient care, for abdominal pain, of tooth #19, states a fracture a while ago, states started causing some discomfort about 2 days ago, states has had this before, has been placed on antibiotics before, states he does have a difficult time trying to get an appointment with the dentist, states worsening throbbing pain as of today, states when he eats and drinks he still has a sense of taste and smell intact, chews food he has worsening pain. Patient states has other dental problems, but does not have any pain just on the left lower quadrant area, denies any headaches, fevers, chills, nausea or vomiting, difficulty swallowing, cough, chest pain, shortness of breath, or facial paresthesias. Physical Exam Vitals & Measurements T: 36.8 ?C(Oral) HR: 90(Peripheral) BP: 150/92 SpO2: 98% HT: 71 in HT: 180 cm WT: 116 kg WT: 255.2 lb BMI: 35.8 General: Well developed, well nourished, in no acute distress patient does not appear ill or septic, no respiratory distress. Answers questions appropriately and in complete sentences, and follow commands appropriately. Head: Normocephalic/atraumatic no upper respiratory infection is noted. Mouth: Positive dental fracture of tooth #19, below the gingiva, with some gingivitis, generalized plaque is noted as well, other dental fracture but no pain besides tooth #19, there is no periapical abscess, no I&D is indicated at this time. Tender to to touch and examined. Hard and soft palates are within normal limits. Uvula midline without any redness or edema. Mucous membranes moist. Normal oropharynx, and posterior pharynx without erythema, lesions, exudates, or enlarged tonsils. No trismus. No difficulty swallowing. Neck: Neck supple. No masses or palpable cervical nodes. No mastoid tenderness. Lungs: Normal respiratory effort and clear to auscultation throughout. Cardio: regular rate and rhythm, no murmur no chest wall tenderness. Extremity: Patient is able to move all 4 extremities equally without pain or weakness. Neurologic: Grossly normal Skin: No rashes, ulcerations, or suspicious lesions Lymph Nodes: no lad Mental Status: alert, active Assessment/Plan BP 162/84, patient states he does have a history hypertension, saw his primary care doctor 3 weeks ago, continue to take his HCTZ, and will be reevaluated in about a week, possibly increase his doses or possibly added to another hypertension medication. Repeat BP 152/92, slightly better in consistent with his history. 53-year-old male presented to [facility], for dental pain of tooth #19, fracture below the gumline, no I&D abscess was noted, patient did not appear ill or septic, no difficulty swallowing, trismus, difficulty breathing. No facial swelling cellulitis or paresthesias. Patient was given a prescription for clindamycin and naproxen, instructed to take [id number] Tylenol for any additional pain relief, drink plenty water, call his dentist and schedule an appointment. 1. Dental abscess (K04.7: Periapical abscess without sinus) See above Ordered: clindamycin, 300 mg = 1 cap(s), Oral, TID, X 10 day(s), # 30 cap(s), Refills(s) 0, Pharmacy: [facility], 180, cm, 11/14/23 16:57:00 EDT, Height/Length Dosing, 116, kg, 11/14/23 16:57:00 EDT, Weight Dosing naproxen, 500 mg = 1 tab(s), Oral, BID, X 15 day(s), # 30 tab(s), Refills(s) 0, Pharmacy: [facility] 1985, 180, cm, 11/14/23 16:57:00 EDT, Height/Length Dosing, 116, kg, 11/14/23 16:57:00 EDT, Weight Dosing 2. Elevated blood pressure reading with diagnosis of hypertension (I10: Essential (primary) hypertension) See above 3. BMI 35.0-35.9,adult (Z68.35: Body mass index [BMI] 35.0-35.9, adult) The standard range for ages 18 and older is >=18.5 and < 25 kg/m2. Your BMI today was above this range, this falls in the overweight to obese category and there are medical benefits to weight loss. We can offer counselling, referral, and/or medical support in addressing this problem. Your BMI and weight management will be followed at subsequent visits. Follow-up With When Contact Information Dentist Within 2 to 4 days Additional Instructions: Patient instructed to contact his dentist office tomorrow, to schedule an appointment. Patient Education BMI for Adults Managing Your Hypertension Dental Abscess, Rolh-tq-Hevw Problem List/Past Medical History Ongo (more content not included)... Normal [facility] Comment on above: Result Comment: Elec tronically Signed By: KRISTEN MACK, ISAI\.br\Date and Time Signed: 11/14/23 17:49 EDT Patient Educationon 11-14-19 Patient Education Cardiovascular Managing Your Hypertension Hypertension, also called high blood pressure, is when the force of the blood pressing against the love of the arteries is too strong. Arteries are blood vessels that carry blood from your heart throughout your body. Hypertension forces the heart to work harder to pump blood and may cause the arteries to become narrow or stiff. Understanding blood pressure readings A blood pressure reading includes a higher number over a lower number: ? The first, or top, number is called the systolic pressure. It is a measure of the pressure in your arteries as your heart beats. ? The second, or bottom number, is called the diastolic pressure. It is a measure of the pressure in your arteries as the heart relaxes. For most people, a normal blood pressure is below 120/80. Your personal target blood pressure may vary depending on your medical conditions, your age, and other factors. Blood pressure is classified into four stages. Based on your blood pressure reading, your health care provider may use the following stages to determine what type of treatment you need, if any. Systolic pressure and diastolic pressure are measured in a unit called millimeters of mercury (mmHg). Normal ? Systolic pressure: below 120. ? Diastolic pressure: below 80. Elevated ? Systolic pressure: 120?129. ? Diastolic pressure: below 80. Hypertension stage 1 ? Systolic pressure: 130?139. ? Diastolic pressure: 80?89. Hypertension stage 2 ? Systolic pressure: 140 or above. ? Diastolic pressure: 90 or above. How can this condition affect me? Managing your hypertension is very important. Over time, hypertension can damage the arteries and decrease blood flow to parts of the body, including the brain, heart, and kidneys. Having untreated or uncontrolled hypertension can lead to: ? A heart attack. ? A stroke. ? A weakened blood vessel (aneurysm). ? Heart failure. ? Kidney damage. ? Eye damage. ? Memory and concentration problems. ? Vascular dementia. What actions can I take to manage this condition? Hypertension can be managed by making lifestyle changes and possibly by taking medicines. Your health care provider will help you make a plan to bring your blood pressure within a normal range. You may be referred for counseling on a healthy diet and physical activity. Nutrition ? Eat a diet that is high in fiber and potassium, and low in salt (sodium), added sugar, and fat. An example eating plan is called the DASH diet. DASH stands for Dietary Approaches to Stop Hypertension. To eat this way: ? Eat plenty of fresh fruits and vegetables. Try to fill one-half of your plate at each meal with fruits and vegetables. ? Eat whole grains, such as whole-wheat pasta, brown rice, or whole-grain bread. Fill about one-fourth of your plate with whole grains. ? Eat low-fat dairy products. ? Avoid fatty cuts of meat, processed or cured meats, and poultry with skin. Fill about one-fourth of your plate with lean proteins such as fish, chicken without skin, beans, eggs, and tofu. ? Avoid pre-made and processed foods. These tend to be higher in sodium, added sugar, and fat. ? Reduce your daily sodium intake. Many people with hypertension should eat less than 1,500 mg of sodium a day. Lifestyle ? Work with your health care provider to maintain a healthy body weight or to lose weight. Ask what an ideal weight is for you. ? Get at least 30 minutes of exercise that causes your heart to beat faster (aerobic exercise) most days of the week. Activities may include walking, swimming, or biking. ? Include exercise to strengthen your muscles (resistance exercise), such as weight lifting, as part of your weekly exercise routine. Try to do these types of exercises for 30 minutes at least 3 days a week. ? Do not use any products that contain nicotine or tobacco. These products include cigarettes, chewing tobacco, and vaping devices, such as e-cigarettes. If you need help quitting, ask your health care provider. ? Control any long-term (chronic) conditions you have, such as high cholesterol or diabetes. ? Identify your sources of stress and find ways to manage stress. This may include meditation, deep breathing, or making time for fun activities. Alcohol use ? Do not drink alcohol if: ? Your health care provider tells you not to drink. ? You are , may be , or are planning to become . ? If you drink alcohol: ? Limit how much you have to: ? 0?1 drink a day for women. ? 0?2 drinks a day for men. ? Know how much alcohol is in your drink. In the [place] one drink equals one 12 oz bottle of beer (355 mL), one 5 oz glass of wine (148 mL), or one 1? oz glass of hard liquor (44 mL). Medicines Your health care provider may prescribe medicine if lifestyle changes are not enough to get your blood pressure under control and if: ? Your systolic blood pr (more content not included)... Normal [facility] Glucose Test strip manual (B ld) [Mass/Vol]on 07-26-2023 Glucose [Mass/Vol] 154 mg/dL High 74 - 99 mg/dL [facility] Interpretation and review of laboratory results [facility] Glucose [Mass/Vol] 154 mg/dL High 74-99 [facility] Comment on above: Performed By: #### 2 341-6 #### CHRISTY Tariq ([id number]) [facility] [address] [place] [address] Glucose [Mass/Vol] 158 mg/dL High 74 - 99 mg/dL [facility] Interpretation and review of laboratory results [facility] Glucose [Mass/Vol] 158 mg/dL High 74-99 [facility] Comment on above: Performed By: #### 2 341-6 #### CHRISTY Tariq ([id number]) [facility] [address] [place] [address] Surgical pathology studyon 0 07-26-2023 Surgical pathology study Pathology report.total SEE COMMENT Surgical Pathology Case: [id number] Authorizing Provider: Dot Connell MD Collected: 07/26/2023 1249 Ordering Location: [facility] Received: 07/26/2023 125[address] [facility] [place] Pathologist: Aliyah Cervantes MD PhD Intraop: Loyd Calderon DO Specimens: A) - NASAL MASS RIGHT RESECTION, RIGHT SINONASAL TUMOR B) - TURBINATES RIGHT, RIGHT MIDDLE TURBINATE C) - TURBINATES RIGHT, RIGHT MIDDLE TURBINATE PROXIMAL MARGIN D) - NASAL MASS RIGHT RESECTION, RIGHT SINONASAL TUMOR E) - NASAL MASS RIGHT RESECTION, RIGHT CHOANA MARGIN F) - TURBINATES RIGHT, RIGHT MIDDLE TURBINATE POSTERIOR MARGIN G) - SINUS CONTENTS RIGHT, RIGHT MEDIAL MAXILLARY SINUS Path report.final diagnosis SEE COMMENT A. Sinonasal tumor, right, biopsy: -Fragments of inverted papilloma. See note B. Turbinate, right middle turbinate, biopsy: - Fragments of turbinate with squamous metaplasia with focal incipient inverted features, submucosal edema and mild chronic inflammation. C. Turbinate, right, medial proximal margin, biopsy: - Minute fragment of bone and respiratory mucosa with chronic inflammation. - No evidence of inverted papilloma D. Right sinonasal tumor, excision: -Fragments of inverted papilloma. See note E. Right choanal margin, biopsy: -Fragments of respiratory mucosa with chronic inflammation. - No evidence of inverted papilloma F. Right medial turbinate posterior margin, biopsy: -Fragments of respiratory mucosa with chronic inflammation. - No evidence of inverted papilloma G. Right medial maxillary sinus, biopsy: - Fragments of bone with marrow fibrosis and respiratory mucosa with chronic inflammation - No evidence of inverted papilloma. Note: Parts A and D show fragments of inverted papilloma. No evidence of high-grade dysplasia is seen. Laboratory comment By the signature on this report, the individual or group listed as making the Final Interpretation/Diagnosis certifies that they have reviewed this case. 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 The specimen is portioned and entirely submitted for frozen section evaluation in 2 cassettes. LIZZ/ABRAHAM/SIDDHARTH B: Received in formalin, labeled with the patient's name and hospital number and right middle turbinate , is a segment of mucosacovered soft tissue measuring 4.0 x 1.2 x 0.8 cm.The specimen is serially sectioned and entirely submitted in 3 cassettes following decalcification. AE C: Received in formalin, labeled with the patient's name and hospital number and right middle turbinate, proximal margin , is a fragment of mucosa covered of bone measuring 0.5 x 0.5 x 0.1 cm. The specimen is submitted in toto in one cassette following decalcification. AE D: Received in formalin, labeled with the patient's name and hospital number and right sinonasal tumor , is a fragment of castañeda, hemorrhagic soft tissue and bone measuring 3.5 x 1.8 x 1.1 cm. The specimen is serially sectioned and submitted entirely in 4 cassettes following decalcification. SMS/RCC E: Received in formalin, labeled with the patient's name and hospital number and right choana margin , are 2 fragments of castañeda, hemorrhagic soft tissue aggregating to 0.9 x 0.6 x 0.3 cm. The specimen is submitted in toto in one cassette following decalcification. SMS/RCC F: Received in formalin, labeled with the patient's name and hospital number and right middle turbinate posterior margin , is a segment of mucosal covered soft tissue measuring 2.6 x 0.8 x 0.4 cm. The specimen is serially sectioned and entirely submitted in one cassette following decalcification. SMS/RCC G: Received in formalin, labeled with the patient's name and hospital number and right medial maxillary sinus , are multiple, irregular segments of cartilage, bone, and soft tissue aggregating to 2.4 x 0.6 x 0.3 cm. The specimen is entirely submitted in toto in one cassette following decalcification. 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] Basic metabolic 2000 panelon 07-10-2023 Anion gap [Moles/Vol] 17 mmol/L Normal - [facility] Comment on above: Performed By: #### 2 4321-2 #### CHRISTY Tariq ([id number]) [facility] [address] [place] [address] Calcium [Mass/Vol] 10.0 mg/dL Normal 8.6-10.6 [facility] Comment on above: Performed By: #### 2 4321-2 #### CHRISTY JOSEPH L ([id number]) [facility] [address] [place] [address] Chloride [Moles/Vol] 102 mmol/L Normal 98-107 [facility] Comment on above: Performed By: #### 2 4321-2 #### CHRISTY JOSEPH L ([id number]) [facility] [address] [place] [address] CO2 [Moles/Vol] 29 mmol/L Normal 21-32 [facility] Comment on above: Performed By: #### 2 4321-2 #### CHRISTY Tariq ([id number]) [facility] [address] [place] [address] Creatinine [Mass/Vol] 0.84 mg/dL Normal 0.50-1.30 [facility] Comment on above: Performed By: #### 2 4321-2 #### CHRISTY Tariq ([id number]) [facility] [address] [place] [address] GFR/1.73 sq M.predicted MDRD (S/P/Bld) [Vol rate/Area] mL/min/{1.73_m2} Normal >60 [facility] Comment on above: Result Comment: Calc ulations of estimated GFR are performed using the 2020 CKD-EPI Study Refit equation without the race variable for the IDMS-Traceable creatinine methods. https://jasn.asnjournals.org/content/early//ASN.139740 5870 Performed By: #### 2 4321-2 #### CHRISTY Tariq ([id number]) [facility] [address] [place] [address] Glucose [Mass/Vol] 129 mg/dL High 74-99 [facility] Comment on above: Performed By: #### 2 4321-2 #### CHRITSY Tariq ([id number]) [facility] [address] [place] [address] Potassium [Moles/Vol] 4.0 mmol/L Normal 3.5-5.3 [facility] Comment on above: Performed By: #### 2 4321-2 #### CHRISTY Tariq ([id number]) [facility] [address] [place] [address] Sodium [Moles/Vol] 144 mmol/L Normal 136-145 [facility] Comment on above: Performed By: #### 2 4321-2 #### CHRISTY Tariq ([id number]) [facility] [address] [place] [address]96 Urea nitrogen [Mass/Vol] 11 mg/dL Normal 6-23 [facility] Comment on above: Performed By: #### 2 4321-2 #### CHRISTY Tariq ([id number]) [facility] [address] [place] [address]00 Blood type and Indirect anti body screen panel (Bld)on 07-10-2023 ABO group Nom (Bld) A Normal [facility] Comment on above: Performed By: #### 3 4532-2 #### CHRISTY Tariq ([id number]) [facility] ([facility]) [address] [place] [address] Blood group antibody screen Ql Negative [facility] Comment on above: Performed By: #### 3 4532-2 #### CHRISTY Tariq ([id number]) [facility] ([facility]) [address] [place] [address] D Ag Ql (Bld) Positive [facility] Comment on above: Result Comment: 2nd ABO test required. Order and Collect VERAB Performed By: #### 3 4532-2 #### CHRISTY Tariq ([id number]) [facility] ([facility]) [address] [place] [address] CBC panel Auto (Bld)on 07-10 Erythrocyte distribution width (RBC) [Ratio] 13.9 % Normal 11.5-14.5 [facility] Comment on above: Performed By: #### 5 8410-2 #### CHRISTY Tariq ([id number]) [facility] [address] [place] [address] Hematocrit (Bld) [Volume fraction] 39.3 % Low 41.0-52.0 [facility] Comment on above: Performed By: #### 5 8410-2 #### CHRISTY Tariq ([id number]) [facility] [address] [place] [address]015 Hemoglobin (Bld) [Mass/Vol] 13.0 g/dL Low 13.5-17.5 [facility] Comment on above: Performed By: #### 5 8410-2 #### CHRISTY Tariq ([id number]) [facility] [address] [place] [address] 28105 MCH (RBC) [Entitic mass] 29.3 pg Normal 26.0-34.0 [facility] Comment on above: Performed By: #### 5 8410-2 #### CHRISTY Tariq ([id number]) [facility] [address] [place] [address] 21332 MCHC (RBC) [Mass/Vol] 33.1 g/dL Normal 32.0-36.0 [facility] Comment on above: Performed By: #### 5 8410-2 #### CHRISTY Tariq ([id number]) [facility] [address] [place] [address]3622 MCV (RBC) [Entitic vol] 89 fL Normal 80-100 [facility] Comment on above: Performed By: #### 5 8410-2 #### CHRISTY Tariq ([id number]) [facility] [address] [place] [address] Nucleated RBC/100 WBC (Bld) [Ratio] 0.0 /100 WBCs Normal 0.0-0.0 [facility] Comment on above: Performed By: #### 5 8410-2 #### CHRISTY JOSEPH L ([id number]) [facility] [address] [place] [address] Platelets (Bld) [#/Vol] 221 x10*3/uL Normal 150-450 [facility] Comment on above: Performed By: #### 5 8410-2 #### CHRISTY Tariq ([id number]) [facility] [address] [place] [address] RBC (Bld) [#/Vol] 4.44 x10*6/uL Low 4.50-5.90 [facility] Comment on above: Performed By: #### 5 8410-2 #### CHRISTY Tariq ([id number]) [facility] [address] [place] [address] WBC (Bld) [#/Vol] 6.6 x10*3/uL Normal 4.4-11.3 [facility] Comment on above: Performed By: #### 5 8410-2 #### CHRISTY Tariq ([id number]) [facility] [address] [place] [address] SINUS WITH CONTRAST VOLUM ETRIC SURGICAL PLANNINGon 07-10-2023 CT SINUS WITH CONTRAST VOLUMETRIC SURGICAL PLANNING Interpreted By: Gerardo Frances, STUDY: CT SINUS WITH CONTRAST VOLUMETRIC SURGICAL PLANNING INDICATION: Signs/Symptoms:right sinonasal inverted papilloma COMPARISON: Head CT 03/18/2020. ACCESSION NUMBER(S): [id number] ORDERING CLINICIAN: DOT MELENDEZ TECHNIQUE: CT examination of the paranasal sinuses was performed utilizing the Wanderu protocol. These images were used to create axial, coronal and sagittal reformatted images through the paranasal sinuses. 90 cc Omnipaque 350 was administered intravenously. The images were reviewed in bone and soft-tissue windows. FINDINGS: Sinocranial & sinoorbital junctions: The lamina papyracea, cribriform plates and fovea ethmoidalis are intact. Nasal septum and nasal cavity: Rounded soft tissue effacing the superior and middle meatus of the right nasal cavity measuring 2.7 x 0.8 x 1.6 cm (series 201, image 70, series 202, image 80). The right middle turbinate is deviated laterally. Nasal septum is deviated to the left with superimposed 9 mm spur contacting the medial wall of the left maxillary sinus. Frontal sinuses, drainage pathways, and associated anatomic variants: The frontal sinuses are well developed. The frontal sinuses and frontal sinus outflow tracts are clear. Ethmoid sinuses: Mild mucosal thickening of the ethmoid air cells, predominantly anteriorly. Sphenoid sinuses, drainage pathways, and associated variants: The sphenoid sinuses are clear. The sphenoethmoidal recesses demonstrate mild mucosal thickening and partial effacement, hiqcp-bnhwqdo-jglv-left. . The carotid canals are covered by bone. Maxillary sinuses, drainage pathways, and associated variants: Infundibulum of the right ostiomeatal unit is partially effaced secondary to mucosal thickening and lateralized uncinate process from right nasal cavity lesion detailed above. Mild mucosal thickening of the right maxillary sinus. Left maxillary sinus and ostiomeatal unit are clear. Other: Partially visualized intracranial structures: Normal Orbits: Normal Mastoid air cells: Normal IMPRESSION: Rounded soft tissue lesion partially effacing the right nasal cavity measuring up to 2.7 cm laterally deviating the right middle turbinate/uncinate process. Findings may represent residual inverted papilloma. Leftward deviation of the nasal septum with superimposed 9 mm leftward projecting spur. Scattered mucosal disease of the paranasal sinuses detailed. Signed by: Gerardo Frances 07/10/2023 1:10 PM Dictation workstation: [id number] [facility] Comment on above: Order Comment: Geovany bradshaw/volumetric protocol for sinus surgery Operative Reporton Operative Report SURGERY DATE: 2022 PREOPERATIVE DIAGNOSIS: Right nasal mass POSTOPERATIVE DIAGNOSIS: Right nasal inverted papilloma OPERATION: Removal of nasal mass ANESTHESIA: General endotracheal COMPLICATIONS: None FINDINGS: Polypoid and papillary mass filling the posterior right nasal cavity and nasopharynx. INDICATIONS: This 52-year-old man presented with a large mass filling the posterior nasal cavity and nasopharynx suspicious for inverted papilloma. Frozen section obtained intraoperatively was consistent with inverted papilloma. PROCEDURE: The patient identified in the Holding Area and taken back to the Operating Room where he was placed in a supine position. After induction of general endotracheal anesthesia, the table was turned and the face was draped in a sterile fashion. The right nose was copiously irrigated and Afrin-soaked pledgets were placed in the nose. After waiting adequate time for decongestion, the nose was approached with the nasal endoscope. Lidocaine 1% with 1:100,000 epinephrine was injected into the base of the mass superior to the middle turbinate. After waiting adequate time for hemostasis, several gross pathology specimens were obtained using an ethmoid forcep. This resulted in moderate bleeding which was controllable with Afrin-soaked pledgets. Then dissection was changed to use of a microdebrider and starting in the inferior nasal cavity and extending superiorly from an anterior to posterior fashion, the mass was debrided using a microdebrider as well as ethmoid forceps. Eventually the mass was removed from the lower nasal cavity as well as the nasopharynx and then dissection continued superiorly using the microdebrider as far as was possible without extensive sinus surgery. Decision was made because of the extent of the disease extending superiorly above the middle turbinate to resect as much of inverted papilloma as possible and then to refer the patient to a tertiary care center for definitive extirpation of his inverted papilloma superiorly in the sinonasal cavity. In total, almost all of the patient's inverted papilloma was removed although there was some gross disease at the superior curve of the middle turbinate. In order to minimize the risk of postoperative bleeding, Sinu-Foam was injected around the residual papilloma. The patient's nasal airway was dramatically improved by the procedure and he was awakened and taken to the Recovery Room in good condition. Sada Beard Jr. Dictated: 06/19/2023 [id number] Transcribed: 06/20/2023 cc:Nayan Gee [facility] Comment on above: Result Comment: Elec tronically Signed By: Hunter PUCKETT, Millie Osborne\.br\Date and Time Signed: 06/27/23 08:48 EST Creatinineon 06-25-2023 Creatinine [Mass/Vol] 0.66 mg/dL Normal 0.50-1.30 [facility] Comment on above: Performed By: #### 2 160-0 #### JAYLA CUNHA ([id number]) [facility] (EM) [address] [place] [address] Creatinine [Mass/Vol]on GFR/1.73 sq M.predicted MDRD (S/P/Bld) [Vol rate/Area] mL/min/{1.73_m2} Normal >60 [facility] Comment on above: Result Comment: Calc ulations of estimated GFR are performed using the 2020 CKD-EPI Study Refit equation without the race variable for the IDMS-Traceable creatinine methods. https://jasn.asnjournals.org/content/early//ASN.334962 0177 Performed By: #### 2 160-0 #### JAYLA CUNHA ([id number]) [facility] ([facility]) [address] [place] [address] Consent for Treatmenton 05-23 Consent for Treatment [id number] F Normal [facility] Discharge Instructionson Discharge Instructions [id number] F Normal [facility] ED Clinical Summaryon 2022 ED Clinical Summary (Inserted Image. Jen ble to display) [place] [id number] ED Clinical Summary Person Information Name: PARVEEN LEE Ying [place]iss[place] Age: 52 Years : 1970 Sex: Male Language: Welsh PCP: NAYAN GEE DO Marital Status: Phone: [phone] Visit Id: Visit Reason: Mouth pain; DENTAL PAIN Speciality: Acuity: 4 Enc Type: Emergency Med Service: Emergency Arrival: 06/15/2023 00:33:50 Discharge: 06/15/2023 01:29:24 LOS: 000 00:56 Checkin: 06/15/2023 00:33:50 Checkout: 06/15/2023 01:29:24 Dispo Type: Home (Routine DC) EVENTS: Event Name Event Status Request Date/Time Start Date/Time Complete Date/Time Arrive Complete 06/15/2023 00:33:50 06/15/2023 00:33:50 06/15/2023 00:33:50 Document Home Meds Request 06/15/2023 00:33:50 Triage Complete 06/15/2023 00:33:50 06/15/2023 00:40:24 06/15/2023 00:40:24 Bed Assign Complete 06/15/2023 00:35:02 06/15/2023 00:35:02 06/15/2023 00:35:02 Dr Exam Complete 06/15/2023 00:35:02 06/15/2023 00:36:57 06/15/2023 00:36:57 RN Exam Complete 06/15/2023 00:35:02 06/15/2023 00:44:57 06/15/2023 00:44:57 Registration Complete 06/15/2023 00:36:57 06/15/2023 00:51:09 06/15/2023 00:51:09 Reg Complete Request 06/15/2023 00:51:09 Reg Bed Request Complete 06/15/2023 00:51:09 06/15/2023 00:51:09 06/15/2023 00:51:09 Meds Admin Complete 06/15/2023 01:16:22 06/15/2023 01:28:33 Discharge Complete 06/15/2023 01:18:21 06/15/2023 01:29:33 06/15/2023 01:29:33 Transfer Complete 06/15/2023 01:29:33 06/15/2023 01:29:33 06/15/2023 01:29:33 ADDRESS: [address] [place] [address] [place] [phone] PHYS DOC NOTES: MEDICAL INFORMATION: Prescriptions Given: New Medications [id number], [address] [place] [phone], [phone] acetaminophen-hydrocodon e (Creekside 325 mg-5 mg oral tablet) 1 Tablets By Mouth every 6 hours as needed for pain for 3 Days. Refills: 0. amoxicillin (amoxicillin 500 mg Cap) 1 Capsules By Mouth 3 times a day for 5 Days. Refills: 0. Medications to Continue with No Changes Other Medications atorvastatin (atorvastatin 20 mg Tab) 1 Tablets By Mouth every day. buPROPion (buPROPion 150 mg/24 hours XL Tab) 1 Tablets By Mouth every 24 hours. escitalopram (Lexapro) 10 Milligram By Mouth every day. hydrochlorothiazide 12.5 Milligram By Mouth every day. insulin detemir (Levemir FlexTouch 100 units/mL subcutaneous solution) 35 Units Subcutaneous once a day (at bedtime). metformin (metformin 1000 mg Tab) 1 Tablets By Mouth 2 times a day. venlafaxine (venlafaxine 75 mg Cap-ER) 1 Capsules By Mouth every day. PATIENT EDUCATION INFORMATION: Instructions: Dental Pain, Gvgp-gf-Wgcs Follow up: With: Address: When: Dental: [facility] [phone] In 3 days 06/18/2023 With: Address: When: Dental: [employer] [facility] [phone] In 3 days 06/18/2023 With: Address: When: Dental: [facility] [phone] In 3 days 06/18/2023 With: Address: When: NAYAN GERARD [address] [place] [address] Business (1) In 3 days 06/18/2023 Comments: Take the antibiotics as prescribed to completed the course. You can use the pain medication every 6 hours as needed for pain. Please follow-up with your primary care doctor next 2 to 3 days. Please return to the ED for any new or worsening symptoms. DIAGNOSIS: Pain, dental Normal [facility] ED Note-Nursingon 06-15-2023 ED Note-Nursing pt given d/c instructions and educated on importance of follow up. pt educated on new medications. pt verbalized understanding of instructions and readiness for d/c. pt walked self ambulatory to waiting room in stable condition Normal [facility] ED Note-Nursing pt arrived to ed fro m home via private car with c/o right lower mouth pain. pt seen dentist 2 weeks ago and was told he needed a root canal. pt states tonight he has had increased pain d/t right lower broken tooth. pt states the pain goes to the back of his head. pt denies any other complaints. pt took tylenol 4 hours ago. Normal [facility] ED Note-Physicianon 06-15-20 ED Note-Physician Basic Information Time Seen: Mohan Pinzon DO 06/15/2023 00:36 Chief Complaint seen dentist a couple week ago and told he needs a root canal. has broke tooth on right side. pain got worse earlier today History of Present Illness Patient is a 52-year-old male with past medical history of diabetes, hypertension, hyperlipidemia presenting to the ED for evaluation of dental pain. Patient is states he had a small chip in his tooth saw dentist a couple weeks ago and was told that he needs a root canal. Has an appointment on Saturday however states part of the tooth broke off yesterday has had increasing pain. Patient attempted to get into the dentist however they were closed by the time he got there also went to urgent care they were unfortunately closed. Patient denies any fevers, chills, difficulty swallowing. Review of Systems A 10 point review of systems is negative except as noted above. Medical and Surgical History: Reviewed and noted Social history: Lives at home Tobacco: Denies Physical Exam Vitals & Measurements T: 36.6 ?C(Oral) HR: 80(Peripheral) RR: 17 BP: 180/88 SpO2: 99% HT: 180.34 cm WT: 117.9 kg BMI: 36.25 General: Well developed, non toxic appearing, no acute distress HEENT: Head atraumatic, Mucosa moist, hearing grossly normal, dental caries noted throughout particularly on tooth 30 with small chip noted on 230 Neck: No JVD, tracheal deviation Cardiac: Regular rate, rhythm, no murmurs, or gallops, 2+ radial pulses Respiratory: Lungs clear to auscultation B/L, normal respiratory effort Extremities: No edema noted in the LE B/L, no tenderness to palpation Neurologic: Alert and oriented, speech clear Skin: No rashes or lesions Psych: Appropriate mood and behavior Medical Decision Making MEDICAL DECISION MAKING Number and Complexity of Problems Differential Diagnosis: [] [facility] Data External documents reviewed: [] My EKG interpretation: [] My CT interpretation: [] My X-ray interpretation: [] My Ultrasound interpretation: [] Decision rules/scores evaluated: [] Discussed with: [] Treatment and Disposition ED Course: Patient is a 52-year-old male presenting to the ED for evaluation of dental pain. Patient nontoxic and on arrival, no acute distress. Does have a small dental fracture noted on examination in addition to erythema along the gumline. No drainable abscess. Patient is given topical pain medication, short course of pain medication for home. He is started on amoxicillin for treatment. He is given referral to multiple dentist. He is to return to the ED for any new or worsening symptoms. Shared decision making: [] Code status: [] Assessment/Plan Pain, dental (K08.89: Other specified disorders of teeth and supporting structures) Orders: acetaminophen-hydrocodon e, 1 tab(s), Oral, q6hr for pain for 3 day(s), 7 tab(s), Refill(s) 0, [facility] #[id number], 180.3, cm, 06/15/23 0:40:00 EST, Height/Length Dosing, 117.9, kg, 06/15/23 0:40:00 EST, Weight Dosing acetaminophen-hydrocodon e, 1 EA, Tab, Oral, Once, Stop date 06/15/23 1:15:00 EST, STAT, Start date 06/15/23 1:15:00 EST amoxicillin, 500 mg = 1 cap(s), Oral, TID, X 5 day(s), # 15 cap(s), Refills(s) 0, Pharmacy: [facility] #[id number], 180.3, cm, 06/15/23 0:40:00 EST, Height/Length Dosing, 117.9, kg, 06/15/23 0:40:00 EST, Weight Dosing amoxicillin, 500 mg = 1 cap(s), Cap, Oral, Once, Stop date 06/15/23 1:15:00 EST, STAT, Start date 06/15/23 1:15:00 EST, 06/15/23 1:15:00 EST benzocaine topical, 1 power, Gel, Topical, Once, Stop date 06/15/23 1:15:00 EST, STAT, Start date 06/15/23 1:15:00 EST lidocaine, 100 mg, 10 mL, Injection, TransDermal, Once, Stop date 06/15/23 1:15:00 EST, STAT, Start date 06/15/23 1:15:00 EST Medications Administered Given amoxicillin 500 mg Cap, 500 mg, Oral benzocaine topical 20% gel, 1 power, Topical lidocaine 1% Inj 10 mL, 100 mg, TransDermal TO GO acetaminophen-hydrocodon e 325 mg - 5 mg, 1 EA, Oral Disposition Plan Discharge Prescription List Prescriptions amoxicillin 500 mg Cap, 500 mg= 1 cap(s), Oral, TID Creekside 325 mg-5 mg oral tablet, 1 tab(s), Oral, q6hr, PRN Follow-up With When Contact Information Dental: [facility] [phone] In 3 days 06/18/2023 EST Additional Instructions: Dental: [facility] [phone] In 3 days 06/18/2023 EST Additional Instructions: Dental: [facility] [phone] In 3 days 06/18/2023 EST Additional Instructions: NAYAN GEE In 3 days 06/18/2023 EST [address] [id number] [facility] (1) Additional Instructions: Take the antibiotics as prescribed to completed the course. You can use the pain medication every 6 hours as needed for pain. Please follow-up with your primary care doctor next 2 to 3 days. Please return to the ED for any new or worsening symptoms. Patient Education Dental Pain, Dwee-ns-Ddjg Problem List/Past Medical History Ongoing Eufemia (more content not included)... Normal [facility] Comment on above: Result Comment: Elec tronically Signed By: Mohan Pinzon DO\.alden\Date and Time Signed: 06/15/23 02:38 EST ED Patient Education Noteon 06-15-2023 ED Patient Education Note Dentistry Dental Pain Dental pain is often a sign that something is wrong with your teeth or gums. You can also have pain after a dental treatment. If you have dental pain, it is important to contact your dentist, especially if the cause of the pain is not known. Dental pain may hurt a lot or a little and can be caused by many things, including: ? Tooth decay (cavities or caries). ? Infection. ? The inner part of the tooth being filled with pus (an abscess). ? Injury. ? A crack in the tooth. ? Gums that move back and expose the root of a tooth. ? Gum disease. ? Abnormal grinding or clenching of teeth. ? Not taking good care of your teeth. Sometimes the cause of pain is not known. You may have pain all the time, or it may happen only when you are: ? Chewing. ? Exposed to hot or cold temperatures. ? Eating or drinking foods or drinks that have a lot of sugar in them, such as soda or candy. Follow these instructions at home: Medicines ? Take nvxx-akh-itnrdxs and prescription medicines only as told by your dentist. ? If you were prescribed an antibiotic medicine, take it as told by your dentist. Do not stop taking it even if you start to feel better. Eating and drinking Do not eat foods or drinks that cause you pain. These include: ? Very hot or very cold foods or drinks. ? Sweet or sugary foods or drinks. Managing pain and swelling ? If told, put ice on the painful area of your face. To do this: ? Put ice in a plastic bag. ? Place a towel between your skin and the bag. ? Leave the ice on for 20 minutes, 2?3 times a day. ? Take off the ice if your skin turns bright red. This is very important. If you cannot feel pain, heat, or cold, you have a greater risk of damage to the area. Brushing your teeth ? [place] your teeth twice a day using a fluoride toothpaste. ? Use a toothpaste made for sensitive teeth as told by your dentist. ? Use a soft toothbrush. General instructions ? Floss your teeth at least once a day. ? Do not put heat on the outside of your face. ? Rinse your mouth often with salt water. To make salt water, dissolve ??1 tsp (3?6 g) of salt in 1 cup (237 mL) of warm water. ? Watch your dental pain. Let your dentist know if there are any changes. ? Keep all follow-up visits. Contact a dentist if: ? You have dental pain and you do not know why. ? Medicine does not help your pain. ? Your symptoms get worse. ? You have new symptoms. Get help right away if: ? You cannot open your mouth. ? You are having trouble breathing or swallowing. ? You have a fever. ? Your face, neck, or jaw is swollen. These symptoms may be an emergency. Get help right away. Call your local emergency services (911 in the [place] ? Do not wait to see if the symptoms will go away. ? Do not drive yourself to the hospital. Summary ? Dental pain may be caused by many things, including tooth decay, injury, or infection. In some cases, the cause is not known. ? Dental pain may hurt a lot or very little. You may have pain all the time, or you may have it only when you eat or drink. ? Take erxt-pdn-oizgzdi and prescription medicines only as told by your dentist. ? Watch your dental pain for any changes. Let your dentist know if symptoms get worse. This information is not intended to replace advice given to you by your health care provider. Make sure you discuss any questions you have with your health care provider. Document Revised: 04/12/2021 Document Reviewed: 04/12/2021 [employer] Patient Education ? 2022 [employer] Normal [facility] ED Patient Summaryon 023 ED Patient Summary (Inserted Image. Jen ble to display) [place] [id number] Patient Discharge Instructions Person Information Name: PARVEEN LEE Age: 52 Years Arrival Date: 06/15/2023 00:33:50 Discharge Diagnosis: Pain, dental Primary Care Physician: NAYAN GEE DO Provider Information Primary Provider: Mohan Pinzon DO Advanced Multiple Knife Edge Trimmer Operator:None The exam and treatment you received in the Emergency Department were for an urgent problem and are not intended as complete care. It is important that you follow up with a doctor, nurse practitioner, or physician?s physical therapy assistant instructor for ongoing care. If your symptoms become worse or you do not improve as expected and you are unable to reach your usual health care provider, you should return to the Emergency Department. We are available 24 hours a day. PARVEEN LEE has been given the following list of patient education materials, prescriptions and follow-up instructions: Follow-up Instructions: With: Address: When: Dental: [facility] [phone] In 3 days 06/18/2023 With: Address: When: Dental: [employer] [facility] [phone] In 3 days 06/18/2023 With: Address: When: Dental: [facility] [phone] In 3 days 06/18/2023 With: Address: When: NAYAN GEE [address] [place] [id number] [facility] (1) In 3 days 06/18/2023 Comments: Take the antibiotics as prescribed to completed the course. You can use the pain medication every 6 hours as needed for pain. Please follow-up with your primary care doctor next 2 to 3 days. Please return to the ED for any new or worsening symptoms. In the event that this physician does not participate in your insurance network, please consult with your insurance company to find a nearby participating provider. Patient Education Materials: Dental Pain, Bbgy-gy-Cvnr A MESSAGE TO ALL PATIENTS REGARDING OPIOIDS PRESCRIPTION OPIOIDS: WHAT YOU NEED TO KNOW Prescription opioids can be used to help relieve gidmwfeh-iy-jeugkc pain and are often prescribed following a surgery or injury, or for certain health conditions. These medications can be an important part of the treatment but also come with serious risks. It is important to work with your healthcare provider to make sure you are getting the safest, most effective care. WHAT ARE THE RISKS AND SIDE EFFECTS OF OPIOID USE? Prescription opioids carry serious risks of addiction and overdose, especially with prolonged use. An opioid overdose, often marked by slowed breathing, can cause sudden . The use of prescription opioids can have a number of side effects as well, even when taken as directed: ? Tolerance?meaning you might need to take more of the medication for the same pain relief ? Physical dependence?meaning you have symptoms of withdrawal when a medication is stopped ? Increased sensitivity to pain ? Constipation ? Nausea, vomiting, and dry mouth ? Sleepiness and dizziness ? Confusion ? Depression ? Low levels of testosterone that can result in lower sex drive, energy, and strength ? Itching and sweating RISKS ARE GREATER WITH: ? History of drug misuse, substance use disorder, or overdose ? Mental health conditions (such as depression or anxiety) ? Sleep apnea ? Older age (65 years and older) ? Avoid alcohol while taking prescription opioids. Also, unless specifically advised by your health care provider, medications to avoid include: ? Benzodiazepines (such as Xanax or Valium) ? Muscle relaxants (such as Soma or Flexeril) ? Hypnotics (such as Ambien or Lunesta) ? Other prescription opioids KNOW YOUR OPTIONS Talk to your health care provider about ways to manage your pain that don?t involve prescription opioids. Some of these options may actually work better and have fewer risks and side effects. Options may include: ? Pain relievers such as acetaminophen, ibuprofen, and naproxen ? Some medication that are also used for depression or seizures ? Physical therapy and exercise ? Cognitive behavioral therapy, a psychological, goal-directed approach, in which patients learn how to modify physical, behavioral, and emotional triggers of pain and stress. IF YOU ARE PRESCRIBED OPIOIDS FOR PAIN: ? Never take opioids in greater amounts or more often than prescribed. ? Follow up with your primary health care provider. o Work together to create a plan on how to manage your pain. o Talk about ways to help manage your pain that don?t involve prescription opioids. o Talk about any and all concerns and side effects. ? Help prevent misuse and abuse o Never sell or share prescription opioids. o Never use another person?s prescription opioids. ? Store prescription opioids in a secure place and out of reach of others (this may include visitors, children, friends, and family). ? Safely dispose o (more content not included)... [facility] IntraOperative Documentson 08-04-2022 IntraOperative Documents [id number] FF [facility] CHEMISTRYOrdered By: Blanca Arzate on 06-03-2023 HbA1c (Bld) [Mass fraction] 7.8 % High <=5.9% [facility] ChemAutoSS Consent for Treatmenton 05-22 Consent for Treatment [id number] F [facility] [id number] 06-03-2023 HbA1c (Bld) [Mass fraction] 7.8 % High <=5.9 [facility] Comment on above: Performed By: #### [id number] ####[facility] [id number] [place] [address] Main OR Intraoperative Recor neena 06-03-2023 Main OR Intraoperative Record IntraOp Document Type FT Summary Primary Physician: Millie Harrison MD Finalized Date/Time: 06/03/23 10:17:37 Pt. Name: PARVEEN LEE Ying Wise./Sex: 1970 Male Med Rec #: [id number] Physician: Millie Harrison MD Financial #: [id number] Pt. Type: A Room/Bed: Admit/Disch: 05/30/23 08:49:01 - 05/30/23 15:45:00 Institution: Case Times FT Entry 1 Patient Times In Room 05/30/23 09:40:00 Out Room 05/30/23 11:44:00 Procedure Times Start 05/30/23 10:00:00 Stop 05/30/23 11:35:00 Anesthesia Times Start 05/30/23 09:40:00 Stop 05/30/23 11:44:00 Last Modified By: Lyndsay Luis RN 05/30/23 11:46:12 General Comments: 06/03/23 Chart opened to review and send charges LRoth CSFA Case Attendance FT Entry 1 Entry 2 Entry 3 Case Attendee Christal MONTOYA, Tammie Harrison MD, Millie Luis RN, Lyndsay Torres Role Performed BROOM BUNDLER Surgeon - Primary Welder Fitter - Primary Time In 05/30/23 09:40:00 05/30/23 09:40:00 05/30/23 09:40:00 Time Out 05/30/23 11:44:00 05/30/23 11:44:00 05/30/23 11:44:00 Procedure NASAL ENDOSCOPY(Right), NASAL ENDOSCOPY(Right), NASAL ENDOSCOPY(Right), SEPTOPLASTY IMAGE SEPTOPLASTY IMAGE SEPTOPLASTY IMAGE GUIDED(Right) GUIDED(Right) GUIDED(Right) Comments DR. JOSE JUAN ALFARO OUT OF ROOM FOR LUNCH AT 1110 - 1140 Last Modified By: Janelle MONK, Lyndsay Luis RN, Lyndsay Luis RN, Lyndsay Torres 05/30/23 Montse P 05/30/23 Montse P 05/30/23 11:46:24 11:46:24 11:46:24 Entry 4 Entry 5 Entry 6 Case Attendee Dayana Mtz Ii, Peyton Doss CST, Nayan Role Performed Welder Fitter - Primary Scrub - Primary Staff - Other Time In 05/30/23 09:40:00 05/30/23 09:40:00 05/30/23 09:40:00 Time Out 05/30/23 11:44:00 05/30/23 11:44:00 05/30/23 11:10:00 Procedure NASAL ENDOSCOPY(Right), NASAL ENDOSCOPY(Right), NASAL ENDOSCOPY(Right), SEPTOPLASTY IMAGE SEPTOPLASTY IMAGE SEPTOPLASTY IMAGE GUIDED(Right) GUIDED(Right) GUIDED(Right) Comments OUT OF ROOM FOR LUNCH HELPING IN ROOM 1110 - 1140 Last Modified By: Janelle MONK, Lyndsay Luis RN, Lyndsay Raya CST, Kathia Willard P 05/30/23 Montse P 05/30/23 06/03/23 10:10:32 11:46:24 11:46:24 Entry 7 Case Attendee Nayan Doss CST Role Performed Scrub - Primary Time In 05/30/23 11:10:00 Time Out 05/30/23 11:44:00 Procedure NASAL ENDOSCOPY(Right), SEPTOPLASTY IMAGE GUIDED(Right) Comments GIVING Jimi MORRIS LUNCH BREAK. Last Modified By: Janelle MONK, Lyndsay Torres 05/30/23 11:46:24 Perioperative Protocols FT Pre-Care Text: Implements protective measures prior to operative or invasive procedure, confirms identity before the operative or invasive procedure, verifies operative procedure, surgical site, and laterality Entry 1 Procedure(s) NASAL ENDOSCOPY(Right), Patient Identity Birthday, ID Band SEPTOPLASTY IMAGE Verified (select at Check, Patient GUIDED(Right) least 2): Participation Consents / H and P Anesthesia Consent, Operative Site Present Verified HandP, Surgery/Procedure Marking Verified Consent Surgical Site Yes Laterality Verified Yes Verified Procedure Verified Yes Correct Patient Yes Position Verified Availability Equipment, Medication Prep Dry n/a Verified (If Applicable) PreOp Antibiotic No Time Out Hunter PUCKETT, Millie Osborne, Given Participants Tammie Siegel CRNA, Janelle MONK, Lyndsay Torres, Dayana Mtz Ii, Peyton Morris, Romario DELA CRUZ, Nayan Time Out Complete 05/30/23 09:59:00 Outcomes Met? Yes Last Modified By: Janelle MONK, Lyndsay Torres 05/30/23 10:09:08 Post-Care Text: The patient is free from signs and symptoms of injury caused by extraneous objects Allergy Information FT Pre-Care Text: Verifies allergies Entry 1 Allergies Reviewed? Yes Allergies Reviewed Self/Patient With Outcomes Met? Yes Last Modified By: Janelle MONK, Lyndsay Torres 05/30/23 10:09:13 Post-Care Text: The patient received appropriate medication(s) safely administered during the perioperative period Surgical Procedures FT Entry 1 Entry 2 Procedure Description Procedure NASAL ENDOSCOPY SEPTOPLASTY IMAGE GUIDED Modifiers Right Right Surgeon Description IMAGE GUIDED NASAL IMAGE GUIDED NASAL ENOSCOPY, REMOVAL OF ENOSCOPY, REMOVAL OF RIGHT NASAL MASS, RIGHT NASAL MASS MICRODEBRIDER-ASSISTED Primary Procedure No Yes Primary Surgeon Hunter PUCKETT, Millie Harrison MD, Millie Osborne Start 05/30/23 10:00:00 05/30/23 10:00:00 Stop 05/30/23 11:35:00 05/30/23 11:35:00 Anesthesia Type General General Surgical Service ENT ENT Wound Class 2 - Clean-Contaminated 2 - Clean-Contaminated Last Modified By: Janelle MONK, Lyndsay Luis RN, Lyndsay Torres 05/30/23 Montse Torres 05/30/23 11:46:55 11:46:55 General Case Data FT Pre-Care Text: Classifies surgical wound, implements aseptic technique, initiates traffic control Entry 1 Case Information OR OR 2 FT Case Level Level 3 Wound Class 2 - Clean-Cont (more content not included)... [facility] Physician Orderon 06-03-2023 Physician Order [id number] F [facility] Consent for Anesthesiaon Consent for Anesthesia [id number]#[id number] F [facility] Discharge Instructionson Discharge Instructions [id number]#[id number] F [facility] IntraOperative Documentson 1 07-31-2022 IntraOperative Documents [id number] F [facility] Main OR PACU I Recordon 05-22 Main OR PACU I Record PACU Phase I Docum ent Type FT Summary Primary Physician: Millie Harrison MD Finalized Date/Time: 05/31/23 07:45:42 Pt. Name: PARVEEN LEE/Sex: 1970 Male Med Rec #: [id number] Physician: Millie Harrison MD Financial #: [id number] Pt. Type: A Room/Bed: [facility] Admit/Disch: 05/30/23 08:49:01 - 05/30/23 15:45:00 Institution: Case Times PACU I FT Pre-Care Text: Identifies barriers to communication and implements measures to provide psychological support Develops individualized plan of care, and ensures continuity of care Maintains patient's dignity and privacy, and maintains patient confidentiality Identifies and reports philosophical, cultural, and spiritual beliefs and values Identifies individual values and wishes concerning care Implements aseptic technique, and administers prescribed antibiotic therapy and immunizing agents as ordered Evaluates postoperative tissue perfusion Implements thermoregulation measures, and monitors body temperature Evaluates postoperative respiratory status Evaluates postoperative cardiac status Evaluates postoperative neurological status Assesses pain control, collaborated in initiating patient-controlled analgesia and implements alternative methods of pain control Verifies allergies, administers prescribed medications and solutions, evaluates response to medications Entry 1 In PACU I 05/30/23 11:45:00 Discharge from PACU 05/30/23 12:40:00 I Outcomes Met? Yes Last Modified By: Anika Alegre RN 05/31/23 07:44:50 Post-Care Text: The patient demonstrates knowledge of the expected response to the operative or invasive procedure The patient's care is consistent with the individualized perioperative plan of care The patient's right to privacy is maintained The patient's value system, lifestyle, ethnicity, and culture are considered, respected, and incorporated into the perioperative plan of care The patient participates in decisions affecting his or her perioperative plan of care The patient is free from signs and symptoms of infection The patient has wound/tissue perfusion consistent with or improved from baseline levels established preoperatively The patient is at or returning to normothermia at the conclusion of the immediate postoperative period The patient's respiratory function is consistent with or improved from baseline levels established preoperatively The patient's cardiovascular status is consistent with or improved from baseline levels established preoperatively The patient's cardiovascular status is consistent with or improved from baseline levels established preoperatively The patient demonstrates and/or reports adequate pain control throughout the perioperative period The patient received appropriate medication(s), safely administered during the perioperative period Acuity Level PACU I FT Entry 1 Start Time 05/30/23 11:45:00 Stop Time 05/30/23 12:40:00 Acuity Level Acuity Level I Last Modified By: Anika Alegre RN 05/31/23 07:45:37 General Comments: 05/31/2023 0745hr Martha-op doc updated. ALESHIA Reaves Finalized By: Anika Alegre RN Document Signatures Signed By: Anika Alegre RN 05/31/23 07:45 Normal [facility] Preoperative Documentson Preoperative Documents [id number] F Normal [facility] Capillary Glucose POCon Glucose [Mass/Vol] 258 mg/dL High 55-99 [facility] Comment on above: Performed By: #### [id number] #### [facility] Laboratory [address] [place] [address] Glucose [Mass/Vol] 152 mg/dL High 55-99 [facility] Comment on above: Result Comment: Huyen gerri Meter Performed By: #### [id number] ####[facility] [id number] [place] [address] Consent for Treatmenton Consent for Treatment [id number] F Normal [facility] Discharge Instructionson Discharge Instructions PARVEEN LEE DOB:1970 Visit Date:05/30/2023 Inpatient Discharge Instructions Your Care Team Admitting Physician - Millie Harrison MD Referring Physician - Millie Harrison MD Reason for Your Visit RIGHT NASAL MASS 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 Discharge Vitals Temperature (Axillary) 36.5 ?C Heart Rate (Monitored) 64 Respiratory Rate 16 Blood Pressure 169/86 What to do next Instructions From Your Doctor Event Name Event Result Discharge Instructions Freetext No strenuous activity Discharge Activity Expect mild pain, Expect minimal amount of drainage and/or bleeding, Activity as tolerated Discharge Diet(s) Regular Call Your Doctor For Persistent or heavy bleeding Discharge Instructions Discharge Instructions New Follow Up Appointments after Discharge Follow Up with Millie Harrison When: In 8 days 06/07/2023 [facility] Where: [address] [place] [address], [address] [place] [phone] Business (1) Medications What How Much When Instructions Next Dose Unchanged atorvastatin (atorvastatin 20 mg Tab) 1 Tablets By Mouth Every day Unchanged buPROPion (buPROPion 150 mg/ 24 hours XL Tab) 1 Tablets By Mouth Every 24 hours Unchanged escitalopram (Lexapro) 10 Milligram By Mouth Every day Unchanged hydrochlorothiazide 12.5 Milligram By Mouth Every day Unchanged insulin detemir (Levemir FlexTouch 100 units/ mL subcutaneous solution) 35 Units Subcutaneous Once a day (at bedtime) Unchanged metformin (metformin 1000 mg Tab) 1 Tablets By Mouth 2 times a day Unchanged venlafaxine (venlafaxine 75 mg Cap-ER) 1 Capsules By Mouth Every day Allergies No Known Allergies Problems Ongoing - Any problem that you are currently receiving treatment for. Diabetes Hypertension Historical - Any problem that you are no longer receiving treatment for. Diabetes mellitus High blood pressure Hyperlipidemia Education Materials [place], [place] DISCHARGE INSTRUCTIONS: NASAL SURGERY DO NOT BLOW YOUR NOSE: You may sniff back ONLY. If your nose begins to bleed, do not become alarmed. Sit down, put your feet up and apply ice to the back of your neck. Use 2 sprays of the nasal decongestant. If the bleeding is very brisk, or does not stop in 5-10 minutes, either call the office or report to the nearest Emergency Department. ACTIVITY: Maintain a low level of activity. You may fatigue easily. Rest frequently and avoid exertion. You may take short walks and drive short distances if you are not taking medication that makes you drowsy. Do not attain any head-down positions for one week. Do not lift or strain for one week. Sleep with head elevated on 2 pillows for one week. DIET: You may resume your normal diet, but a soft diet is best tolerated. DRESSING: Wear a nasal drip pad for the first 2 to 3 days following the surgery. Change the nasal drip pad as needed. Once the drainage slows down wear the pad if needed. MEDICATIONS: Use your medications as prescribed. Use the Nasal Relief Salol (decongestant) 2 sprays each nostril every hours. Use the Nasal Saline Salol 2 sprays each nostril every 2 hours. Use the Hypertonic Saline Irrigation at least 4 times a day. Follow the instructions given in the office for mixing and using the irrigation. POST-OPERATIVE APPOINTMENT: Keep your post-operative appointment. If you do not have one, call the office to make an appointment to be seen in 7-10 days. Call the office with any questions or problems The above information has been explained, I have had the opportunity to have my questions answered, and I have received a copy. ____ ____ Responsible Libertarian Signature Surgeon?s Signature ____ Nurse?s Signature Reviewed: 08/29 Common Emergency Awareness Tips IS IT A STROKE? Act FAST and Check for these signs: FACE Does the face look uneven? ARM Does one arm drift down? SPEECH Does their speech sound strange? TIME Call at any sign of stroke Heart Attack Signs Chest discomfort: Most heart attacks involve discomfort in the center of the chest and lasts more than a few minutes, or goes away and comes back. It can feel like uncomfortable pressure, squeezing, fullness or pain. Discomfort in upper body: Symptoms can include pain or discomfort in one or both arms, back, neck, (more content not included)... Normal [facility] Comment on above: Result Comment: Elec tronically Signed By: Anup MONK, Megan N\.br\Date and Time Signed: 05/30/23 12:41 EST H&P Updateon 05-30-2023 H&P Update [id number] FF Normal [facility] Inpatient Patient Summaryon 05-30-2023 Inpatient Patient Summary [place] [id number] [facility] Clinical Discharge Instructions PERSON INFORMATION Name: PARVEEN LEE [facility]#:[id number] PHYSICIANS Admitting Physician: Millie Harrison MD Attending Physician: Millie Harrison MD PCP: NAYAN GEE DO 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 buPROPion (buPROPion 150 mg/24 hours XL Tab) 1 Tablets By Mouth every 24 hours. escitalopram (Lexapro) 10 Milligram By Mouth every day. hydrochlorothiazide 12.5 Milligram By Mouth every day. insulin detemir (Levemir FlexTouch 100 units/mL subcutaneous solution) 35 Units Subcutaneous once a day (at bedtime). metformin (metformin 1000 mg Tab) 1 Tablets By Mouth 2 times a day. venlafaxine (venlafaxine 75 mg Cap-ER) 1 Capsules By Mouth every day. Comment: Normal [facility] Laboratory - Chemistry and C hemistry - challengeOrdered By: Lab Gayathri on 05-30-2023 Glucose [Mass/Vol] 258 mg/dL High 55 - 99 mg/dL [facility] POC Subsection Sodium [Moles/Vol] [id number] mmol/L Invalid Interpretation Code [facility] POC Subsection Sodium [Moles/Vol] [id number] mmol/L Invalid Interpretation Code [facility] POC Subsection Glucose [Mass/Vol] 152 mg/dL High 55 - 99 mg/dL [facility] POC Subsection Comment on above: Result Comment: Huyen gerri Meter Sodium [Moles/Vol] [id number] mmol/L Invalid Interpretation Code [facility] POC Subsection Sodium [Moles/Vol] [id number] mmol/L Invalid Interpretation Code [facility] POC Subsection Main OR Preoperative Recordo n 05-30-2023 Main OR Preoperative Record PreOp Document Type FT Summary Primary Physician: Millie Harrison MD Finalized Date/Time: 05/30/23 10:15:24 Pt. Name: SUSIPARVEEN/Sex: 1970 Male Med Rec #: [id number] Physician: Millie Harrison MD Financial #: [id number] Pt. Type: A Room/Bed: Admit/Disch: 05/30/23 08:49:01 - Institution: Case Times PreOp FT Pre-Care Text: Verifies consent for planned procedure, identifies individual values and wishes concerning care, includes family members in perioperative teaching Entry 1 Patient Times. In Pre Surgery 05/30/23 08:55:00 Out Pre Surgery 05/30/23 09:38:00 Outcomes Met? Yes Last Modified By: Lyndsay Luis RN 05/30/23 10:15:22 Post-Care Text: The patient participates in decisions affecting his or her perioperative plan of care Finalized By: Lyndsay Luis RN Document Signatures Signed By: Lyndsay Luis RN 05/30/23 10:15 Normal [facility] Monitor Recordon 05-30-2023 Monitor Record [id number] FF Normal [facility] No Panel InformationOrdered By: Tal Trinh on 05-30-2023 POC Username FABIOLA PAEZ Invalid Interpretation Code [facility] POC Subsection POC Username RILEY MARQUEZ Invalid Interpretation Code [facility] POC Subsection Outpatient Surgery Discharge Instructionon 05-30-2023 Outpatient Surgery Discharge Instruction [place] [id number] Patient Discharge Instructions PERSON INFORMATION Name: PARVEEN LEE Date of : 1970 Current Date: 05/30/2023 12:17:49 PHYSICIANS Admitting Physician: Hunter PUCKETT, Millie Osborne 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 PARVEEN LEE has been given the following list of follow-up instructions, prescriptions, and patient education materials: PATIENT FOLLOW-UP INFORMATION Diet: Regular Discharge Activity: Expect mild pain, Expect minimal amount of drainage and/or bleeding, Activity as tolerated Call Your Doctor For: Persistent or heavy bleeding Additional Instructions: No strenuous activity IF UNABLE TO CONTACT YOUR PHYSICIAN AND YOU FEEL IT IS AN EMERGENCY, GO TO THE NEAREST EMERGENCY ROOM OR CALL 911 I, PARVEEN LEE, have received the attached patient education materials/instructions and have verbalized understanding: May we do a follow up call? Yes No I was present when discharge instructions were given Patient Signature Date Clinican/Nurse Signature Date Follow up: With: Address: When: Millie Harrison [address] [place] [address], [address] [place] [phone] Business (1) In 8 days 06/07/2023 Pharmacy Information: You may receive a survey from [facility] asking you to rate your care experience. Your feedback is important and will help us understand what we do well and how we can improve the quality of care we provide to you, your loved ones and our community. It?s an honor to serve you. Thank you for choosing [facility] HERE ARE THE MEDICATION CHANGES THAT OCCURRED DURING YOUR HOSPITAL STAY Medications to Continue with No Changes Other Medications atorvastatin (atorvastatin 20 mg Tab) 1 Tablets By Mouth every day. buPROPion (buPROPion 150 mg/24 hours XL Tab) 1 Tablets By Mouth every 24 hours. escitalopram (Lexapro) 10 Milligram By Mouth every day. hydrochlorothiazide 12.5 Milligram By Mouth every day. insulin detemir (Levemir FlexTouch 100 units/mL subcutaneous solution) 35 Units Subcutaneous once a day (at bedtime). metformin (metformin 1000 mg Tab) 1 Tablets By Mouth 2 times a day. venlafaxine (venlafaxine 75 mg Cap-ER) 1 Capsules By Mouth every day. PATIENT EDUCATION INFORMATION Instructions: Medication Leaflets: Normal [facility] Patient Education - Texton 1 07-30-2022 Patient Education - Text [place], [place], DO DISCHARGE INSTRUCTIONS: NASAL SURGERY DO NOT BLOW YOUR NOSE: 1. You may sniff back ONLY. 2. If your nose begins to bleed, do not become alarmed. Sit down, put your feet up and apply ice to the back of your neck. Use 2 sprays of the nasal decongestant. If the bleeding is very brisk, or does not stop in 5-10 minutes, either call the office or report to the nearest Emergency Department. ACTIVITY: 1. Maintain a low level of activity. You may fatigue easily. Rest frequently and avoid exertion. You may take short walks and drive short distances if you are not taking medication that makes you drowsy. 2. Do not attain any head-down positions for one week. 3. Do not lift or strain for one week. 4. Sleep with head elevated on 2 pillows for one week. DIET: You may resume your normal diet, but a soft diet is best tolerated. DRESSING: Wear a nasal drip pad for the first 2 to 3 days following the surgery. Change the nasal drip pad as needed. Once the drainage slows down wear the pad if needed. MEDICATIONS: Use your medications as prescribed. Use the Nasal Relief Salol (decongestant) 2 sprays each nostril every hours. Use the Nasal Saline Salol 2 sprays each nostril every 2 hours. Use the Hypertonic Saline Irrigation at least 4 times a day. Follow the instructions given in the office for mixing and using the irrigation. POST-OPERATIVE APPOINTMENT: 1. Keep your post-operative appointment. If you do not have one, call the office to make an appointment to be seen in 7-10 days. 2. Call the office with any questions or problems: [phone] ([facility]) The above information has been explained, I have had the opportunity to have my questions answered, and I have received a copy. ____ ____ Responsible Libertarian Signature Surgeon?s Signature ____ Nurse?s Signature Reviewed: 08/29 Normal [facility] Progress Note-Physicianon Progress Note-Physician Patient: PARVEEN LEE Age: 52 years Sex: Male : 1970 Associated Diagnoses: None Author: Quincy Manzano DO Postoperative Information Postoperative disposition: Postoperative disposition: To PACU. Optimetrix number: Optimetrix number [id number]. Anesthetic utilized: General. Health Status Allergies: Allergic Reactions (Selected) No Known Allergies Current medications: (Selected) Inpatient Medications Ordered HYDROmorphone 1 mg/mL injectable solution: 0.4 mg = 0.4 mL, Injection, IV Push, q4min PRN Pain for 5 dose(s), Stop date Limited # of times, Routine, Start date 05/30/23 11:58:00 EST, 05/30/23 11:58:00 EST Lactated Ringers IV Gaby 1000 mL 1,000 mL: 1,000 mL, IV, 100 mL/hr, Routine, Start date 05/30/23 11:58:00 EST, 10 hour(s), Total volume (mL): 1,000, 117.9 kg, 2.43, m2 Lactated Ringers IV Gaby 1000 mL 1,000 mL: 1,000 mL, IV, 150 mL/hr, Routine, Start date 05/30/23 8:00:00 EST, 6.7 hour(s), Total volume (mL): 1,000, 117.9 kg, 2.43, m2 Phenergan 25 mg/mL Injection: 12.5 mg = 0.5 mL, Injection, IV Push, q2min PRN Other (see comment) for 2 dose(s), Stop date Limited # of times, Routine, Start date 05/30/23 11:58:00 EST, 05/30/23 11:58:00 EST Tylenol 325 mg Tab: 650 mg = 2 tab(s), Tab, Oral, q4hr PRN Pain/Fever, Routine, Start date 05/30/23 12:13:00 EST, 05/30/23 12:13:00 EST Zofran 4 mg/2 mL Injection: 4 mg = 2 mL, Injection, IV Push, Once PRN Nausea/Vomiting, Routine, Start date 05/30/23 11:58:00 EST, 05/30/23 11:58:00 EST Documented Medications Documented Levemir FlexTouch 100 units/mL subcutaneous solution: 35 unit(s), SubCutaneous, Once a day (at bedtime), Refills(s) 0, Blood glucose Lexapro: 10 mg, Oral, Daily, Refills(s) 0, Anxiety atorvastatin 20 mg Tab: 20 mg = 1 tab(s), Oral, Daily, Refills(s) 0, High cholesterol buPROPion 150 mg/24 hours XL Tab: 150 mg = 1 tab(s), Oral, q24hr, Refills(s) 0, Depression hydrochlorothiazide: 12.5 mg, Oral, Daily, Refills(s) 0, High blood pressure metformin 1000 mg Tab: 1,000 mg = 1 tab(s), Oral, BID, Refills(s) 0, Blood glucose venlafaxine 75 mg Cap-ER: 75 mg = 1 cap(s), Oral, Daily, Refills(s) 0, Anxiety, Home Medications (7) Active atorvastatin 20 mg Tab 20 mg = 1 tab(s), Oral, Daily buPROPion 150 mg/24 hours XL Tab 150 mg = 1 tab(s), Oral, q24hr hydrochlorothiazide 12.5 mg, Oral, Daily Levemir FlexTouch 100 units/mL subcutaneous solution 35 unit(s), SubCutaneous, Once a day (at bedtime) Lexapro 10 mg, Oral, Daily metformin 1000 mg Tab 1,000 mg = 1 tab(s), Oral, BID venlafaxine 75 mg Cap-ER 75 mg = 1 cap(s), Oral, Daily Problem list: All Problems Diabetes / SNOMED CT 630268084 / Confirmed Hypertension / SNOMED CT 0476587840 / Confirmed Obstructive sleep apnea / SNOMED CT 294809387 / Confirmed Resolved: Diabetes mellitus / SNOMED CT 340779036 Resolved: High blood pressure / SNOMED CT 50385957 Resolved: Hyperlipidemia / SNOMED CT 34139199 Canceled: No Chronic Problems / Cerner NKP Physical Examination Vital Signs 05/30/2023 12:42 EST Heart Rate Monitored Date\Time Correction Respiratory Rate Monitored Date\Time Correction Systolic Blood Pressure Date\Time Correction Diastolic Blood Pressure Date\Time Correction SpO2 96 % 05/30/2023 12:41 EST Heart Rate Monitored In Error bpm (In Error) SpO2 95 % 05/30/2023 12:41 EST Systolic Blood Pressure In Error mmHg (In Error) Diastolic Blood Pressure In Error mmHg (In Error) Blood Pressure Location In Error (In Error) Mean Arterial Pressure, Monitered 114 mmHg 05/30/2023 12:41 EST Respiratory Rate Monitored In Error br/min (In Error) Mean Arterial Pressure, Cuff In Error mmHg (In Error) 05/30/2023 12:40 EST Respiratory Rate 18 br/min 05/30/2023 12:34 EST Heart Rate Monitored 59 bpm LOW (Modified) Respiratory Rate Monitored 10 br/min (Modified) Systolic Blood Pressure 167 mmHg HI (Modified) Diastolic Blood Pressure 93 mmHg HI (Modified) Mean Arterial Pressure, Cuff 118 mmHg SpO2 95 % 05/30/2023 12:23 EST Heart Rate Monitored 64 bpm Respiratory Rate Monitored 16 br/min Systolic Blood Pressure 169 mmHg HI Diastolic Blood Pressure 86 mmHg Mean Arterial Pressure, Cuff 114 mmHg SpO2 90 % 05/30/2023 12:17 EST SpO2 94 % 05/30/2023 12:12 EST Heart Rate Monitored 63 bpm Respiratory Rate Monitored 16 br/min Systolic Blood Pressure 172 mmHg HI Diastolic Blood Pressure 91 mmHg HI Mean Arterial Pressure, Cuff 118 mmHg SpO2 92 % 05/30/2023 12:00 EST Heart Rate Monitored 62 bpm Respiratory Rate Monitored 10 br/min Systolic Blood Pressure 167 mmHg HI Diastolic Blood Pressure 90 mmHg Mean Arterial Pressure, Cuff 116 mmHg SpO2 95 % 05/30/2023 11:55 EST Heart Rate Monitored 62 bpm Respiratory Rate Monitored 11 br/min Systolic Blood Pressure 166 mmHg HI Diastolic Blood Pressure 86 mmHg Mean Arterial Pressure, Cuff 113 mmHg SpO2 96 % 05/30/2023 11:50 EST Heart Rate Monitored 60 bpm Respiratory Rate Monitored 15 br/min Systol (more content not included)... Normal [facility] Comment on above: Result Comment: Elec tronically Signed By: Quincy Manzano DO\.br\Date and Time Signed: 05/30/23 13:13 EST Progress Note-Physician Patient: PARVEEN LEE Age: 52 years Sex: Male : 1970 Associated Diagnoses: None Author: Quincy Manzano DO Preoperative Information Anesthesia history: Patient history: None. Family history+: None. Anesthesia results Informed consent: Signed by patient. Including risks, benefits, and alternatives related to the: Anesthetic plan, Postoperative pain management plan. Re-evaluation prior to induction: Quincy Manzano DO Health Status Allergies: Allergic Reactions (Selected) No Known Allergies, Allergies (1) Active Reaction No Known Allergies None Documented Current medications: (Selected) Inpatient Medications Ordered Lactated Ringers IV Gaby 1000 mL 1,000 mL: 1,000 mL, IV, 150 mL/hr, Routine, Start date 05/30/23 8:00:00 EST, 6.7 hour(s), Total volume (mL): 1,000, 117.9 kg, 2.43, m2 Documented Medications Documented Levemir FlexTouch 100 units/mL subcutaneous solution: 35 unit(s), SubCutaneous, Once a day (at bedtime), Refills(s) 0, Blood glucose Lexapro: 10 mg, Oral, Daily, Refills(s) 0, Anxiety atorvastatin 20 mg Tab: 20 mg = 1 tab(s), Oral, Daily, Refills(s) 0, High cholesterol buPROPion 150 mg/24 hours XL Tab: 150 mg = 1 tab(s), Oral, q24hr, Refills(s) 0, Depression hydrochlorothiazide: 12.5 mg, Oral, Daily, Refills(s) 0, High blood pressure metformin 1000 mg Tab: 1,000 mg = 1 tab(s), Oral, BID, Refills(s) 0, Blood glucose venlafaxine 75 mg Cap-ER: 75 mg = 1 cap(s), Oral, Daily, Refills(s) 0, Anxiety, Home Medications (7) Active atorvastatin 20 mg Tab 20 mg = 1 tab(s), Oral, Daily buPROPion 150 mg/24 hours XL Tab 150 mg = 1 tab(s), Oral, q24hr hydrochlorothiazide 12.5 mg, Oral, Daily Levemir FlexTouch 100 units/mL subcutaneous solution 35 unit(s), SubCutaneous, Once a day (at bedtime) Lexapro 10 mg, Oral, Daily metformin 1000 mg Tab 1,000 mg = 1 tab(s), Oral, BID venlafaxine 75 mg Cap-ER 75 mg = 1 cap(s), Oral, Daily , Medications (1) Active Scheduled: (0) Continuous: (1) Lactated Ringers 1,000 mL 1,000 mL, IV, 150 mL/hr PRN: (0) Problem list: All Problems Diabetes / SNOMED CT 585451633 / Confirmed Hypertension / SNOMED CT 5367996448 / Confirmed Obstructive sleep apnea / SNOMED CT 334668065 / Confirmed Resolved: Diabetes mellitus / SNOMED CT 402205975 Resolved: High blood pressure / SNOMED CT 01939113 Resolved: Hyperlipidemia / SNOMED CT 87156607 Canceled: No Chronic Problems / Cerner NKP, Active Problems (3) Diabetes Hypertension Obstructive sleep apnea Histories Past Medical History: Resolved Diabetes mellitus (515228371): Resolved. High blood pressure (38232822): Resolved. Hyperlipidemia (64276327): Resolved. Family History: No family history items have been selected or recorded. Procedure history: Knee replacement ([id number]) on 10/07/2018 at 48 Years. Hernia ([id number]). Comments: 10/03/2020 17:52 EDT - Charis Martinez many years ago, umbilical Appendectomy (599394447). Pilonidal cyst (6716953356). Social History Social & Psychosocial Habits Alcohol 05/23/2023 Use: Current Type: Beer, Liquor Frequency: 1-2 times per month Substance Abuse Comment: felipa - 10/03/2020 17:50 - CHARIS MARTINEZ CNP Tobacco Comment: felipa - 10/03/2020 17:50 - CHARIS MARTINEZ CNP . Physical Examination Vital Signs 05/30/2023 9:02 EST Heart Rate Monitored 67 bpm Systolic Blood Pressure 169 mmHg HI Diastolic Blood Pressure 82 mmHg Blood Pressure Location Left arm Mean Arterial Pressure, Monitered 111 mmHg 05/30/2023 9:01 EST Heart Rate Monitored 71 bpm SpO2 100 % 05/30/2023 9:01 EST Respiratory Rate 20 br/min 05/30/2023 9:00 EST Temperature Axillary 36.2 DegC 05/30/2023 9:00 EST Systolic Blood Pressure 164 mmHg HI Diastolic Blood Pressure 87 mmHg Blood Pressure Location Right arm Mean Arterial Pressure, Monitered 113 mmHg Vital Signs (last 24 hrs) Last Charted Temp Axillary 36.2 DegC (MAY 30 09:00) SBP H 169mmHg (MAY 30:02) DBP 82 mmHg (MAY 30:02) SpO2 100 % (NOV 09 09:01) Measurements from flowsheet : Measurements 05/30/2023 9:17 EST Height/Length Measured 180 cm Weight Measured 117.9 kg Airway: Mallampati classification: II (soft palate, fauces, uvula visible). Distance: Mentohyoid, Interincisive, Thyromental, Mentosternal, Adequate. HENT: Normocephalic. Respiratory: Lungs are clear to auscultation. Cardiovascular: Regular rhythm. Gastrointestinal: Soft. Review / Management Results review: Lab results 05/30/2023 9:11 EST Glucose Cap 152 mg/dL HI POC Device SN [id number] POC User ID [id number] POC Username ALMARILEY . Plan [place] [employer] (ASA) physical status classification: Class III. Anesthetic Preoperative Plan: Anesthesia General. Normal [facility] Comment on above: Result Comment: Elec tronically Signed By: Quincy Manzano DO.br\Date and Time Signed: 05/30/23 09:26 EST Consent for Procedure/Surger yon 05-27-2023 Consent for Procedure/Surgery [id number] FF Normal [facility] Auto Diffon 05-23-2023 Basophils/100 WBC (Bld) 0.4 % Normal 0.0-2.0 [facility] Comment on above: Order Comment: Order Added by Discern Expert. Performed By: #### 1 [id number], [id number], [id number] #### [facility] [address] [place] [address] Basophils/Leukocytes Auto (Bld) [Pure # fraction] 0.0 E9/L Normal 0.0-0.2 [facility] Comment on above: Order Comment: Order Added by Discern Expert. Performed By: #### 1 [id number], 2972265, [id number] #### [facility] [address] [place] [address] Eosinophils/100 WBC (Bld) 3.2 % Normal 0.0-8.0 [facility] Comment on above: Order Comment: Order Added by Discern Expert. Performed By: #### 1 [id number], [id number], [id number] #### [facility] [address] [place] [address] Eosinophils/Leukocyte s Auto (Bld) [Pure # fraction] 0.3 E9/L Normal 0.0-0.5 [facility] Comment on above: Order Comment: Order Added by Discern Expert. Performed By: #### 1 [id number], 4682561, [id number] #### [facility] [address] [place] [address] Lymphocytes/100 WBC (Bld) 18.9 % Normal 14.0-50.0 [facility] Comment on above: Order Comment: Order Added by Discern Expert. Performed By: #### 1 [id number], 6864896, 9672821 #### [facility] [address] [place] [address] Lymphocytes/Leukocyte s Auto (Bld) [Pure # fraction] 1.6 E9/L Normal 1.0-4.0 [facility] Comment on above: Order Comment: Order Added by Discern Expert. Performed By: #### 1 [id number], 6915658, 4802653 #### [facility] [address] [place] [address] Monocytes/100 WBC (Bld) 6.1 % Normal 4.0-14.0 [facility] Comment on above: Order Comment: Order Added by Discern Expert. Performed By: #### 1 6649987, 3030607, 4491689 #### [facility] [address] [place] [address] Monocytes/Leukocytes Auto (Bld) [Pure # fraction] 0.5 E9/L Normal 0.2-1.0 [facility] Comment on above: Order Comment: Order Added by Discern Expert. Performed By: #### 1 [id number], 5746232, 1847301 #### [facility] [address] [place] [address] Neutrophils/100 WBC (Bld) 71.4 % Normal 36.0-75.0 [facility] Comment on above: Order Comment: Order Added by Discern Expert. Performed By: #### 1 4204972, 0590690, 3081239 #### [facility] [address] [place] [address] Neutrophils/Leukocyte s Auto (Bld) [Pure # fraction] 5.9 E9/L Normal 2.0-7.5 [facility] Comment on above: Order Comment: Order Added by Discern Expert. Performed By: #### 1 8753635, 4842838, [id number] #### [facility] [address] [place] [address] BUNon 05-23-2023 Urea nitrogen [Mass/Vol] 15 mg/dL Normal 5-21 [facility] Comment on above: Performed By: #### 1 [id number], 6962062, 7129276, 8726272, 4459701 ####[facility] [address] [place] [address] CBC w/ Auto Diffon Erythrocyte distribution width (RBC) [Ratio] 14.0 % Normal 10.9-14.2 [facility] Comment on above: Performed By: #### 1 [id number], 9667493, 4037155 #### [facility] [address] [place] [address] Hematocrit (Bld) [Volume fraction] 41.0 % Normal 37.7-49.0 [facility] Comment on above: Performed By: #### 1 3227063, 7723927, 4292607 #### [facility] [address] [place] [address] Hemoglobin (Bld) [Mass/Vol] 14.0 g/dL Normal 13.5-17.5 [facility] Comment on above: Performed By: #### 1 8591760, 5487606, 7425974 #### [facility] [address] [place] [address] MCH (RBC) [Entitic mass] 29.6 pg Normal 27.0-34.0 [facility] Comment on above: Performed By: #### 1 0647082, 1493442, 4739196 #### [facility] [address] [place] [address] MCHC (RBC) [Mass/Vol] 34.1 g/dL Normal 31.4-36.0 [facility] Comment on above: Performed By: #### 1 4135260, 9015717, 8164159 #### [facility] [address] [place] [address] MCV (RBC) [Entitic vol] 86.8 fL Normal 80.0-100.0 [facility] Comment on above: Performed By: #### 1 [id number], 8228533, 1424476 #### [facility] [address] [place] [address] Platelet mean volume (Bld) [Entitic vol] 9.5 fL Normal 6.4-10.8 [facility] Comment on above: Performed By: #### 1 2645521, 7576031, 3756395 #### [facility] [address] [place] [address] Platelets (Bld) [#/Vol] 203.0 E9/L Normal 150.0-500.0 [facility] Comment on above: Performed By: #### 1 1566997, 2931626, 8250641 #### [facility] [address] [place] [address] RBC (Bld) [#/Vol] 4.7 E12/L Normal 4.3-5.9 [facility] Comment on above: Performed By: #### 1 8296516, 4626126, 5813198 #### [facility] [address] [place] [address] WBC corrected for nucl RBC Auto (Bld) [#/Vol] 8.2 E9/L Normal 4.0-11.0 [facility] Comment on above: Performed By: #### 1 [id number], 2986520, 8090708 #### [facility] [address] [place] [address] CHEMISTRYOrdered By: SYSTEM SYSTEM on 05-23-2023 Anion gap [Moles/Vol] 16 mmol/L Normal 6 - 16 mEq/L [facility] Remisol Chloride [Moles/Vol] 102 mmol/L Normal 101 - 1 11 mmol/L [facility] CO2 [Moles/Vol] 27 mmol/L Normal 21 - 31 mmol/L [facility] Creatinine [Mass/Vol] 0.8 mg/dL Normal 0.5 - 1.3 mg/dL [facility] GFR/1.73 sq M.predicted among non-blacks MDRD (S/P/Bld) [Vol rate/Area] 106 mL/min/1.73 m2 Normal >=59mL/min/ 1.73 m2 [facility] Chem S Comment on above: Interpretive Data: C hronic kidney disease could be indicated at eGFR's of less than 60 mL/min/1.73m2. Kidney failure is indicated at less than 15 mL/min/1.73m2. Glucose [Mass/Vol] 183 mg/dL Normal 55 - 199 mg/dL [facility] Potassium [Moles/Vol] 3.6 mmol/L Normal 3.5 - 5.3 mmol/L [facility] Sodium [Moles/Vol] 141 mmol/L Normal 135 - 145 mmol/L [facility] Urea nitrogen [Mass/Vol] 15 mg/dL Normal 5 - 21 mg/dL [facility] COAGULATIONOrdered By: Dot Heart on 05-23-2023 aPTT Coag (PPP) [Time] 30.5 s Normal 25.1 - 36.5 second(s) [facility] Auto Coag Comment on above: Interpretive Data: P arameter 15 days - 4 weeks 1 - 5 months 6 - 11 months 1 - 5 years 6 - 10 years 11 - 17 years PTT Mean: 35.4 (27.6-45.6) Mean: 33.5 (24.8-40.7) Mean: 32.4 (25.1-40.7) Mean: 31.6 (24.0-39.2) Mean: 31.6 (26.9-38.7) Mean: 31.0 (24.6-38.4) Pediatric Reference ranges were obtained from a study by Garcia Garcia et al. prepared from 1437 samples obtained at 7 different centers using the same coagulation reagent and instrumentation as [facility]. Currently there are no coagulation studies available worldwide for children to 14 days, and no normal ranges. Heparin therapeutic range (represented by Anti-Factor Xa activity of 0.2 - 0.4 U/mL) corresponds to PTT of 56.6 - 109.0 sec. INR Coag (PPP) [Relative time] 1.2 {INR} Invalid Interpretation Code [facility] Auto Coag Comment on above: Interpretive Data: I NR results are specifically intended to assess patients stabilized on long-term Anticoagulation therapy suggested INR s Less Intensive Anticoagulation 2.0 3.0 Conventional Range 3.0 4.5 PT Coag (PPP) [Time] 13.3 s High 9.4 - 1 2.5 second(s) [facility] Auto Coag Comment on above: Interpretive Data: 1 5 days - 4 weeks 1 - 5 months 6 -11 months 1 5 years 6 10 years 11 -17 years Mean: 11.2 (9.5 12.6) Mean: 11.0 (9.7 12.8) Mean: 11.0 (9.8 13.0) Mean: 11.3 (9.9 13.4) Mean: 11.7 (10.0 14.6) Mean: 11.8 (10.0 - 14.1) Pediatric Reference ranges were obtained from a study by Garcia Garcia et al. prepared from 1437 samples obtained at 7 different centers using the same coagulation reagent and instrumentation as [facility]. Currently there are no coagulation studies available worldwide for children to 14 days, and no normal ranges. Consent for Treatmenton Consent for Treatment [id number] F Normal [facility] Creatinineon 05-23-2023 Creatinine [Mass/Vol] 0.8 mg/dL Normal 0.5-1.3 [facility] Comment on above: Performed By: #### 1 [id number], 2959084, 6087873, 8516214, 9269137 ####[facility] [address] [place] [address] Glucoseon 05-23-2023 Glucose [Mass/Vol] 183 mg/dL Normal 55-199 [facility] Comment on above: Performed By: #### 1 [id number], 0614455, 8988289, 4775435, 4428223 #### [facility] [address] [place] [address] HEMATOLOGYOrdered By: SYSTEM SYSTEM on 05-23-2023 Basophils/100 WBC (Bld) 0.4 % Normal 0.0 - 2.0 % [facility]eAutoSS Basophils/Leukocytes Auto (Bld) [Pure # fraction] 0.0 E9/L Normal 0.0 - 0.2 E9/L [facility] Eosinophils/100 WBC (Bld) 3.2 % Normal 0.0 - 8.0 % [facility] Eosinophils/Leukocyte s Auto (Bld) [Pure # fraction] 0.3 E9/L Normal 0.0 - 0.5 E9/L [facility] Lymphocytes/100 WBC (Bld) 18.9 % Normal 14.0 - 50.0 % [facility] Lymphocytes/Leukocyte s Auto (Bld) [Pure # fraction] 1.6 E9/L Normal 1.0 - 4.0 E9/L [facility] Monocytes/100 WBC (Bld) 6.1 % Normal 4.0 - 14.0 % [facility]eAuto[facility] Monocytes/Leukocytes Auto (Bld) [Pure # fraction] 0.5 E9/L Normal 0.2 - 1.0 E9/L [facility] Neutrophils/100 WBC (Bld) 71.4 % Normal 36.0 - 75.0 % [facility] Neutrophils/Leukocyte s Auto (Bld) [Pure # fraction] 5.9 E9/L Normal 2.0 - 7.5 E9/L [facility] HEMATOLOGYOrdered By: Noemy Rothman on 05-23-2023 Erythrocyte distribution width (RBC) [Ratio] 14.0 % Normal 10.9 - 14.2 % [facility] Hematocrit (Bld) [Volume fraction] 41.0 % Normal 37.7 - 49.0 % [facility] Hemoglobin (Bld) [Mass/Vol] 14.0 g/dL Normal 13.5 - 17.5 gm/dL [facility] MCH (RBC) [Entitic mass] 29.6 pg Normal 27.0 - 34.0 pg [facility] MCHC (RBC) [Mass/Vol] 34.1 g/dL Normal 31.4 - 36.0 gm/dL [facility] MCV (RBC) [Entitic vol] 86.8 fL Normal 80.0 - 100.0 fL [facility] HemeAutoSS Platelet mean volume (Bld) [Entitic vol] 9.5 fL Normal 6.4 - 10.8 fL [facility] HemeAutoSS Platelets (Bld) [#/Vol] 203.0 E9/L Normal 150.0 - 500.0 E9/L [facility] HemeAutoSS RBC (Bld) [#/Vol] 4.7 E12/L Normal 4.3 - 5.9 E12/L [facility] HemeAutoSS WBC corrected for nucl RBC Auto (Bld) [#/Vol] 8.2 E9/L Normal 4.0 - 11.0 E9/L [facility] HemeAutoSS Lyteson 05-23-2023 Anion gap [Moles/Vol] 16 mmol/L Normal 6-16 [facility] Comment on above: Performed By: #### 1 [id number], 1414601, 0956127, 9446850, 5575945 ####[facility] [address] [place] [address] Chloride [Moles/Vol] 102 mmol/L Normal 101-111 [facility] Comment on above: Performed By: #### 1 6808495, 6138473, 5820573, 8896141, 1180484 ####[facility] [address] [address] CO2 [Moles/Vol] 27 mmol/L Normal 21-31 [facility] Comment on above: Performed By: #### 1 [id number], 6237537, 8361204, 9889499, 0546151 ####[facility] [address] [place] [address] Potassium [Moles/Vol] 3.6 mmol/L Normal 3.5-5.3 [facility] Comment on above: Performed By: #### 1 2357914, 4073107, 3491488, 3363760, 7738637 ####[facility] [address] [place] [address] Sodium [Moles/Vol] 141 mmol/L Normal 135-145 [facility] Comment on above: Performed By: #### 1 [id number], 1815646, 8773031, 7662523, 3443866 ####[facility] [address] [place] [address] PT & PTTon 05-23-2023 aPTT Coag (PPP) [Time] 30.5 second(s) Normal 25.1-36.5 [facility] Comment on above: Result Comment: Para meter 15 days - 4 weeks 1 - 5 months 6 - 11 months 1 - 5 years 6 - 10 years 11 - 17 years PTT Mean: 35.4 (27.6-45.6) Mean: 33.5 (24.8-40.7) Mean: 32.4 (25.1-40.7) Mean: 31.6 (24.0-39.2) Mean: 31.6 (26.9-38.7) Mean: 31.0 (24.6-38.4) Pediatric Reference ranges were obtained from a study by ragini Palumbo al. prepared from 1437 samples obtained at 7 different centers using the same coagulation reagent and instrumentation as [facility]. Currently there are no coagulation studies available worldwide for children to 14 days, and no normal ranges. Heparin therapeutic range (represented by Anti-Factor Xa activity of 0.2 - 0.4 U/mL) corresponds to PTT of 56.6 - 109.0 sec. Performed By: #### 1 [id number], 9766359, 5984267 #### [facility] [address] [place] [address] INR Coag (PPP) [Relative time] 1.2 {INR} Invalid Interpretation Code [facility] Comment on above: Result Comment: INR results are specifically intended to assess patients stabilized on long-term Anticoagulation therapy suggested INR?s ?Less Intensive Anticoagulation? 2.0 ? 3.0 Conventional Range 3.0 ? 4.5 Performed By: #### 1 [id number], 1330725, 5409198 #### [facility] [address] [place] [address] PT Coag (PPP) [Time] 13.3 second(s) High 9.4-12.5 [facility] Comment on above: Result Comment: 15 d ays - 4 weeks 1 - 5 months 6 -11 months 1 ? 5 years 6 ? 10 years 11 -17 years Mean: 11.2 (9.5 ? 12.6) Mean: 11.0 (9.7 ? 12.8) Mean: 11.0 (9.8 ? 13.0) Mean: 11.3 (9.9 ? 13.4) Mean: 11.7 (10.0 ? 14.6) Mean: 11.8 (10.0 - 14.1) Pediatric Reference ranges were obtained from a study by ragini Palumbo al. prepared from 1437 samples obtained at 7 different centers using the same coagulation reagent and instrumentation as [facility]. Currently there are no coagulation studies available worldwide for children to 14 days, and no normal ranges. Performed By: #### 1 [id number], 9954697, 5274033 #### [facility] [address] [place] [address] XR Chest 2 Viewson XR Chest 2 Views Exam Date/Time: 05/23/2023 09:10 EDT Reason for Exam: P.A.T. Report IMPRESSION: NO RADIOGRAPHIC EVIDENCE OF ACUTE INTRATHORACIC PROCESS. EXAMINATION: XR Chest 2 Views HISTORY: Preoperative evaluation TECHNIQUE: Frontal and lateral views of the chest. COMPARISON: None available FINDINGS: Cardiomediastinal silhouette is within normal limits. No pneumothorax, pleural effusion, or consolidation. No acute osseous abnormality. Ordering Provider: Rodriguez Ahmad FINAL REPORT Dictated: 05/23/2023 1:42 pm Sami Menendez DO Signed (Electronic Signature): 05/23/2023 1:42 pm Signed by: Sami Menendez DO Transcribed by: MICK Technologist: THOMAS Technical Comments Radiation Dose: Ka,r in mGy = na DAP = na Normal [facility] eGFRon 05-23-2023 GFR/1.73 sq M.predicted among non-blacks MDRD (S/P/Bld) [Vol rate/Area] 106 mL/min/1.73 m2 Normal >=59 [facility] Comment on above: Order Comment: Order added by Discern Expert. Result Comment: Production Superintendent Hydro tay kidney disease could be indicated at eGFR's of less than 60 mL/min/1.73m2. Kidney failure is indicated at less than 15 mL/min/1.73m2. Performed By: #### 1 [id number] ####[facility] [address] [place] [address] Consent for Procedure/Surger yon 05-16-2023 Consent for Procedure/Surgery [id number]#[id number] [facility] Outside Recordson 05-16-2023 Outside Records [id number]#[id number] [facility] Physician Orderon 05-16-2023 Physician Order [id number]#1.00TI [facility] CHEMISTRYOrdered By: SYSTEM SYSTEM on 01-31-2023 Albumin [Mass/Vol] 3.9 g/dL Normal 3.3 - 5.0 gm/dL [facility] Albumin/Globulin [Mass ratio] 1.1 {ratio} Normal 1.1 - 2.2 [facility] ALP [Catalytic activity/Vol] 47 [iU]/d Normal 21 - 98 Int._Unit/L [facility] ALT No additional P-5'-P [Catalytic activity/Vol] 53 [iU]/d High 6 - 46 Int._Unit/L [facility] Anion gap [Moles/Vol] 12 mmol/L Normal 6 - 16 mEq/L [facility] AST [Catalytic activity/Vol] 51 [iU]/d High 5 - 43 Int._Unit/L [facility] Bilirubin [Mass/Vol] 0.8 mg/dL Normal 0.0 - 1 .1 mg/dL [facility] Calcium [Mass/Vol] 9.2 mg/dL Normal 8.9 - 11. 1 mg/dL [facility] Chloride [Moles/Vol] 102 mmol/L Normal 101 - 1 11 mmol/L [facility] Cholesterol [Mass/Vol] 137 mg/dL Normal 120 - 200 mg/dL [facility] Cholesterol in HDL [Mass/Vol] 35 mg/dL Invalid Interpretation Code [facility] Cholesterol in LDL [Mass/Vol] 66 mg/dL Normal <=129mg/dL [facility] Cholesterol in VLDL [Mass/Vol] 24 mg/dL Normal 7 - 40 mg/dL [facility] CO2 [Moles/Vol] 28 mmol/L Normal 21 - 31 mmol/L [facility] Creatinine [Mass/Vol] 0.9 mg/dL Normal 0.5 - 1.3 mg/dL [facility] GFR/1.73 sq M.predicted among non-blacks MDRD (S/P/Bld) [Vol rate/Area] 103 mL/min/1.73 m2 Normal >=59mL/min/ 1.73 m2 [facility] Chem S Globulin (S) [Mass/Vol] 3.6 g/dL Normal 1.4 - 4.0 gm/dL [facility] Glucose [Mass/Vol] 193 mg/dL Normal 55 - 199 mg/dL [facility] Potassium [Moles/Vol] 3.5 mmol/L Normal 3.5 - 5.3 mmol/L [facility] Protein [Mass/Vol] 7.5 g/dL Normal 6.0 - 7.8 gm/dL [facility] Sodium [Moles/Vol] 138 mmol/L Normal 135 - 145 mmol/L [facility] Triglyceride [Mass/Vol] 118 mg/dL Normal <=149mg/dL [facility] Urea nitrogen [Mass/Vol] 15 mg/dL Normal 5 - 21 mg/dL [facility] Urea nitrogen/Creatinine [Mass ratio] 17 mg/mg Normal 10 - 20 [facility] CHEMISTRYOrdered By: Enoc lott on 01-31-2023 Albumin DL <= 20 mg/L (U) [Mass/Vol] 104.5 microgram/mL High 0.0 - 19.0 mcg/mL [facility] CHEMISTRYOrdered By: Huyen Heart on 01-31-2023 HbA1c (Bld) [Mass fraction] 9.3 % High <=5.9% [facility] Prostate specific Ag [Mass/Vol] 0.4 ng/mL Normal 0.1 - 3.5 ng/mL [facility] HEMATOLOGYOrdered By: SYSTEM SYSTEM on 01-31-2023 Basophils/100 WBC (Bld) 0.6 % Normal 0.0 - 2.0 % [facility] Basophils/Leukocytes Auto (Bld) [Pure # fraction] 0.0 E9/L Normal 0.0 - 0.2 E9/L [facility] Eosinophils/100 WBC (Bld) 3.2 % Normal 0.0 - 8.0 % [facility] Eosinophils/Leukocyte s Auto (Bld) [Pure # fraction] 0.3 E9/L Normal 0.0 - 0.5 E9/L [facility] Lymphocytes/100 WBC (Bld) 21.0 % Normal 14.0 - 50.0 % [facility] Lymphocytes/Leukocyte s Auto (Bld) [Pure # fraction] 1.8 E9/L Normal 1.0 - 4.0 E9/L [facility] Monocytes/100 WBC (Bld) 7.5 % Normal 4.0 - 14.0 % [facility] Monocytes/Leukocytes Auto (Bld) [Pure # fraction] 0.7 E9/L Normal 0.2 - 1.0 E9/L [facility] Neutrophils/100 WBC (Bld) 67.7 % Normal 36.0 - 75.0 % [facility] Neutrophils/Leukocyte s Auto (Bld) [Pure # fraction] 6.0 E9/L Normal 2.0 - 7.5 E9/L [facility] HEMATOLOGYOrdered By: Kelby Hurtado on 01-31-2023 Erythrocyte distribution width (RBC) [Ratio] 14.3 % High 10.9 - 14.2 % [facility] Hematocrit (Bld) [Volume fraction] 40.2 % Normal 37.7 - 49.0 % [facility] Hemoglobin (Bld) [Mass/Vol] 13.7 g/dL Normal 13.5 - 17.5 gm/dL [facility] MCH (RBC) [Entitic mass] 29.3 pg Normal 27.0 - 34.0 pg [facility] MCHC (RBC) [Mass/Vol] 34.1 g/dL Normal 31.4 - 36.0 gm/dL [facility] MCV (RBC) [Entitic vol] 86.0 fL Normal 80.0 - 100.0 fL [facility] Platelet mean volume (Bld) [Entitic vol] 9.0 fL Normal 6.4 - 10.8 fL [facility] Platelets (Bld) [#/Vol] 229.0 E9/L Normal 150.0 - 500.0 E9/L [facility] RBC (Bld) [#/Vol] 4.7 E12/L Normal 4.3 - 5.9 E12/L [facility] WBC corrected for nucl RBC Auto (Bld) [#/Vol] 8.8 E9/L Normal 4.0 - 11.0 E9/L [facility] CBC AUTO DIFFon 12-12-2021 BASO # 0.0 103/ul Normal 0.0-0.1 [facility] Comment on above: Performed By: #### C BC #### [facility] [address] [place] [address] Dr. Arden Hardwick Basophils/100 WBC (Bld) 0.5 % Normal 0.2-2.0 [facility] Comment on above: Performed By: #### C BC #### [facility] [address] [address] [address] Arden Hardwick EO # 0.3 103/ul Normal 0.0-0.7 [facility] Comment on above: Performed By: #### C BC #### [facility] [address] [address] [address] Arden Hardwick Eosinophils/100 WBC (Bld) 3.0 % Normal 0.9-7.0 [facility] Comment on above: Performed By: #### C BC #### [facility] [address] [address] [address] Arden Hardwick Erythrocyte distribution width (RBC) [Ratio] 14.0 % Normal 11.0-15.0 [facility] Comment on above: Performed By: #### C BC #### [facility] [address] [place] [address] Dr. Arden Hardwick Hematocrit (Bld) [Volume fraction] 38.9 % Critically low 42.0-54.0 [facility] Comment on above: Performed By: #### C BC #### [facility] [address] [address] [address] Arden Hardwick Hemoglobin (Bld) [Mass/Vol] 12.8 g/dL Critically low 14.0-18.0 [facility] Comment on above: Performed By: #### C BC #### [facility] [address] [address] [address] Arden Hardwick IG # 0.04 10e3/ul Critically high 0.00-0.03 [facility] Comment on above: Performed By: #### C BC #### [facility] [address] [address] [address] Arden Hardwick IG % 0.5 % Normal 0.0-0.5 [facility] Comment on above: Performed By: #### C BC #### [facility] [address] [place] [address] Dr. Arden Hardwick LYMPH # 1.8 103/ul Normal 1.2-3.8 [facility] Comment on above: Performed By: #### C BC #### [facility] [address] [place] [address] Dr. Arden Hardwick Lymphocytes/100 WBC (Bld) 21.3 % Normal 20.5-60.0 [facility] Comment on above: Performed By: #### C BC #### [facility] [address] [place] [address] Dr. Arden Hardwick MANUAL DIFF REQ NO Normal [facility] Comment on above: Performed By: #### C BC #### [facility] [address] [place] [address] Dr. Arden Hardwick MCH (RBC) [Entitic mass] 29.4 pg Normal 25.9-34.0 [facility] Comment on above: Performed By: #### C BC #### [facility] [address] [place] [address] Dr. Arden Hardwick MCHC (RBC) [Mass/Vol] 32.9 g/dL Normal 29.9-35.2 [facility] Comment on above: Performed By: #### C BC #### [facility] [address] [address] [address] Arden Hardwick MCV (RBC) [Entitic vol] 89.2 fL Normal 80.0-94.0 [facility] Comment on above: Performed By: #### C BC #### [facility] [address] [address] [address] Arden Hardwick MONO # 0.6 103/ul Normal 0.3-0.8 [facility] Comment on above: Performed By: #### C BC #### [facility] [address] [place] [address] Dr. Arden Hardwick Monocytes/100 WBC (Bld) 7.1 % Normal 1.7-12.0 [facility] Comment on above: Performed By: #### C BC #### [facility] [address] [place] [address] Dr. Arden Hardwick NEUT # 5.6 103/ul Normal 1.4-6.5 [facility] Comment on above: Performed By: #### C BC #### [facility] [address] [place] [address] Dr. Arden Hardwick Neutrophils/100 WBC (Bld) 67.6 % Normal 43.0-75.0 [facility] Comment on above: Performed By: #### C BC #### [facility] [address] [place] [address] Dr. Arden Hardwick Platelet mean volume (Bld) [Entitic vol] 10.2 fL Normal 9.5-13.5 [facility] Comment on above: Performed By: #### C BC #### [facility] [address] [place] [address] Dr. Arden Hardwick PLT 204 103/ul Normal 150-450 [facility] Comment on above: Performed By: #### C BC #### [facility] [address] [place], [place] [address] Dr. Arden Hardwick RBC 4.36 106/ul Critically low 4.70-6.10 [facility] Comment on above: Performed By: #### C BC #### [facility] [address] [place], [place] [address] Dr. Arden Hardwick WBC 8.3 103/ul Normal 4.0-11.0 [facility] Comment on above: Performed By: #### C BC #### [facility] [address] [address] [address] Arden Hardwick GLYCOHEMOGLOBIN A1Con 2021 ADA RECOMMENDATION SEE BELOW Normal [facility] Comment on above: Result Comment: ADA RECOMMENDED LIMIT 4.0 - 6.0 ADA THERAPEUTIC TARGET < 7.0 ACTION SUGGESTED > 7.0 Performed By: #### V ITDLC #### [facility] [address] [address] [address] Arden Hardwick Glucose [Mass/Vol] 169 mg/dL Normal [facility] Comment on above: Performed By: #### V ITDLC #### [facility] [address] [place] [address] Dr. Arden Hardwick HbA1c (Bld) [Mass fraction] 7.5 % Critically high 4.5-6.2 [facility] Comment on above: Performed By: #### V ITDLC #### [facility] [address] [place] [address] Dr. Arden Hardwick LIPID PROFILEon 12-12-2021 CHOL-HDL RATIO NORM SEE BELOW Normal [facility] Comment on above: Result Comment: 3.3 - 4.4 LOW RISK 4.4 - 7.1 AVERAGE RISK 7.1 - 11.0 MODERATE RISK >11.0 HIGH RISK Performed By: #### V ITDLC #### [facility] [address] [address] [address] Arden Hardiwck Cholesterol [Mass/Vol] 157 mg/dL Normal <=200 [facility] Comment on above: Performed By: #### V ITDLC #### [facility] [address] [address] [address] Arden Hardwick Cholesterol in HDL [Mass/Vol] 43 mg/dL Normal 40-60 [facility] Comment on above: Performed By: #### V ITDLC #### [facility] [address] [address] [address] Arden Hardwick Cholesterol in LDL [Mass/Vol] 71.8 mg/dL Normal [facility] Comment on above: Performed By: #### V ITDLC #### [facility] [address] [address] [address] Arden Hardwick Cholesterol.total/Cho lesterol in HDL [Mass ratio] 3.7 {ratio} Normal [facility] Comment on above: Performed By: #### V ITDLC #### [facility] [address] [address] [address] Arden Hardwick HDL NORMAL > or = 60 mg/dl - LO W CARDIOVASCULAR RISK <40 mg/dl - HIGH CARDIOVASCULAR RISK Normal [facility] Comment on above: Performed By: #### V ITDLC #### [facility] [address] [place] [address] Dr. Arden Hardwick LDL CALC NORMAL SEE BELOW Normal [facility] Comment on above: Result Comment: <100 mg/dl OPTIMAL 100 - 129 mg/dl NEAR OR ABOVE OPTIMAL 130 - 159 mg/dl BORDERLINE HIGH 160 - 189 mg/dl HIGH >190 mg/dl VERY HIGH Performed By: #### V ITDLC #### [facility] [address] [place] [address] Dr. Arden Hardwick Triglyceride [Mass/Vol] 211 mg/dL Critically high <=150 [facility] Comment on above: Performed By: #### V ITDLC #### [facility] [address] [place] [address] Dr. Arden Hardwick VLDL CALC 42.2 mg/dL Normal [facility] Comment on above: Performed By: #### V ITDLC #### [facility] [address] [place] [address] Dr. Arden Hardwick MICROALBUMIN, RAND URon 11-20 mALB 1.3 mg/L Normal <=30.0 [facility] Comment on above: Performed By: #### M ALBR #### [facility] [address] [place] [address] Dr. Arden Hardwick PROF 14(COMP METB)on 022 Albumin [Mass/Vol] 3.7 g/dL Normal 3.4-5.0 [facility] Comment on above: Performed By: #### V ITDLC #### [facility] [address] [place] [address] Dr. Arden Hardwick Albumin/Globulin [Mass ratio] 0.8 {ratio} Normal [facility] Comment on above: Performed By: #### V ITDLC #### [facility] [address] [address] [address] Arden Hardwick ALP [Catalytic activity/Vol] 45 U/L Critically low 46-116 [facility] Comment on above: Performed By: #### V ITDLC #### [facility] [address] [place] [address] Dr. Arden Hardwick ALT [Catalytic activity/Vol] 63 U/L Normal 16-63 [facility] Comment on above: Performed By: #### V ITDLC #### [facility] [address] [place] [address] Dr. Arden Hardwick Anion gap [Moles/Vol] 13.9 mmol/L Normal [facility] Comment on above: Performed By: #### V ITDLC #### [facility] [address] [place] [address] Dr. Arden Hardwick AST [Catalytic activity/Vol] 33 U/L Normal 15-37 [facility] Comment on above: Performed By: #### V ITDLC #### [facility] [address] [place] [address] Dr. Arden Hardwick Bilirubin [Mass/Vol] 0.5 mg/dL Normal 0.2-1.0 [facility] Comment on above: Performed By: #### V ITDLC #### [facility] [address] [place] [address] Dr. Arden Hradwick Calcium [Mass/Vol] 9.4 mg/dL Normal 8.5-10.1 [facility] Comment on above: Performed By: #### V ITDLC #### [facility] [address] [place] [address] Dr. Arden Hardwick Chloride [Moles/Vol] 101 mmol/L Normal 98-107 [facility] Comment on above: Performed By: #### V ITDLC #### [facility] [address] [place] [address] Dr. Arden Hardwick CO2 [Moles/Vol] 29.1 mmol/L Normal 21.0-32.0 [facility] Comment on above: Performed By: #### V ITDLC #### [facility] [address] [place] [address] Dr. Arden Hardwick Creatinine [Mass/Vol] 0.76 mg/dL Normal 0.70-1.30 [facility] Comment on above: Performed By: #### V ITDLC #### [facility] [address] [place] [address] Dr. Arden Hardwick EGFR-AF ETHIOPIAN >60 Normal >=60 [facility] Comment on above: Performed By: #### V ITDLC #### [facility] [address] [place] [address] Dr. Arden Hardwick EGFR-NON AF ETHIOPIAN >60 Normal >=60 [facility] Comment on above: Performed By: #### V ITDLC #### [facility] [address] [place] [address] Dr. Arden Hardwick Globulin (S) [Mass/Vol] 4.5 g/dL Normal [facility] Comment on above: Performed By: #### V ITDLC #### [facility] [address] [place] [address] Dr. Arden Hardwick Glucose [Mass/Vol] 178 mg/dL Critically high 74-106 [facility] Comment on above: Performed By: #### V ITDLC #### [facility] [address] [place] [address] Dr. Arden Hardwick Potassium [Moles/Vol] 4.0 mmol/L Normal 3.5-5.1 [facility] Comment on above: Performed By: #### V ITDLC #### [facility] [address] [place] [address] Dr. Arden Hardwick Protein [Mass/Vol] 8.2 g/dL Normal 6.4-8.2 [facility] Comment on above: Performed By: #### V ITDLC #### [facility] [address] [place] [address] Dr. Arden Hardwick Sodium [Moles/Vol] 140 mmol/L Normal 136-145 [facility] Comment on above: Performed By: #### V ITDLC #### [facility] [address] [place] [address] Dr. Arden Hardwick Urea nitrogen [Mass/Vol] 22.0 mg/dL Critically high 7.0-18.0 [facility] Comment on above: Performed By: #### V ITDLC #### [facility] [address] [place] [address] Dr. Arden Hardwick Urea nitrogen/Creatinine [Mass ratio] 28.9 mg/mg Normal [facility] Comment on above: Performed By: #### V ITDLC #### [facility] [address] [place] [address] Dr. Arden Hardwick 25-HYDROXY VIT D (D2+D3 FRAC ) LC/MS-MSon 09-01-2021 25-Hydroxy, Vitamin D 10 ng/mL Critically low [facility] Comment on above: Result Comment: Refe rence Range: All Ages: Target levels 30 - 100 Performed By: #### V ITDLC #### [facility] [address] [place] [address] Dr. Arden Hardwick 25-Hydroxy, Vitamin D-2 <1.0 Normal [facility] Comment on above: Result Comment: This test was developed and its performance characteristics determined by [facility]. It has not been cleared or approved by the Food and Drug Administration. Performed By: #### V ITDLC #### [facility] [address] [place] [address] Dr. Arden Hardwick 25-Hydroxy, Vitamin D-3 10 ng/mL Normal [facility] Comment on above: Result Comment: This test was developed and its performance characteristics determined by [facility]. It has not been cleared or approved by the Food and Drug Administration. Performed By: #### V ITDLC #### [facility] [address] [place] [address] Dr. Arden Hardwick T3, TOTAL (TRIIODOTHYRONINE) on 08-22-2021 T3, TOTAL 124 ng/dL Normal 71-180 [facility] Comment on above: Performed By: #### T 3TOTAL #### [facility] [address] [address] [address] Arden Hardwick CBC AUTO DIFFon 08-21-2021 BASO # 0.0 103/ul Normal 0.0-0.1 [facility] Comment on above: Performed By: #### C BC #### [facility] [address] [address] [address] Arden Hardwick Basophils/100 WBC (Bld) 0.5 % Normal 0.2-2.0 [facility] Comment on above: Performed By: #### C BC #### [facility] [address] [place] [address] Dr. Arden Hardwick EO # 0.2 103/ul Normal 0.0-0.7 [facility] Comment on above: Performed By: #### C BC #### [facility] [address] [place] [address] Dr. Arden Hardwick Eosinophils/100 WBC (Bld) 2.6 % Normal 0.9-7.0 [facility] Comment on above: Performed By: #### C BC #### [facility] [address] [place] [address] Dr. Arden Hardwick Erythrocyte distribution width (RBC) [Ratio] 13.9 % Normal 11.0-15.0 [facility] Comment on above: Performed By: #### C BC #### [facility] [address] [place] [address] Dr. Arden Hardwick Hematocrit (Bld) [Volume fraction] 41.2 % Critically low 42.0-54.0 [facility] Comment on above: Performed By: #### C BC #### [facility] [address] [place] [address] Dr. Arden Hardwick Hemoglobin (Bld) [Mass/Vol] 13.7 g/dL Critically low 14.0-18.0 [facility] Comment on above: Performed By: #### C BC #### [facility] [address] [place] [address] Dr. Arden Hardwick IG # 0.02 10e3/ul Normal 0.00-0.03 [facility] Comment on above: Performed By: #### C BC #### [facility] [address] [place] [address] Dr. Arden Hardwick IG % 0.3 % Normal 0.0-0.5 [facility] Comment on above: Performed By: #### C BC #### [facility] [address] [place] [address] Dr. Arden Hardwick LYMPH # 1.7 103/ul Normal 1.2-3.8 [facility] Comment on above: Performed By: #### C BC #### [facility] [address] [place] [address] Dr. Arden Hardwick Lymphocytes/100 WBC (Bld) 22.5 % Normal 20.5-60.0 [facility] Comment on above: Performed By: #### C BC #### [facility] [address] [place] [address] Dr. Arden Hardwick MANUAL DIFF REQ NO Normal [facility] Comment on above: Performed By: #### C BC #### [facility] [address] [place] [address] Dr. Arden Hardwick MCH (RBC) [Entitic mass] 29.1 pg Normal 25.9-34.0 [facility] Comment on above: Performed By: #### C BC #### [facility] [address] [place] [address] Dr. Arden Hardwick MCHC (RBC) [Mass/Vol] 33.3 g/dL Normal 29.9-35.2 [facility] Comment on above: Performed By: #### C BC #### [facility] [address] [place] [address] Dr. Arden Hardwick MCV (RBC) [Entitic vol] 87.5 fL Normal 80.0-94.0 [facility] Comment on above: Performed By: #### C BC #### [facility] [address] [place] [address] Dr. Arden Hardwick MONO # 0.6 103/ul Normal 0.3-0.8 [facility] Comment on above: Performed By: #### C BC #### [facility] [address] [place] [address] Dr. Arden Hardwick Monocytes/100 WBC (Bld) 8.1 % Normal 1.7-12.0 [facility] Comment on above: Performed By: #### C BC #### [facility] [address] [place] [address] Dr. Arden Hardwick NEUT # 4.9 103/ul Normal 1.4-6.5 [facility] Comment on above: Performed By: #### C BC #### [facility] [address] [place] [address] Dr. Arden Hardwick Neutrophils/100 WBC (Bld) 66.0 % Normal 43.0-75.0 [facility] Comment on above: Performed By: #### C BC #### [facility] [address] [place] [address] Dr. Arden Hardwick Platelet mean volume (Bld) [Entitic vol] 10.3 fL Normal 9.5-13.5 [facility] Comment on above: Performed By: #### C BC #### [facility] [address] [place] [address] Dr. Arden Hardwick PLT 227 103/ul Normal 150-450 [facility] Comment on above: Performed By: #### C BC #### [facility] [address] [place] [address] Dr. Arden Hardwick RBC 4.71 106/ul Normal 4.70-6.10 [facility] Comment on above: Performed By: #### C BC #### [facility] [address] [place] [address] Dr. Arden Hardwick WBC 7.4 103/ul Normal 4.0-11.0 [facility] Comment on above: Performed By: #### C BC #### [facility] [address] [place] [address] Dr. Arden Hardwick FREE T4on 08-21-2021 Free T4 [Mass/Vol] 0.90 ng/dL Normal 0.78-2.19 [facility] Comment on above: Performed By: #### V ITAD, FT4 #### [facility] [address] [place] [address] Dr. Arden Hardwick PROF 14(COMP METB)on 022 Albumin [Mass/Vol] 3.8 g/dL Normal 3.5-5.0 [facility] Comment on above: Performed By: #### T 4, TSH, CMP, T3UP #### [facility] [address] [place] [address] Dr. Arden Hardwick Albumin/Globulin [Mass ratio] 0.8 {ratio} Normal [facility] Comment on above: Performed By: #### T 4, TSH, CMP, T3UP #### [facility] [address] [place] [address] Dr. Arden Hardwick ALP [Catalytic activity/Vol] 58 U/L Normal 38-126 [facility] Comment on above: Performed By: #### T 4, TSH, CMP, T3UP #### [facility] [address] [place] [address] Dr. Arden Hardwick ALT [Catalytic activity/Vol] 61 U/L Normal 21-72 [facility] Comment on above: Performed By: #### T 4, TSH, CMP, T3UP #### [facility] [address] [place] [address] Dr. Arden Hardwick Anion gap [Moles/Vol] 12.2 mmol/L Normal [facility] Comment on above: Performed By: #### T 4, TSH, CMP, T3UP #### [facility] [address] [place] [address] Dr. Arden Hardwick AST [Catalytic activity/Vol] 31 U/L Normal 17-59 [facility] Comment on above: Performed By: #### T 4, TSH, CMP, T3UP #### [facility] [address] [place] [address] Dr. Arden Hardwick Bilirubin [Mass/Vol] 0.4 mg/dL Normal 0.2-1.3 [facility] Comment on above: Performed By: #### T 4, TSH, CMP, T3UP #### [facility] [address] [place] [address] Dr. Arden Hardwick Calcium [Mass/Vol] 9.7 mg/dL Normal 8.4-10.2 [facility] Comment on above: Performed By: #### T 4, TSH, CMP, T3UP #### [facility] [address] [address] [address] Arden Hardiwck Chloride [Moles/Vol] 101 mmol/L Normal 98-107 [facility] Comment on above: Performed By: #### T 4, TSH, CMP, T3UP #### [facility] [address] [address] [address] Arden Hardwick CO2 [Moles/Vol] 28.7 mmol/L Normal 22.0-30.0 [facility] Comment on above: Performed By: #### T 4, TSH, CMP, T3UP #### [facility] [address] [place] [address] Dr. Arden Hardwick Creatinine [Mass/Vol] 0.79 mg/dL Normal 0.66-1.25 [facility] Comment on above: Performed By: #### T 4, TSH, CMP, T3UP #### [facility] [address] [place] [address] Dr. Arden Hardwick EGFR-AF ETHIOPIAN >60 Normal >=60 [facility] Comment on above: Performed By: #### T 4, TSH, CMP, T3UP #### [facility] [address] [place] [address] Dr. Arden Hardwick EGFR-NON AF ETHIOPIAN >60 Normal >=60 [facility] Comment on above: Performed By: #### T 4, TSH, CMP, T3UP #### [facility] [address] [address] [address] Arden Hardwick Globulin (S) [Mass/Vol] 4.6 g/dL Normal [facility] Comment on above: Performed By: #### T 4, TSH, CMP, T3UP #### [facility] [address] [address] [address] Arden Hardwick Glucose [Mass/Vol] 242 mg/dL Critically high 74-106 [facility] Comment on above: Performed By: #### T 4, TSH, CMP, T3UP #### [facility] [address] [place] [address] Dr. Arden Hardwick Potassium [Moles/Vol] 3.9 mmol/L Normal 3.4-5.0 [facility] Comment on above: Performed By: #### T 4, TSH, CMP, T3UP #### [facility] [address] [place] [address] Dr. Arden Hardwick Protein [Mass/Vol] 8.4 g/dL Critically high 6.1-8.2 [facility] Comment on above: Performed By: #### T 4, TSH, CMP, T3UP #### [facility] [address] [place] [address] Dr. Arden Hardwick Sodium [Moles/Vol] 138 mmol/L Normal 137-145 [facility] Comment on above: Performed By: #### T 4, TSH, CMP, T3UP #### [facility] [address] [place] [address] Dr. Arden Hardwick Urea nitrogen [Mass/Vol] 18.0 mg/dL Normal 9.0-20.0 [facility] Comment on above: Performed By: #### T 4, TSH, CMP, T3UP #### [facility] [address] [place] [address] Dr. Arden Hardwick Urea nitrogen/Creatinine [Mass ratio] 22.8 mg/mg Normal [facility] Comment on above: Performed By: #### T 4, TSH, CMP, T3UP #### [facility] [address] [place] [address] Dr. Arden Hardwick T3 UPTAKEon 08-21-2021 T3U 34.0 % Normal 23.5-40.5 [facility] Comment on above: Performed By: #### T 4, TSH, CMP, T3UP #### [facility] [address] [place] [address] Dr. Arden Hardwick T4on 08-21-2021 T4 [Mass/Vol] 7.90 ug/dL Normal 5.53-11.00 [facility] Comment on above: Performed By: #### V ITDLC #### [facility] [address] [address] [address] Arden Hardwick TSHon 08-21-2021 TSH 1.388 uIU/mL Normal 0.470-4.680 [facility] Comment on above: Performed By: #### V ITDLC #### [facility] [address] [place] [address] Dr. Arden Hardwick TSH RANGE SEE BELOW Normal [facility] Comment on above: Result Comment: <0.3 4 UIU/ml HYPERTHYROID 0.34-5.60 UIU/ml EUTHYROID >5.60 UIU/ml HYPOTHYROID Performed By: #### V ITDLC #### [facility] [address] [place] [address] Dr. Arden Hardwick VITAMIN D 25 OHon 08-21-2021 VIT D 25-OH 12.7 ng/mL Normal [facility] Comment on above: Performed By: #### V ITAD, FT4 #### [facility] [address] [place] [address] Dr. Arden Hardwick VIT D RANGES SEE BELOW Normal [facility] Comment on above: Result Comment: <20 ng/mL Vit D deficient 20 - <30 ng/mL Vit D insufficient 30 - 100 ng/mL Vit D sufficient >100 ng/mL Potential Toxicity Performed By: #### V ITAD, FT4 #### [facility] [address] [place] [address] Dr. Arden Hardwick GLYCOHEMOGLOBIN A1Con 2021 ADA RECOMMENDATION ADA THERAPEUTIC TARG ET 6.0 - 7.0 ACTION SUGGESTED > 7.0 [facility] Comment on above: Performed By: #### A 1C #### [facility] [address] [place] [address] Dr. Arden Hardwick Glucose [Mass/Vol] 177 mg/dL Normal [facility] Comment on above: Performed By: #### A 1C #### [facility] [address] [place] [address] Dr. Arden Hardwick HbA1c (Bld) [Mass fraction] 7.8 % Critically high <=6.0 [facility] Comment on above: Performed By: #### A 1C #### [facility] [address] [place], [place] [address] Dr. Arden Hardwick Glucose Poct Glucometerson 0 11-18-2020 Glucose [Mass/Vol] 127 mg/dL Normal [facility] Comment on above: Result Comment: [place] Glucose Reference Range is dependent on time and content of last meal. Glucose of more than 200 mg/dL in a nonstressed, ambulatory subject supports the diagnosis of Diabetes Mellitus. PERFORMED BY: [place] [address] [place] [address] PATHOLOGIST IT ENGINEER DAWOOD NGUYỄN M.D. Performed By: #### G SARAY #### Point of Care testing , COVID-19 Antigenon 1 COVID-19 Antigen Healthcare Worker?: N Zaida Reference Zaida Reference Negative SARS-CoV+SARS-CoV-2 (COVID-19) Ag [Presence] in Respiratory specimen by Rapid immunoassay Negative for SARS Antigen by DAVIDA COVID19 Blank Space ------ Zaida Disclaimer Negative results, from patients with symptom Zaida Disclaimer onset beyond five days, should be treated as Zaida Disclaimer presumptive and confirmation with a molecular Zaida Disclaimer assay, if necessary, for patient management, Zaida Disclaimer may be performed. Negative results do not rule Zaida Disclaimer out COVID-19 and should not be used as the sole Zaida Disclaimer basis for treatment or patient management Zaida Disclaimer decisions, including infection control decisions. Zaida Disclaimer Negative results should be considered in the Zaida Disclaimer context of a patient's recent exposures, history Zaida Disclaimer and the presence of clinical signs and symptoms Zaida Disclaimer consistent with COVID-19. COVID19 Blank Space ------ Zaida Disclaimer The Zaida SARS Antigen DAVIDA does not differentiate Zaida Disclaimer between SARS-CoV and SARS-CoV-2. COVID19 Blank Space ------ Zaida Disclaimer This test was developed and its performance Zaida Disclaimer characteristic determined by [employer] and Zaida Disclaimer validated at [facility]. This Zaida Disclaimer test has not been FDA cleared or approved. This Zaida Disclaimer test has been authorized by FDA under an Emergency Use Zaida Disclaimer Authorization (EUA). This test has been validated Zaida Disclaimer in accordance with the FDA's Guidance Document (Policy Zaida Disclaimer for Diagnostics Testing in Laboratories Certified to Zaida Disclaimer Perform High Complexity Testing under CLIA prior to Zaida Disclaimer Emergency Use Authorization for Coronavirus Zaida Disclaimer iseas during the Public Health Emergency) Zaida Disclaimer issued on October 22, 2019. This test is only authorized Zaida Disclaimer for the duration of time the declaration that Zaida Disclaimer circumstances exist justifying the authorization of Zaida Disclaimer the emergency use of in vitro diagnostic tests for Zaida Disclaimer detection of SARS-CoV-2 virus and/or diagnosis of Zaida Disclaimer COVID-19 infection under section 564(b)(1) of the Zaida Disclaimer Act, 21 U.S.C. 360bbb-3(b)(1), unless the Zaida Disclaimer authorization is terminated or revoked sooner. PERFORMED BY: [facility] [address] [place] [address] PATHOLOGIST IT ENGINEER DAWOOD NGUYỄN M.D. [facility] Comment on above: Performed By: #### S PATRICK COVID-19 ZAIDA #### [facility] [address] Zaida Ag Negativeon 11-17-19 21 Zaida Ag Negative Negative Normal Negative [facility] Comment on above: Result Comment: This is a duplicate Zaida SARS Antigen (DAVIDA) result to be used for statistical tracking purpose only. PERFORMED BY: [facility] [address] [place] [address] PATHOLOGIST IT ENGINEER DAWOOD NGUYỄN M.D. Performed By: #### S OFEVER, COVID-19 ZAIDA #### [facility] [address] Admission Risk Screen - Adul ton 03-09-2020 Admission Risk Screen - Adult Allergies: Allergies: No Known Allergies: Patient Verification: New W ID Band Applied in my Departmentyes Patient Identity Verified Bypatient ID Band FULL Name, include Middle, spelling matches patient's ID used for verificationyes ID Band Matches Patient ID used for Verficationyes ID Band MRN Matches EMR MRNyes Visitor Restriction: Coronavirus Visitor Restriction: Reasonable restrictions to in-person visitors will be observed due to current coronavirus pandemic. Travel History: COVID-19 Screening Completedno exposure or symptoms(1) Advance Directive: Advance Directive/DNRno (2) Advance Directive Information Givenpatient/family declined [place] Fall Screen: History of falling (immediate or previous)no (0) Secondary Diagnosisyes (15) Intravenous Therapy/ Heparin/Saline Lockyes (20) Gait/Transferringnormal/ bedrest/wheelchair (0) Ambulatory Aidsnone/bedrest/nurse assist (0) Mental Statusoriented to own ability (0) Score: Low risk (<25). Moderate risk (25-44). High risk (>44).35 [place] InterventionsMODERATE INTERVENTIONS: *Low Interventions Plus: * falls risk band/sticker applied to patient, *yellow non-skid footwear, *instruct to call for assistance before getting out of bed, *bed/chair/bedside commode/toilet alarms, *sensory devices/ambulatory aides available and in reach, *medications reviewed for potential side effects and care planning. Family Violence Screen: Are you or have you been threatened or abused physically, emotionally, or sexually by anyoneno Has anyone ever threatened to hurt your family or your petsno Does anyone try to keep you from having/contacting other friends or doing things outside your homeno Do you feel UNSAFE going back to the place where you are livingno Do you feel anyone has exploited or taken advantage of you financially or of your personal propertyno Clinical assessment: Are there any apparent signs of injuries/behaviors that could be related to abuse/neglectno Social Service Consult for abuse/neglect needed this visitno Functional Screen: Functional Screen: In the recent/past 2-4 weeks, patient or family have noticedno issues that require a speech/language consult at this time AM-[facility]- Basic Mobility/Daily Activity: Patient baseline bedboundno Turning from your back to your side while in a flat bed without using bedrailsnone Moving from lying on your back to sitting on the side of a flat bed without using bedrailsnone Moving to and from bed to chair (including a wheelchair)none Standing up from a chair using your arms (e.g. wheelchair or bedside chair) none To walk in hospital roomnone Climbing 3-5 steps with railingnone AM-[facility] Basic Mobility- Total Score24 Putting on and taking off regular lower body clothingnone Bathing (including washing, rinsing, drying)none Putting on and taking off regular upper body clothingnone Toileting, which includes using toilet, bedpan or urinalnone Taking care of personal grooming such as brushing teethnone Eating Mealsnone AM-[facility] Daily Activity- Total Score24 Learning Assessment (Patient): Patient is Able to be Assessed for Learningyes Factors Influencing Readiness to Learnacuteness of illness Factors that Impact Ability to Learnnone Devices/Methods Used to Communicateglasses Learning Preferencesverbal instruction; skill demonstration; written material Cultural Considerationsnone Developmental Considerationsnone Sabianism Considerationsnone Other Learnersspouse Learning Assessment (Other Learner): Other learner availableno Suicide/Depression Screen: During the past month, have you often been bothered by feeling down, depressed or hopelessno During the past month, have you often had little interest or pleasure in doing thingsno Have you had any thoughts of harming yourselfno Have you had any thoughts of harming anyone elseno (1) Adult Nutrition Screen: Have you recently lost weight without tryingno Have you been eating poorly because of a decreased appetiteno Malnutrition Screening Tool Score0 Malnutrition Screening Tool RiskMST = 0 or 1 Not at risk. Eating well with little or no weight loss Nutrition Consult needed this visitno Can Patient Participate in Room Serviceyes Patient requires Paper Dishes/Plastic Utensilsno Pain Screen: Pain Scalenumerical 0-10 Pain Scale Educationteaching provided Current Pain Level3 = Mild Acceptable Pain Level0 = None Expression of Pain (nonverbal)none Lifestyle Changes/Adaptations in Response to Painno change Barriers to Reporting Painnone Chronic Painno Spiritual Screen: Are there any cultural, spiritual, pentecostalism practices/values/needs that are important for us to knowno Do you want a visit/item from Past[facility] Would you like your Otc Clerk/Security Flex Utility Officer notifiedno CAGE: Is this an injured patient at a Trauma Center ([facility]/[place] /[place]): no (2) Vaccinations: Vaccination - Influenza Vaccination Screen: Is it flu season (between and November 01)No Vaccination - Pneumonia Vaccination Screen: Patient has received a previous pneumonia vaccine:no/unknown... Immunocompetent persons with underlying chronic conditions or reside in correction care facilitiesnone of these conditions Persons with Functional or Anatomic Asplenianone of these conditions Immunocompromised Personsnone of these conditions Pneumonia vaccine NOT indicated due to:patient DOES NOT have a condition that indicates vaccination patient/caregiver refusal at this time Santosh: Skin - Santosh Scale: Santosh: Sensory Perception (response to environment)(4) no impairment Santosh: Moisture (degree skin exposed to moisture)(4) rarely moist Santosh: Activity (ability to walk)(4) walks frequently Santosh: Mobility (amount/control of body movement)(4) no limitation Santosh: Nutrition (quality of food intake)(4) excellent Santosh: Friction and Shear(3) no apparent problem Santosh: Score23 Significant Indicatiors: Significant Indicators: Complete Pressure Injury: Pressure Injury Present on Admissionno Electronic Signatures: Raiza Johnson (ALESHIA) (Signed 08-Mar-2020 23:11) Authored: Admission Risk Screens, Vaccinations, Santosh, Pressure Injury Last Updated: 08-Mar-2020 23:11 by Raiza Johnson (ALESHIA) References: 1. Data Referenced From Triage - ED 08-Mar-2020 15:25 2. Data Referenced From Risk Screen - Adult Emergency 08-Mar-2020 15:30 Normal [facility] BASIC METABOLIC PANELon 08- Anion gap [Moles/Vol] 11 mmol/L Normal 10 - 20 [facility] Comment on above: Performed By: #### B MP ####[address] [place] [address] Calcium [Mass/Vol] 8.8 mg/dL Normal 8.6 - 10.3 [facility] Comment on above: Performed By: #### B MP ####[address] [place] [address] Chloride [Moles/Vol] 104 mmol/L Normal 98 - 107 [facility] Comment on above: Performed By: #### B MP ####[address] [place] [address] Creatinine [Mass/Vol] 0.70 mg/dL Normal 0.50 - 1.30 [facility] Comment on above: Performed By: #### B MP ####[address] [place] [address] GFR- AM. >60 Normal >60 [facility] Comment on above: Result Comment: CALC ULATIONS OF ESTIMATED GFR ARE PERFORMED USING THE MDRD STUDY EQUATION FOR THE IDMS-TRACEABLE CREATININE METHODS. CLIN CHEM 2007;53:766-72 Performed By: #### B MP ####[address] [place] [address] GFR-NON AM. >60 Normal >60 [facility] Comment on above: Performed By: #### B MP ####[address] [place] [address] Glucose [Mass/Vol] 106 mg/dL High 74 - 99 [facility] Comment on above: Performed By: #### B MP ####[address] [place] [address] HCO3 (Bld) [Moles/Vol] 29 mmol/L Normal 21 - 32 [facility] Comment on above: Performed By: #### B MP ####[address] [place] [address] Potassium [Moles/Vol] 3.6 mmol/L Normal 3.5 - 5.3 [facility] Comment on above: Performed By: #### B MP ####[address] [address] Sodium [Moles/Vol] 140 mmol/L Normal 136 - 145 [facility] Comment on above: Performed By: #### B MP ####[facility] [place] [address] Urea nitrogen [Mass/Vol] 14 mg/dL Normal 6 - 23 [facility] Comment on above: Performed By: #### B MP ####[address] [address] CBCon 03-09-2020 Erythrocyte distribution width (RBC) [Ratio] 14.1 % Normal 11.5 - 14.5 [facility] Comment on above: Performed By: #### C BC ####[address] [address] Hematocrit (Bld) [Volume fraction] 38.1 % Low 41.0 - 52.0 [facility] Comment on above: Performed By: #### C BC ####[address] [address] Hemoglobin (Bld) [Mass/Vol] 12.3 g/dL Low 13.5 - 17.5 [facility] Comment on above: Performed By: #### C BC ####[address] [address] MCHC (RBC) [Mass/Vol] 32.3 g/dL Normal 32.0 - 36.0 [facility] Comment on above: Performed By: #### C BC ####[address] [address] MCV (RBC) [Entitic vol] 90 fL Normal 80 - 100 [facility] Comment on above: Performed By: #### C BC ####[address] [address] Nucleated RBC/100 WBC (Bld) [Ratio] 0.0 /100 WBC Normal 0.0 - 0.0 [facility] Comment on above: Performed By: #### C BC ####[address] [address] Platelets (Bld) [#/Vol] 180 10*3/uL Normal 150 - 450 [facility] Comment on above: Performed By: #### C BC ####[facility] [place] [address] RBC (Bld) [#/Vol] 4.25 x10E12/L Low 4.50 - 5.90 [facility] Comment on above: Performed By: #### C BC ####[address] [address] WBC (Bld) [#/Vol] 7.4 10*3/uL Normal 4.4 - 11.3 [facility] Comment on above: Performed By: #### C BC ####[facility] [place] [address] COAGULATION SCREENon 020 aPTT Coag (Bld) [Time] 30 s Normal 25 - 35 [facility] Comment on above: Result Comment: Note new reference range as of 12/15/2019. THE APTT IS NO LONGER USED FOR MONITORING UNFRACTIONATED HEPARIN THERAPY. FOR MONITORING HEPARIN THERAPY, USE THE HEPARIN ASSAY. Performed By: #### C OAGS ####[address] [address] INR Coag (PPP) [Relative time] 1.2 {INR} High 0.9 - 1.1 [facility] Comment on above: Performed By: #### C OAGS ####[facility] [place] [address] PT Coag (PPP) [Time] 13.6 s High 10.1 - 13.3 [facility] Comment on above: Result Comment: Note new reference range as of 12/15/2019. Performed By: #### C OAGS ####[address] [address] Consult-Cardiologyon 020 Consult-Cardiology Service: Service: Cardiology Consult: Consult requested by (Attending Name): Tj Steiner Reason: Cardiology for chest pain History of Present Illness: HPI: PARVEEN LEE is a 49 year old Male who came to hospital for evaluation of discomfort in his chest. He was sitting in his desk when he felt some pressure across his chest. It was associated with tingling in his left arm. He also felt some heartburn which was stronger than usual. The discomfort moved into his back. Lasted for roughly 45 minutes and resolved on its own. He was concerned so he came to hospital for evaluation. Chest discomfort is not return. He has been observed overnight. EKG and troponins are normal. No prior history of similar chest discomfort. He denies exertional chest pain or shortness of breath. No palpitations, lightheadedness, presyncope or syncope. No recent illnesses. Past history: 1. Hypertension 2. Hyperlipidemia 3. Diabetes 4. Morbid obesity 5. Knee replacement. 6. GERD FMHx: heart problems on mother side SocHx: no smoking, very occasionally alcohol use, no illicit drug use Allergies: No Known Allergies: Objective: Objective Information: T PRBPSpO2 [id number]/8299% Date/Time03/09 4: 4: 4: 4: 4:00 Range(36.7C - 37.4C ) (59 - 94 ) (16 - 20 ) (133 - 152 )/ (72 - 91 ) (96% - 99% ) Highest temp of 37.4 C was recorded at 03/08 20:05 Physical exam: JVP not elevated. Carotid upstroke normal. No carotid bruits. Heart sounds normal. No extra sounds or murmurs. Chest clear. Abdomen soft, nontender. No masses. Peripheral pulses palpable. No edema. EKG: Normal sinus rhythm Medications: Medications: Continuous Medications -------- 1. Sodium Chloride 0.9% Infusion: 1000 mL IntraVenous Scheduled Medications -------- 1. Aspirin Enteric Coated: 81 mg Oral Daily 2. Atorvastatin: 80 mg Oral At Bedtime 3. Enoxaparin SubCutaneous: 40 mg SubCutaneous Every 24 Hours 4. Insulin Lispro Mild Corrective Scale: unit(s) SubCutaneous 4 Times a Day Insulin Timing 5. Metoprolol Tartrate: 25 mg Oral Every 12 Hours 6. Pantoprazole: 40 mg Oral Daily 7. Venlafaxine Extended Release: 150 mg Oral Daily PRN Medications -------- 1. Acetaminophen: 650 mg Oral Every 6 Hours 2. Bisacodyl Enteric Coated: 5 mg Oral Once 3. Dextrose 50% in Water Injectable: 25 gram(s) IntraVenous Push Every 15 Minutes 4. Glucagon Injectable: 1 mg IntraMuscular Every 15 Minutes 5. Magnesium Hydroxide -Al Hydrox -Simethicone Oral Liquid: 30 mL Oral Every 6 Hours 6. Nitroglycerin SubLingual: 0.4 mg SubLingual Every 5 Minutes Conditional Medication Orders -------- 1. Perflutren Lipid Microsphere (Activated) 1.3 mL / NaCL 0.9% T.V. 10 mL Injectable: 0.5 mL IntraVenous Push Once Recent Lab Results: Results: I have reviewed these laboratory results: Glucose_POCT 09-Mar-2020 06:23:00 ResultValue Glucose-POCT 111 H Complete Blood Count 09-Mar-2020 05:45:00 ResultValue White Blood Cell Count 7.4 Nucleated Erythrocyte Count 0.0 Red Blood Cell Count 4.25 L HGB 12.3 L HCT 38.1 L MCV 90 MCHC 32.3 PLT 180 RDW-CV 14.1 Coagulation Screen 09-Mar-2020 05:45:00 ResultValue Prothrombin Time, Plasma 13.6 H International Normalized Ratio, Plasma 1.2 H Activated Partial Thromboplastin Time 30 Basic Metabolic Panel 09-Mar-2020 05:45:00 ResultValue Glucose, Serum 106 H NA 140 K 3.6 CL 104 Bicarbonate, Serum 29 Anion Gap, Serum 11 BUN 14 CREAT 0.70 GFR-Non >60 GFR- >60 Calcium, Serum 8.8 Lipid Panel 09-Mar-2020 05:45:00 ResultValue Cholesterol, Serum 118 . AGE DESIRABLE BORDERLINE HIGH HIGH 0-19 Y 0 - 169 170 - 199 >/= 200 20-24 Y 0 - 189 190 - 224 >/= 225 >24 Y 0 - 199 200 - 239 >/= 240 All ranges are based on fasting samp HDL Cholesterol, Serum 33.8 . AGE VERY LOW LOW NORMAL HIGH 0-19 Y < 35 < 40 40-45 ---- 20-24 Y ---- < 40 >45 ---- >24 Y ---- < 40 40-60 >60 . A Cholesterol/HDL Ratio 3.5 REF VALUES DESIRABLE < 3.4 HIGH RISK > 5.0 LDL, Level 50 . NEAR BORD AGE DESIRABLE OPTIMAL HIGH HIGH VERY HIGH 0-19 Y 0 - 109 --- 110-129 >/= 130 ---- 20-24 Y 0 - 119 --- 120-159 >/= 160 ---- >24 Y 0 - VLDL, Serum 34 Triglycerides, Serum 169 . AGE DESIRABLE BORDERLINE HIGH HIGH VERY HIGH 0 D-90 D 19 - 174 ---- ---- ---- 91 D- 9 Y 0 - 74 75 - 99 >/= 100 ---- 10-19 Y 0 - 89 90 - 129 >/= 130 ---- H Hemoglobin A1C, Level 09-Mar-2020 05:45:00 ResultValue Estimated Average Glucose 157 Hemoglobin A1C, Level 7.1 Diagnosis of Diabetes-Adults Non-Diabetic: < or = 5.6% Increased risk for developing diabetes: 5.7-6.4% Diagnostic of diabetes: > or = 6.5% . Monitoring of Diabetes Age (y) Therapeutic Goal (%) Adults: >1 Troponin I, Serum 09-Mar-2020 01:10:00 ResultValue Troponin I, Serum <0.02 Assessment: 49-year-old man with multiple cardiac risk factors presents with 45 minutes of chest pain at rest. EKG and cardiac enzymes are normal. Recommend he be stratified further with a exercise myocardial perfusion study. The patient had breakfast this morning so stress test will be done as an outpatient. Okay for discharge. He will call the office to arrange the test. Add aspirin to his regimen. Consult Signoff: Consult Order ID: [id number] Electronic Signatures: Jerome Sheth) (Signed 09-Mar-2020 08:32) Authored: Service, History of Present Illness, Allergies, Objective, Assessment/Recommendatio ns, Signature/Cosignature/At testation Last Updated: 09-Mar-2020 08:32 by Jerome Sheth) [facility] Discharge Planning [id number] 0 8 Discharge Planning Note2 Discharge Planning: Anticipated Discharge [id number] Discharge Planning A 49 year old male admitted to 90 from ER via cart with complaints of chest pain. Oriented to call system, bathroom, bed and bed controls, TV, telephone, visiting hours, and meal times. ID band in place. Issa cord in reach. Patient/Family/Significa nt Other informed of our commitment to safe, quality of care for all patients. Instructed to let Hospital staff member know if any time the patient/family believes that the medications, tests, or treatments are not consistent with the plan of care that the doctor(s) have discussed with them. Verbalized understanding. Patient/Family/Significa nt Other instructed in proper hand hygiene and respiratory etiquette. Verbalized understanding. Informed of importance of pain management. Instructed to notify staff if patient experiences pain/discomfort. Verbalized understanding. Patient/Family/Significa nt Other informed of hospital's tobacco-free policy via printed material, and one on one conversation.. Advised that they are not permitted to have tobacco products, matches, lighters, or electronic cigarettes at any time while in the hospital, and advised to send these materials home with the family. Any of the noted items not taken home by family will be discarded. Patient/Family/Significa nt Other verbalized understanding. Assessment: Discharge Planning Assessment [id number] Primary Contact Name and [phone] Anika Lee(1) Stated Reason for AdmissionChest pain, numbness(1) Arrived Fromemergency department (1) Lives Withspouse(1) Living Arrangementshouse(1) Resource/Environmental Concernsnone(1) Anticipated Transition [place](1) Services Anticipated at Transitionnone(1) Discharge Documentation: Discharge/Transfer Date/[id number] 11:22 Discharge Modeambulatory Transportation Methodprivate car Final DispositionHome Electronic Signatures: Blanca Ervin (RN) (Signed 09-Mar-2020 11:22) Authored: Discharge Planning Note2 Elvi Lima (ALESHIA) (Signed 09-Mar-2020 04:56) Authored: Discharge Planning Note2 Last Updated: 09-Mar-2020 11:22 by Blanca Ervin (RN) References: 1. Data Referenced From Patient Profile - Adult v2 08-Mar-2020 22:54 Normal [facility] Discharge [id number] Discharge Profile2 Discharge Orders: Anticipated Discharge Date: Anticipated Discharge [id number] Problem List: Additional Dx: Obesity: Catalog Name: Obesity, unspecified Diabetes mellitus: Catalog Name: Type 2 diabetes mellitus without complications Benign essential hypertension: Catalog Name: Essential (primary) hypertension Chest pain: Catalog Name: Chest pain, unspecified Call Provider If (Homegoing Patients): Breathing harder than normal or having retractions. Temperature is greater than 102 degrees. Chills. Vomiting (throwing up) and not able to eat or drink for 12 hours. 3 or more loose, watery bowel movements in 24 hours (diarrhea). Any new concerning symptoms. Provider FINAL REVIEW of Orders: Final Review: Final Review of Medication Reconciliation and Orders Completedby Physician Reviewing ProviderTj Steiner DO at 09-Mar-2020 09:55:27 Appointments: Follow-Up Appointment 01: Physician/Dept/Deidra Sheth/Cardiology Reason for ReferralChest pain Call to Schedule in2 weeks, call office to schedule Electronic Signatures: Tj Steiner) (Signed 09-Mar-2020 09:55) Authored: Discharge Orders, Provider FINAL REVIEW of Orders, Appointments, Gold Form - Blower Insulator Summary Last Updated: 09-Mar-2020 09:55 by Tj Steiner () Normal [facility] GLUCOSE-POCTon 03-09-2020 Glucose [Mass/Vol] 111 mg/dL High 74 - 99 [facility] Comment on above: Performed By: #### G MYA ####[facility] [place] [address] HEMOGLOBIN A1Con 03-09-2020 HbA1c (Bld) [Mass fraction] 157 MG/DL Normal [facility] Comment on above: Performed By: #### C BCDF #### [facility] [address] [place] [address] HbA1c (Bld) [Mass fraction] 7.1 % Normal [facility] Comment on above: Result Comment: Diag nosis of Diabetes-Adults Non-Diabetic: < or = 5.6% Increased risk for developing diabetes: 5.7-6.4% Diagnostic of diabetes: > or = 6.5% . Monitoring of Diabetes Age (y) Therapeutic Goal (%) Adults: >18 <7.0 Pediatrics: 13-18 <7.5 7-12 <8.0 0- 6 7.5-8.5 [place] [employer]. Diabetes Care 33(S1), Jul 2009. Performed By: #### C BCDF #### [facility] [address] [place] [address] LIPID PANEL (CORONARY RISK 2 )on 03-09-2020 Cholesterol [Mass/Vol] 118 mg/dL Normal 0 - 199 [facility] Comment on above: Result Comment: . AGE DESIRABLE BORDERLINE HIGH HIGH 0-19 Y 0 - 169 170 - 199 >/= 200 20-24 Y 0 - 189 190 - 224 >/= 225 >24 Y 0 - 199 200 - 239 >/= 240 All ranges are based on fasting samples. Specific therapeutic targets will vary based on patient-specific cardiac risk. . Pediatric guidelines reference:Pediatrics 2011, 128(S5). Adult guidelines reference: NCEP ATPIII Guidelines, WICHO 2001, 258:2486-97 . Venipuncture immediately after or during the administration of Metamizole may lead to falsely low results. Testing should be performed immediately prior to Metamizole dosing. Performed By: #### L IPID ####[facility] [place] [address] Cholesterol in HDL [Mass/Vol] 33.8 mg/dL Abnormal [facility] Comment on above: Result Comment: . AGE VERY LOW LOW NORMAL HIGH 0-19 Y < 35 < 40 40-45 ---- 20-24 Y ---- < 40 >45 ---- >24 Y ---- < 40 40-60 >60 . Performed By: #### L IPID ####[facility] [place] [address] Cholesterol in LDL [Mass/Vol] 50 mg/dL Normal 0 - 99 [facility] Comment on above: Result Comment: . NEAR BORD AGE DESIRABLE OPTIMAL HIGH HIGH VERY HIGH 0-19 Y 0 - 109 --- 110-129 >/= 130 ---- 20-24 Y 0 - 119 --- 120-159 >/= 160 ---- >24 Y 0 - 99 100-129 130-159 160-189 >/=190 . Performed By: #### L IPID ####[facility] [place] [address] Cholesterol in VLDL [Mass/Vol] 34 mg/dL Normal 0 - 40 [facility] Comment on above: Performed By: #### L IPID ####[facility] [place] [address] Cholesterol.total/Cho lesterol in HDL [Mass ratio] 3.5 {ratio} Normal [facility] Comment on above: Result Comment: REF VALUES DESIRABLE < 3.4 HIGH RISK > 5.0 Performed By: #### L IPID ####[facility] [place] [address] Triglyceride [Mass/Vol] 169 mg/dL High 0 - 149 [facility] Comment on above: Result Comment: . AGE DESIRABLE BORDERLINE HIGH HIGH VERY HIGH 0 D-90 D 19 - 174 ---- ---- ---- 91 D- 9 Y 0 - 74 75 - 99 >/= 100 ---- 10-19 Y 0 - 89 90 - 129 >/= 130 ---- 20-24 Y 0 - 114 115 - 149 >/= 150 ---- >24 Y 0 - 149 150 - 199 200- 499 >/= 500 . Venipuncture immediately after or during the administration of Metamizole may lead to falsely low results. Testing should be performed immediately prior to Metamizole dosing. Performed By: #### L IPID ####[facility] [place] [address] Patient Profile - Adult v2on 03-09-2020 Patient Profile - Adult v2 Profile: Initial Info: How to be Addressed.Wilder Spoken Language PreferredEnglish (1) Source of Informationpatient Are you currently using the Personal Electronic Health Record or [employer] Are you interested in learning more about [employer] for the management of your healthdeclined Stated Reason for AdmissionChest pain, numbness Primary Contact Name and [phone] Anika Lee Limitations on Visitors/Phone Callsnone Wants Family/Rep Notified of Admissionn/a; family present Notify PCPdo not notify PCP Informed of Patient Visiting Rightsyes Temporary Family Living Arrangements (While Hospitalized)none needed [facility] To in Past 90 Daysnone Employment Statusemployed Current or Previous Servicenone Patient Belongingsremains with patient Patient Belongings Remaining with Patientcell phone/electronics; clothing; purse/wallet; no hospitality director for cell phone Medications Brought to Hospitalno History of MDROno General Health: Weight in kg119.2 kilogram(s)(2) Weight in kbx923.7 pound(s) Height in feet5 feet(2) Height in lblkly25 inch(es)(2) Height in cm180.3 centimeter(s) BMI (kg/m2)36.667 square meter Weight Methodactual (measured) (2) Scale Typestanding (2) Height Methodstated (2) Blood Avoidance/Restrictionsno ne RSP Based Care: How would you like to participate in your careupdates What is the number one concern for you during this hospitalizationcause of the pain What is the most important thing we can do to support you during this hospitalizationupdates Is there anything we need to know to best care for ruby/a Recent Change in Mood/Behaviordenies Major Change/Loss/Stressor/Fea rsdenies Substance: Current or Former Substance Use never: Cigarette/Tobacco(3), e-Cigarette/Vaping(3), Alcohol(3), Street Drugs(3) Health Mgmt: Symptoms/Conditions Managed at Homeendocrine Endocrine Management Strategiesblood glucose testing; medication therapy; diet modification Endocrine Managementmanaged Barriers to Managing Healthnone Endocrine Symptoms/Conditionsdiabe jasmin Relationship/Environ: Primary Source of Support/Comfortspouse Lives Withspouse Living Arrangementshouse Significant Exposurenone Resource/Environmental Concernsnone Anticipated Transition [place] Services Anticipated at Transitionnone Significant IndicatorsComplete Information Review: Allergies, Home Meds and Significant Events have been Reviewed and Verified with Patient/Familyyes ALLERGY, INTOLERANCE, ADVERSE EVENT: Allergies: No Known Allergies: Active Electronic Signatures: Raiza Johnson (ALESHIA) (Signed 08-Mar-2020 23:14) Authored: Profile, Additional Information Last Updated: 08-Mar-2020 23:14 by Raiza Johnson (ALESHIA) References: 1. Data Referenced From Triage - ED 08-Mar-2020 15:25 2. Data Referenced From 1. Vital Signs 08-Mar-2020 20:05 3. Data Referenced From Risk Screen - Adult Emergency 08-Mar-2020 15:30 Normal [facility] TROPONIN Ion 03-09-2020 Troponin I.cardiac [Mass/Vol] ng/mL Normal 0.00 - 0.03 [facility] Comment on above: Result Comment: LESS THAN 0.04 NG/ML: NEGATIVE REPEAT TESTING IN THREE TO SIX HOURS IF CLINICALLY INDICATED. 0.04 - 0.5 NG/ML: CONSISTENT WITH POSSIBLE CARDIAC DAMAGE AND POSSIBLE INCREASED CLINICAL RISK. SERIAL MEASUREMENTS MAY HELP ASSESS EXTENT OF MYOCARDIAL DAMAGE. >0.5 NG/ML: CONSISTENT WITH CARDIAC DAMAGE, INCREASED CLINICAL RISK AND MYOCARDIAL INFARCTION. SERIAL MEASUREMENTS MAY HELP ASSESS EXTENT OF MYOCARDIAL DAMAGE. . Note: Troponin I testing is performed using different testing methodology at [facility] than at [facility]. Direct result comparisons should only be made within the same method. Performed By: #### T ROP2 ####[facility] [place] [address] Troponin I.cardiac [Mass/Vol] ng/mL Normal 0.00 - 0.03 [facility] Comment on above: Result Comment: LESS THAN 0.04 NG/ML: NEGATIVE REPEAT TESTING IN THREE TO SIX HOURS IF CLINICALLY INDICATED. 0.04 - 0.5 NG/ML: CONSISTENT WITH POSSIBLE CARDIAC DAMAGE AND POSSIBLE INCREASED CLINICAL RISK. SERIAL MEASUREMENTS MAY HELP ASSESS EXTENT OF MYOCARDIAL DAMAGE. >0.5 NG/ML: CONSISTENT WITH CARDIAC DAMAGE, INCREASED CLINICAL RISK AND MYOCARDIAL INFARCTION. SERIAL MEASUREMENTS MAY HELP ASSESS EXTENT OF MYOCARDIAL DAMAGE. . Note: Troponin I testing is performed using different testing methodology at [facility] than at [facility]. Direct result comparisons should only be made within the same method. Performed By: #### T ROP2 ####[facility] [place] [address] BASIC METABOLIC PANELon 02-19 Anion gap [Moles/Vol] 12 mmol/L Normal 10 - 20 [facility] Comment on above: Performed By: #### B MP #### [facility] [address] [place] [address] Calcium [Mass/Vol] 10.2 mg/dL Normal 8.6 - 10.3 [facility] Comment on above: Performed By: #### B MP #### [facility] [address] [place] [address] Chloride [Moles/Vol] 102 mmol/L Normal 98 - 107 [facility] Comment on above: Performed By: #### B MP #### [address] [address] Creatinine [Mass/Vol] 0.80 mg/dL Normal 0.50 - 1.30 [facility] Comment on above: Performed By: #### B MP #### [address] [address] GFR- AM. >60 Normal >60 [facility] Comment on above: Result Comment: CALC ULATIONS OF ESTIMATED GFR ARE PERFORMED USING THE MDRD STUDY EQUATION FOR THE IDMS-TRACEABLE CREATININE METHODS. CLIN CHEM 2007;53:766-72 Performed By: #### B MP #### [address] [address] GFR-NON AM. >60 Normal >60 [facility] Comment on above: Performed By: #### B MP #### [address] [address] Glucose [Mass/Vol] 109 mg/dL High 74 - 99 [facility] Comment on above: Performed By: #### B MP #### [address] [address] HCO3 (Bld) [Moles/Vol] 31 mmol/L Normal 21 - 32 [facility] Comment on above: Performed By: #### B MP #### [address] [address] Potassium [Moles/Vol] 3.6 mmol/L Normal 3.5 - 5.3 [facility] Comment on above: Performed By: #### B MP #### [address] [address] Sodium [Moles/Vol] 141 mmol/L Normal 136 - 145 [facility] Comment on above: Performed By: #### B MP #### [address] [address] Urea nitrogen [Mass/Vol] 14 mg/dL Normal 6 - 23 [facility] Comment on above: Performed By: #### B MP #### [address] [address] CBC AND DIFFERENTIALon 03-08 % AUTOMATED IMMATURE GRAN 0.3 % Normal 0.0 - 0.9 [facility] Comment on above: Result Comment: Jossy ture Granulocyte Count (IG) includes promyelocytes, myelocytes and metamyelocytes but does not include bands. Percent differential counts (%) should be interpreted in the context of the absolute cell counts (cells/L). Performed By: #### C BCDF #### [address] [place] [address] Basophils (Bld) [#/Vol] 0.04 10*3/uL Normal 0.00 - 0.10 [facility] Comment on above: Performed By: #### C BCDF #### [address] [place] [address] Basophils/100 WBC (Bld) 0.4 % Normal 0.0 - 2.0 [facility] Comment on above: Performed By: #### C BCDF #### [address] [place] [address] Eosinophils (Bld) [#/Vol] 0.58 10*3/uL Normal 0.00 - 0.70 [facility] Comment on above: Performed By: #### C BCDF #### [address] [place] [address] Eosinophils/100 WBC (Bld) 6.2 % Normal 0.0 - 6.0 [facility] Comment on above: Performed By: #### C BCDF #### [address] [place] [address] Erythrocyte distribution width (RBC) [Ratio] 13.9 % Normal 11.5 - 14.5 [facility] Comment on above: Performed By: #### C BCDF #### [address] [place] [address] Hematocrit (Bld) [Volume fraction] 41.6 % Normal 41.0 - 52.0 [facility] Comment on above: Performed By: #### C BCDF #### [address] [place] [address] Hemoglobin (Bld) [Mass/Vol] 13.8 g/dL Normal 13.5 - 17.5 [facility] Comment on above: Performed By: #### C BCDF #### [facility] [address] [facility] [place] [address] Lymphocytes (Bld) [#/Vol] 1.50 10*3/uL Normal 1.20 - 4.80 [facility] Comment on above: Performed By: #### C BCDF #### [facility] [address] [place] [address] Lymphocytes/100 WBC (Bld) 16.0 % Normal 13.0 - 44.0 [facility] Comment on above: Performed By: #### C BCDF #### [address] [place] [address] MCHC (RBC) [Mass/Vol] 33.2 g/dL Normal 32.0 - 36.0 [facility] Comment on above: Performed By: #### C BCDF #### [address] [place] [address] MCV (RBC) [Entitic vol] 90 fL Normal 80 - 100 [facility] Comment on above: Performed By: #### C BCDF #### [address] [place] [address] Monocytes (Bld) [#/Vol] 0.63 10*3/uL Normal 0.10 - 1.00 [facility] Comment on above: Performed By: #### C BCDF #### [address] [place] [address] Monocytes/100 WBC (Bld) 6.7 % Normal 2.0 - 10.0 [facility] Comment on above: Performed By: #### C BCDF #### [facility] [address] [place] [address], [place] [address] Neutrophils (Bld) [#/Vol] 6.58 10*3/uL Normal 1.20 - 7.70 [facility] Comment on above: Performed By: #### C BCDF #### [facility] [address] [place], [place] [address] [place] [address] Neutrophils/100 WBC (Bld) 70.4 % Normal 40.0 - 80.0 [facility] Comment on above: Performed By: #### C BCDF #### [address] [place] [address] Nucleated RBC/100 WBC (Bld) [Ratio] 0.0 /100 WBC Normal 0.0 - 0.0 [facility] Comment on above: Performed By: #### C BCDF #### [facility] [address] [place] [address] Platelets (Bld) [#/Vol] 221 10*3/uL Normal 150 - 450 [facility] Comment on above: Performed By: #### C BCDF #### [facility] [address] [place] [address] RBC (Bld) [#/Vol] 4.64 x10E12/L Normal 4.50 - 5.90 [facility] Comment on above: Performed By: #### C BCDF #### [facility] [address] [place] [address] WBC (Bld) [#/Vol] 9.4 10*3/uL Normal 4.4 - 11.3 [facility] Comment on above: Performed By: #### C BCDF #### [facility] [address] [place] [address] CHEST 1 VIEWon 03-08-2020 CHEST 1 VIEW Patient Name: PARVEEN LEE STUDY: CHEST 1 VIEW; 03/08/2020 4:45 pm INDICATION: Chest Pain. COMPARISON: None. ACCESSION NUMBER(S): [id number] ORDERING CLINICIAN: SEJAL ELIAS FINDINGS: Portable AP view of the chest provided. The cardiac silhouette is normal in size. No focal airspace consolidation or pleural effusion. No pneumothorax. No acute osseous abnormality. IMPRESSION: No airspace consolidation or pleural effusion. Electronically signed by: KATHRYN PATEL MD Normal [facility] CORONAVIRUS 2019 BY PCRon CORONAVIRUS 2019,PCR NOT DETECTED Normal Not Detected [facility] Comment on above: Result Comment: This assay is designed to detect the RdRp gene of SARS-CoV-2 via nucleic acid amplification. A Not Detected result does not preclude COVID-19 infection since the adequacy of sample collection and/or low viral burden may result in presence of viral nucleic acids below the clinical sensitivity of this test method. Fact sheet for providers: www.fda.gov/media/427090/download Fact sheet for patients: www.fda.gov/media/927582/download This test has received FDA Emergency Use Authorization (EUA) and has been verified by [facility]. This test is only authorized for the duration of time that circumstances exist to justify the authorization of the emergency use of in vitro diagnostic tests for the detection of SARS-CoV-2 virus and/or diagnosis of COVID-19 infection under section 564(b)(1) of the Act, 21 U.S.C. 360bbb-3(b)(1), unless the authorization is terminated or revoked sooner. [facility] is certified under CLIA-88 as qualified to perform high complexity testing. Testing is performed in the [facility] laboratory located at [address] [place] [address]. Performed By: #### C OV19 #### [place] [address] Lab Specimen Source Nasal, Nasopharyngeal Normal [facility] Comment on above: Performed By: #### C OV19 #### [place] [address] Clinical Intervention - Karina michaud 03-08-2020 Clinical Intervention - Pharmacy Pharmacist's Clinical Intervention: Is this intervention medication reconciliation related: Yes, History Electronic Signatures: Maryanne Ware ([employer] (Signed 08-Mar-2020 17:57) Authored: Pharmacist's Clinical Intervention Last Updated: 08-Mar-2020 17:57 by Maryanne Ware ([employer] Normal [facility] GLUCOSE-POCTon 03-08-2020 Glucose [Mass/Vol] 103 mg/dL High 74 - 99 [facility] Comment on above: Performed By: #### G MYA ####[facility] [place] [address] History and Physicalon 03-08 History and Physical History of Present Illness: Admission Reason: Chest pain HPI: PARVEEN LEE is a 49 year old Male PMHx HTN, DM2, obesity presents to [facility] ED for chest pain. Chest pain started around noon when he got to work. He noticed a pressure across his chest and his left arm was tingling. Pain worsened and he started to have shoulder and neck pain a/w being sweaty. Patient got concerned and came to the ED. His chest pain persisted until he was given 4 aspirins to chew on. Denies any previous similar symptoms in the past. Currently reports some heartburn. Vital signs stable, initial troponin negative. 12 lead EKG shows NSR, low voltage, no acute ischemic changes. PMHx/PShx: HTN, DM2, obesity, knee replacement FMHx: heart problems on mother side SocHx: no smoking, very occasionally alcohol use, no illicit drug use Comorbidities: Comorbid Conditionsdiabetes, hypertension Diabtetes TypeType 2 Insulin Dependentno DM Acuity or Statusunknown Allergies: No Known Allergies: Medications Prior to Admission: dulaglutide 0.75 mg/0.5 mL subcutaneous solution: Inject 0.75 mg every 2 weeks hydroCHLOROthiazide 25 mg oral tablet: 1 tab(s) orally once a day venlafaxine 150 mg oral capsule, extended release: 1 cap(s) orally once a day atorvastatin 20 mg oral tablet: 1 tab(s) orally once a day metFORMIN 1000 mg oral tablet: 1 tab(s) orally 2 times a day. Review of Systems: Constitutional: NEGATIVE: Fever, Chills, Weight Loss Eyes: NEGATIVE: Blurry Vision, Diploplia, Vision Loss/ Change ENMT: NEGATIVE: Mouth Pain, Throat Pain Respiratory: NEGATIVE: Productive Cough, Shortness of Breath Cardiac: POSITIVE: Chest Pain; NEGATIVE: Syncope Gastrointestinal: NEGATIVE: Nausea, Vomiting, Diarrhea, Constipation, Abdominal Pain Genitourinary: NEGATIVE: Dysuria Musculoskeletal: NEGATIVE: Pain, Swelling Neurological: NEGATIVE: Confusion, Headache Psychiatric: NEGATIVE: Hallucinations Skin: NEGATIVE: Rash, Ulcer Endocrine: POSITIVE: Sweat; NEGATIVE: Polyuria Hematologic/Lymph: NEGATIVE: Bruising, Easy Bleeding Allergic/Immunologic: NEGATIVE: Itching All Other Systems: All other systems reviewed and are negative Objective: Objective Information: T PRBPSpO2 [id number]% Date/Time03/08 15: 18:008 18:008 18:008 18:00 Range(37C - 37C ) (84 - 94 ) (16 - 18 ) (140 - 143 )/ (88 - 91 ) (97% - 98% ) Highest temp of 37 C was recorded at 03/08 15:25 Pain reported at 03/08 15:25: 8 = Severe Physical Exam by System: Constitutional: awake, afebrile, not in acute distress, obese Eyes: PERRL, EOMI, clear sclera ENMT: mucous membranes moist Head/Neck: neck supple, trachea midline, no JVD Respiratory/Thorax: CTAB, no rales/rhonchi/wheezing Cardiovascular: RRR, no rubs/murmurs/gallops Gastrointestinal: +BS x4, soft, nt/nd/ng/nr Musculoskeletal: ROM intact, no joint swelling, normal strength Extremities: no edema, no cellulitis Neurological: A&O x3, CN 2-12 grossly intact, no focal neurological deficits Psychological: Appropriate mood and behavior Skin: warm and dry, intact Medications: Medications: Continuous Medications -------- 1. Sodium Chloride 0.9% Infusion: 1000 mL IntraVenous Scheduled Medications -------- 1. Insulin Lispro Mild Corrective Scale: unit(s) SubCutaneous 4 Times a Day Insulin Timing 2. Venlafaxine Extended Release: 150 mg Oral Daily PRN Medications -------- 1. Dextrose 50% in Water Injectable: 25 gram(s) IntraVenous Push Every 15 Minutes 2. Glucagon Injectable: 1 mg IntraMuscular Every 15 Minutes Recent Lab Results: Results: CBC: 03/08/2020 17:05 \ Hgb / \ 13.8 / WBC Plt 9.4 221 / Hct \ / 41.6 \ RBC: 4.64 MCV: 90 Neutrophil %: 70.4 BMP: 03/08/2020 17:05 NA+ Cl- BUN / 141 102 14 / -------- Glucose --- 109 H K+ HCO3- Creat \ 3.6 31 0.80 \ Calcium : 10.2 Anion Gap : 12 Coagulation: 03/08/2020 17:05 PT / 13.5 H / -------< INR < 1.2 H PTT\ \ I have reviewed these laboratory results: Troponin I, Serum 08-Mar-2020 17:05:00 ResultValue Troponin I, Serum <0.02 Radiology Results: Results: Impression: No airspace consolidation or pleural effusion. Xray Chest 1 View [Mar 08 2020 5:43PM] Assessment and Plan: Problem List: Additional Dx: Obesity: Diabetes mellitus: Benign essential hypertension: Chest pain: Assessment: 49 year old Male PMHx HTN, DM2, obesity presents to [facility] ED for chest pain. # Chest pain # HTN # DM2 # Obesity History concerning for ACS. Initial troponin negative, normal EKG. Monitor on telemetry, trend troponin. Administer aspirin, beta pawel, statin, nitro SL PRN. Check lipid panel and HA1c. Consulted cardiology. NPO after midnight in case cardiology wants further in house testing. Hold oral antidiabetic medications, use insulin sliding scale. Signatures/Attestation/C ertification: Note Completion: Attending Provider Inpatient Certification StatementObservation patient/other outpatient visits Electronic Signatures: Tj Steiner) (Signed 08-Mar-2020 19:00) Authored: History of Present Illness, Comorbidities, Allergies, Medications Prior to Admission, Review of Systems, Objective, Assessment and Plan, Signatures/Attestation/C ertification Last Updated: 08-Mar-2020 19:00 by Tj Steiner () Normal [facility] PT/INRon 03-08-2020 INR Coag (PPP) [Relative time] 1.2 {INR} High 0.9 - 1.1 [facility] Comment on above: Performed By: #### P TINR #### [facility] [address] [place] [address] PT Coag (PPP) [Time] 13.5 s High 10.1 - 13.3 [facility] Comment on above: Result Comment: Note new reference range as of 12/15/2019. Performed By: #### P TINR #### [facility] [address] [place] [address] Provider Note - ED v2on 02-19 Provider Note - ED v2 Provider Note - ED v2: Chart Review: ED NOTES ED NOTES: This is a 49-year-old male who comes in with complaints of chest pain. States that he had tightness across his chest into both shoulders and some numbness down the left arm he also had heartburn. He states that it started with heartburn at 1030 this morning and when he was at his work site he had the tightness across his chest. He states that he is pain-free at this time. He denies any cough congestion or shortness of breath here for further evaluation. Positive history of hypertension diabetes hyperlipidemia positive family history Family HX: Denies any significant/pertinent family history. Social Hx: Denies ETOH or drug use. Review of systems: Gen.: No weight loss, fatigue, anorexia, insomnia, fever. Eyes: No vision loss, double vision, drainage, eye pain. ENT: No pharyngitis, dry mouth. Cardiac: No chest pain, palpitations, syncope, near syncope. Pulmonary: No shortness of breath, cough, hemoptysis. Heme/lymph: No swollen glands, fever, bleeding. GI: No abdominal pain, change in bowel habits, melena, hematemesis, hematochezia, nausea, vomiting, diarrhea. : No discharge, dysuria, frequency, urgency, hematuria. Musculoskeletal: No limb pain, joint pain, joint swelling. Skin: No rashes. Psych: No depression, anxiety, suicidality, homicidality. Neuro: Denies any numbness weakness or tingling of arms or legs. Denies any loss of bladder or bowel function. Denies any visual disturbance hearing disturbance difficulty speaking or swallowing or gait changes. Review of systems is otherwise negative unless stated above or in history of present illness. Physical Exam Appearance: Alert, oriented , cooperative, in no acute distress. Well nourished & well hydrated. Skin: Intact, dry skin, no lesions, rash, petechiae or purpura. Eyes: PERRLA, EOMs intact, Conjunctiva pink with no redness or exudates. Cornea & anterior chamber are clear, Eyelids without lesions. No scleral icterus. ENT: Hearing grossly intact. External auditory canals patent, tympanic membranes intact with visible landmarks. Nares patent, mucus membranes moist. Dentition without lesions. Pharynx clear, uvula midline. Neck: Supple, without meningismus. Thyroid not palpable. Trachea at midline. No lymphadenopathy. Pulmonary: Clear bilaterally with good chest wall excursion. No rales, rhonchi or wheezing. No accessory muscle use or stridor. Cardiac: Normal S1, S2 without murmur, rub, gallop or extrasystole. No JVD, Carotids without bruits. Abdomen: Soft, nontender, active bowel sounds. No palpable organomegaly. No rebound or guarding. No CVA tenderness. Genitourinary: Exam deferred. Musculoskeletal: Full range of motion. no pain, edema, or deformity. Pulses full and equal. No cyanosis, clubbing, or edema. Neurological: Cranial nerves II through XII are grossly intact, normal sensation, no weakness, no focal findings identified. Strength 5 out of 5 upper and lower extremities bilaterally and symmetrically Psychiatric: Appropriate mood and affect. Denies depression or suicidal ideation. HISTORY OF PRESENTING ILLNESS PARVEEN is a 49 year old Male and was seen by me at 08-Mar-2020 15:56 for a chief complaint of chest pain (patient states tightness to chest with tingling to l eft arm, pain across shoulders and extreme heartburn since approx 1030 this morning.)(1). Triage Information: Most recent Vital Sign Value Date Temp (F): 98.6 03-08-2020 15:25 Temp (C): 37 03-08-2020 15:25 Heart Rate (beats/min): 94 03-08-2020 15:25 Respirations (breaths/min): 18 03-08-2020 15:25 SpO2 (%): 97 03-08-2020 15:25 BP Systolic (mm Hg): 143 03-08-2020 15:25 BP Diastolic (mm Hg): 91 03-08-2020 15:25 PAST MEDICAL HISTORY ATTESTATION: I have reviewed and confirmed nurse's/medic's notes for patient's medications, allergies, medical history, and surgical history ALLERGIES/INTOLERANCES: No Known Allergies HEALTH HISTORY: No documented data. OUTPATIENT MEDICATIONS: Home Medications Review Status for Reconciliation: Complete Med Status: Patient Currently Takes Medications Drug Name: dulaglutide 0.75 mg/0.5 mL subcutaneous solution Instructions: Inject 0.75 mg every 2 weeks Drug Name: hydroCHLOROthiazide 25 mg oral tablet Instructions: 1 tab(s) orally once a day Drug Name: venlafaxine 150 mg oral capsule, extended release Instructions: 1 cap(s) orally once a day Drug Name: atorvastatin 20 mg oral tablet Instructions: 1 tab(s) orally once a day Drug Name: metFORMIN 1000 mg oral tablet Instructions: 1 tab(s) orally 2 times a day Drug Name: aspirin 81 mg oral delayed release tablet Instructions: 1 tab(s) orally once a day Drug Name: pantoprazole 40 mg oral delayed release tablet Instructions: 1 tab(s) orally once a day SIGNIFICANT EVENTS: Past Medical History Description:diabetes Description:depression Description:HTN Description:HDL CLINICAL DECISION SUPPORT HEART SCORE HEART History: Highly suspicious HEART ECG: Normal HEART Age: > 45 and < 65 HEART Risk Factors: Greater than or = to 3 risk factors or history of atherosclerotic diease HEART Troponin: Less than or = 1x the normal limit TOTAL HEART SCORE: 5 CLINICAL IMPRESSION Diagnosis/Annotation: ED Dx Name:Chest pain Code:R07.9 Dispostion: hospitalized ATTESTATION CRITICAL CARE TIME Is this a critically ill patient: no Electronic Signatures: Sejal Elias) (Signed 14-Mar-2020 13:18) Authored: Provider Note - ED v2 Last Updated: 14-Mar-2020 13:18 by Sejal Elias) References: 1. Data Referenced From Triage - ED 08-Mar-2020 15:25 Normal [facility] Risk Screen - Adult Emergenc yon 03-08-2020 Risk Screen - Adult Emergency Preferred Language: Preferred Language: Preferred Language for Discussing Health Care (patient/designee)Jacinto osborne Advanced Directives: Advance Directive/DNRno Family Violence Adult: Abuse Screen: Are you or have you been threatened or abused physically, emotionally, or sexually by anyoneno Learning Assessment (Patient): Learning Assessment (Patient): Patient is Able to be Assessed for Learningyes Factors Influencing Readiness to Learnacuteness of illness; anxiety Factors that Impact Ability to Learnnone Devices/Methods Used to Communicateglasses Learning Preferencesverbal instruction; individual instruction Cultural Considerationsnone Developmental Considerationsnone Sabianism Considerationsnone Learning Assessment (Other Learner): Learning Assessment (Other Learner): Other learner availableno Pressure Injury/TB/Substance: Pressure Injury: Pressure Injury Present on Admissionno Do you have a coughno Substance Use Current or Former Historynever: Cigarette/Tobacco, e-Cigarette/Vaping, Alcohol, Street Drugs Admission Risk Screen: Significant IndicatorsComplete CAGE: CAGE: Is this an injured patient at a Trauma Center ([facility]/[place] /[place]): no Electronic Signatures: Radha Navarro (RN) (Signed 08-Mar-2020 15:31) Authored: Preferred Language, Advanced Directives, Family Violence Adult, Learning Assessment (Patient), Learning Assessment (Other Learner), Pressure Injury/TB/Substance, CAGE Last Updated: 08-Mar-2020 15:31 by Radha Navarro (RN) Normal [facility] TROPONIN Ion 03-08-2020 Troponin I.cardiac [Mass/Vol] ng/mL Normal 0.00 - 0.03 [facility] Comment on above: Result Comment: LESS THAN 0.04 NG/ML: NEGATIVE REPEAT TESTING IN THREE TO SIX HOURS IF CLINICALLY INDICATED. 0.04 - 0.5 NG/ML: CONSISTENT WITH POSSIBLE CARDIAC DAMAGE AND POSSIBLE INCREASED CLINICAL RISK. SERIAL MEASUREMENTS MAY HELP ASSESS EXTENT OF MYOCARDIAL DAMAGE. >0.5 NG/ML: CONSISTENT WITH CARDIAC DAMAGE, INCREASED CLINICAL RISK AND MYOCARDIAL INFARCTION. SERIAL MEASUREMENTS MAY HELP ASSESS EXTENT OF MYOCARDIAL DAMAGE. . Note: Troponin I testing is performed using different testing methodology at [facility] than at other [facility]. Direct result comparisons should only be made within the same method. Performed By: #### T ROP2 #### [facility] [address] [place] [address] Triage - EDon 03-08-2020 Triage - ED Quick Triage: The patient and/or guardian verbally acknowledges placement for services into the following (when Urgent Care Service hours are operating):emergency department Chart Review: CHIEF COMPLAINT PARVEEN LEE is a Male patient with a chief complaint of chest pain (patient states tightness to chest with tingling to l eft arm, pain across shoulders and extreme heartburn since approx 1030 this morning.). Triage Date/Time: 08-Mar-2020 15:25 Pain Rating (0-10): 8 = Severe Vital Signs: Temperature: 98.6F ( 37.0C) taken temporal Blood Pressure: 143/91 Mean: Heart Rate: 94 Respiratory Rate: 18 Pulse Oximetry: 97% on room air, no respiratory support. Height: 5 feet 11.00 inches. 180.3 CM Weight: 265.4 pounds. Calculated 120.4 kg. (stated) Calculated BMI (kg/m2): 37.036 Calculated BSA (m2) 2.46 Paulino Coma Scale: Best Eye Response: (E4) spontaneous Best Motor Response: (M6) obeys commands Best Verbal Response: (V5) oriented Paulino Score: 15 Cough lasting greater than 3 weeks: no Patient immunocompromised related to: N/A Allergies: no Patient has homicidal thoughts: no GUILLERMO: 3 Symptoms Are POSITIVE For: pain Symptoms Are Negative For: anxiety, chills, diaphoresis, dyspnea, headache, loss of consciousness, nausea, numbness, tingling (left arm) and weakness Area Of Chest Pain: Sternal Region Chest Pain Radiation-Left: arm Risk Screens Suicide Risk Screen In the Past Month: Have you wished you were or wished you could go to sleep and not wake up no In the Past Month: Have you had any actual thoughts of killing yourself no In Your Lifetime: Have you ever done anything, started to do anything, or prepared to do anything to end your life no Coronel Fall Scale Screening Has the patient fallen before (or is the patient in the ED as a result of a fall) has not had a fall Does the patient have an impaired gait does not have impaired gait Is the patient cognitively impaired not cognitively impaired Interventions: Coronel Fall Interventions: LOW INTERVENTIONS: *patient oriented to surroundings and call system, * patient/family falls education completed and documented, *patients fall status communicated during bedside handoff, *whiteboard updated, *mode of toileting discussed with patient, *bed in low position with brakes locked, *call light in reach, * non-skid footwear PAIN Pain Scale Used: CAROLINA Pain Rating (0-10): 8 = Severe ARRIVAL INFORMATION Means of Arrival: Ambulatory Mode of Arrival: private vehicle Accompanied By: self Language: Spoken Language Preferred: Welsh Reading Language Preferred: Welsh Investigation Clerk Requested: no career services assistant was requested MDRO: History of MDRO: no Present on Arrival: Device Present on Arrival to ED: no PRIMARY ASSESSMENT PARVEEN LEE's primary assessment is Within Defined Limits. The airway is open and patent. Breathing spontaneous and unlabored with clear breath sounds bilaterally. Circulation is normal with good peripheral pulses. Skin is warm and dry and color is normal for race. TRAVEL HISTORY Travel History Coronavirus Screening: no exposure or symptoms Travel Exposure History: NO travel to International locations in the past 30 days Past Medical History: Past Medical History Reviewedyes HDL: Past Medical History, Active HTN: Past Medical History, Active depression: Past Medical History, Active diabetes: Past Medical History, Active Electronic Signatures: Radha Navarro (RN) (Signed 08-Mar-2020 15:30) Authored: Triage, Past Medical History Last Updated: 08-Mar-2020 15:30 by Radha Navarro (RN) Normal [facility] Vital Signs Date Time Vital Sign Value Performing Clinician Facility 10-06-2024 09:02-0400 Body height 177.8 cm [facility] 10-06-2024 09:02-0400 Body mass index (BMI) [Ratio] 37.5 kg/m2 [facility] 10-06-2024 09:02-0400 Body weight 118.5 kg [facility] 10-06-2024 09:02-0400 Diastolic blood pressure 89 mm[Hg] [facility] 10-06-2024 09:02-0400 Heart rate 78 /min [facility] 10-06-2024 09:02-0400 Respiratory rate 12 /min [facility] 10-06-2024 09:02-0400 Systolic blood pressure 139 mm[Hg] [facility] 09-22-2024 16:09-0500 Body temperature 97.34 [degF] Umer Unger [facility] 09-22-2024 16:09-0500 Diastolic blood pressure 99 mm[Hg] Umer Unger [facility] 09-22-2024 16:09-0500 Heart rate 109 /min Umer Unger [facility] 09-22-2024 16:09-0500 Respiratory rate 20 /min Umer Unger [facility] 09-22-2024 16:09-0500 SaO2% (BldA) [Mass fraction] 97 % Umer Unger [facility] 09-22-2024 16:09-0500 Systolic blood pressure 174 mm[Hg] Umer Unger [facility] 09-15-2024 14:58-0500 Body height 180.3 cm Dot Connell MD Work Phone: [facility] 09-15-2024 14:58-0500 Body mass index (BMI) [Ratio] 36.51 kg/m2 Dot Connell MD Work Phone: [facility] 09-15-2024 14:58-0500 Body weight 118.75 kg Dot Connell MD Work Phone: [facility] 03-10-2024 09:39-0400 Body height 180.3 cm Dot Connell MD Work Phone: [facility] 03-10-2024 09:39-0400 Body mass index (BMI) [Ratio] 36.4 kg/m2 Dot Connell MD Work Phone: [facility] 03-10-2024 09:39-0400 Body weight 118.39 kg Dot Connell MD Work Phone: [facility] 12-26-2023 13:10-0400 Blood Pressure Location [facility] 12-26-2023 13:10-0400 Body temperature 97.16 [degF] [facility] 12-26-2023 13:10-0400 Diastolic blood pressure 84 mm[Hg] [facility] 12-26-2023 13:10-0400 Heart rate 79 /min [facility] 12-26-2023 13:10-0400 SaO2% (BldA) [Mass fraction] 96 % Zelalem Brink [facility] 12-26-2023 13:10-0400 Systolic blood pressure 136 mm[Hg] [facility] 11-14-2023 17:14-0400 Diastolic blood pressure 92 mm[Hg] ISAI PETERSON [facility] 11-14-2023 17:14-0400 Mean blood pressure 111 mm[Hg] ISAI PETERSON [facility] 11-14-2023 17:14-0400 Systolic blood pressure 150 mm[Hg] SLEDGE PETERSON [facility] 11-14-2023 16:53-0400 Blood Pressure Location ISAI PETERSON [facility] 11-14-2023 16:53-0400 Body temperature 98.24 [degF] ISAI PETERSON [facility] 11-14-2023 16:53-0400 Diastolic blood pressure 84 mm[Hg] SLEDGE PETERSON [facility] 11-14-2023 16:53-0400 Heart rate 90 /min SLEDGE PETERSON [facility] 11-14-2023 16:53-0400 SaO2% (BldA) [Mass fraction] 98 % ISAI PETERSON [facility] 11-14-2023 16:53-0400 Systolic blood pressure 162 mm[Hg] SLEDGE PETERSON [facility] 11-05-2023 09:43-0400 Body height 180.3 cm Dot Connell MD Work Phone: [facility] 11-05-2023 09:43-0400 Body mass index (BMI) [Ratio] 36.17 kg/m2 Dot Connell MD Work Phone: 7(402)350-493006 [place] [address] 11-05-2023 09:43-0400 Body weight 117.62 kg Dot Connell MD Work Phone: 4(254)238-402906 [place] [address] 08-14-2023 11:39-0500 Body height 180.3 cm Dot Connell MD Work Phone: 8(358)698-012706 [place] [address] 08-14-2023 11:39-0500 Body mass index (BMI) [Ratio] 37.59 kg/m2 Dot Connell MD Work Phone: 3(916)192-918106 [place] [address] 08-14-2023 11:39-0500 Body temperature 97.59 [degF] Dot Connell MD Work Phone: 3(270)767-600106 [place] [address] 08-14-2023 11:39-0500 Body weight 122.24 kg Dot Connell MD Work Phone: 9(642)075-866206 [place] [address] 07-30-2023 11:00-0500 Body height 180.3 cm Dot Connell MD Work Phone: 7(711)433-896706 [place] [address] 07-30-2023 11:00-0500 Body mass index (BMI) [Ratio] 37.74 kg/m2 Dot Connell MD Work Phone: 1(937)099-966306 [place] [address] 07-30-2023 11:00-0500 Body weight 122.74 kg Dot Connell MD Work Phone: 2(541)809-685806 [place] [address] 07-26-2023 15:30-0500 Body temperature 97 [degF] Dot Connell MD Work Phone: 2(178)993-661106 [place] [address] 07-26-2023 15:30-0500 Diastolic blood pressure 74 mm[Hg] Dot Connell MD Work Phone: 1(352)482-016606 [place] [address] 07-26-2023 15:30-0500 Heart rate 76 /min Dot Connell MD Work Phone: [facility] 07-26-2023 15:30-0500 Respiratory rate 20 /min Dot Connell MD Work Phone: [facility] 07-26-2023 15:30-0500 SaO2% (BldA) [Mass fraction] 98 % Dot Connell MD Work Phone: [facility] 07-26-2023 15:30-0500 Systolic blood pressure 133 mm[Hg] Dot Connell MD Work Phone: 7(755)065-666864 [address] 06-25-2023 11:24-0500 Body height 180.3 cm Dot Connell MD Work Phone: 0(259)912-882564 [address] 06-25-2023 11:24-0500 Body mass index (BMI) [Ratio] 37.03 kg/m2 Dot Connell MD Work Phone: 7(010)949-007522 [place] [address] 06-25-2023 11:24-0500 Body weight 120.43 kg Dot Connell MD Work Phone: 8(698)771-086722 [place] [address] 06-15-2023 01:00-0500 Diastolic blood pressure 88 mm[Hg] Kaylinn Dokken [facility] 06-15-2023 01:00-0500 Heart rate 80 /min Kaylinn Dokken [facility] 06-15-2023 01:00-0500 Mean blood pressure 119 mm[Hg] Kaylinn Dokken [facility] 06-15-2023 01:00-0500 Respiratory rate 17 /min Kaylinn Dokken [facility] 06-15-2023 01:00-0500 SaO2% (BldA) [Mass fraction] 99 % Kaylinn Dokken [facility] 06-15-2023 01:00-0500 Systolic blood pressure 180 mm[Hg] Chapisn Dokken [facility] 06-15-2023 00:36-0500 Body temperature 97.88 [degF] Christineinn Dokken [facility] 06-15-2023 00:36-0500 Diastolic blood pressure 92 mm[Hg] Christineinn Dokken [facility] 06-15-2023 00:36-0500 Heart rate 78 /min Chapisn Dokken [facility] 06-15-2023 00:36-0500 Respiratory rate 18 /min Chapisn kken [facility] 06-15-2023 00:36-0500 SaO2% (BldA) [Mass fraction] 100 % Mohan Pinzon [facility] 06-15-2023 00:36-0500 Systolic blood pressure 188 mm[Hg] Chapisn Dokken [facility] 06-06-2023 08:30-0500 Body height 177.8 cm Nayan Ball Other [employer] Other 06-06-2023 08:30-0500 Body mass index (BMI) [Ratio] 37.3 kg/m2 Nayan Ball Other [employer] Other 06-06-2023 08:30-0500 Body weight 117.94 kg Nayan Ball Other [employer] Other 06-06-2023 08:30-0500 Diastolic blood pressure 80 mm[Hg] Nayan Ball Other [employer] Other 06-06-2023 08:30-0500 Respiratory rate 20 /min Nayan Ball Other [employer] Other 06-06-2023 08:30-0500 Systolic blood pressure 137 mm[Hg] Nayan Ball Other [facility] [employer] Other 05-30-2023 14:47-0500 Heart rate 70 /min Millie Timmis [facility] 05-30-2023 14:47-0500 SaO2% (BldA) [Mass fraction] 94 % Millie Timmis [facility] 05-30-2023 14:47-0500 Blood Pressure Location Millie Timmis [facility] 05-30-2023 14:47-0500 Diastolic blood pressure 81 mm[Hg] Millie Timmis [facility] 05-30-2023 14:47-0500 Mean blood pressure 105 mm[Hg] Millie Timmis [facility] 05-30-2023 14:47-0500 Respiratory rate 18 /min Millie Timmis [facility] 05-30-2023 14:47-0500 Systolic blood pressure 152 mm[Hg] Millie Timmis [facility] 05-30-2023 13:30-0500 Heart rate 60 /min Millie Timmis [facility] 05-30-2023 13:30-0500 SaO2% (BldA) [Mass fraction] 95 % Millie Timmis [facility] 05-30-2023 12:43-0500 Blood Pressure Location Millie Timmis [facility] 05-30-2023 12:43-0500 Diastolic blood pressure 84 mm[Hg] Millie Timmis [facility] 05-30-2023 12:43-0500 Heart rate 61 /min Millie Timmis [facility] 05-30-2023 12:43-0500 Mean blood pressure 114 mm[Hg] Millie Timmis [facility] 05-30-2023 12:43-0500 Respiratory rate 18 /min Millie Timmis [facility] 05-30-2023 12:43-0500 Systolic blood pressure 175 mm[Hg] Millie Timmis [facility] 05-30-2023 12:42-0500 SaO2% (BldA) [Mass fraction] 96 % Millie Timmis [facility] 05-30-2023 12:41-0500 Mean blood pressure 114 mm[Hg] Millie Timmis [facility] 05-30-2023 12:40-0500 Respiratory rate 18 /min Millie Timmis [facility] 05-30-2023 12:34-0500 Body temperature 97.52 [degF] Millie Timmis [facility] 05-30-2023 12:34-0500 Diastolic blood pressure 93 mm[Hg] Millie Timmis [facility] 05-30-2023 12:34-0500 Mean blood pressure 118 mm[Hg] Millie Timmis [facility] 05-30-2023 12:34-0500 Respiratory rate 10 /min Millie Timmis [facility] 05-30-2023 12:34-0500 Systolic blood pressure 167 mm[Hg] Millie Timmis [facility] 05-30-2023 12:23-0500 Mean blood pressure 114 mm[Hg] Millie Timmis [facility] 05-30-2023 12:23-0500 Respiratory rate 16 /min Millie Timmis [facility] 05-30-2023 12:12-0500 Mean blood pressure 118 mm[Hg] Millie Timmis [facility] 05-30-2023 11:50-0500 FIO2 50 1 Millie Timmis [facility] 05-30-2023 11:45-0500 Blood Pressure Location Millie Timmis [facility] 05-30-2023 11:45-0500 Body temperature 97.7 [degF] Millie Timmis [facility] 05-30-2023 11:40-0500 Respiratory rate 17 /min Millie Timmis [facility] 05-30-2023 09:01-0500 Heart rate 66 /min Millie Timmis [facility] 05-30-2023 09:00-0500 Body temperature 97.16 [degF] Millie Timmis [facility] 05-23-2023 08:42-0400 Diastolic blood pressure 80 mm[Hg] Millie Timmis [facility] 05-23-2023 08:42-0400 Heart rate 79 /min Millie Timmis [facility] 05-23-2023 08:42-0400 Mean blood pressure 112 mm[Hg] Millie Timmis [facility] 05-23-2023 08:42-0400 Systolic blood pressure 175 mm[Hg] Millie Timmis [facility] 05-23-2023 08:41-0400 Heart rate 80 /min Millie Timmis [facility] 05-23-2023 08:41-0400 SaO2% (BldA) [Mass fraction] 99 % Millie Timmis [facility] 05-23-2023 08:41-0400 Diastolic blood pressure 78 mm[Hg] Millie Timmis [facility] 05-23-2023 08:41-0400 Mean blood pressure 105 mm[Hg] Millie Timmis [facility] 05-23-2023 08:41-0400 Systolic blood pressure 160 mm[Hg] Millie Timmis [facility] 05-23-2023 08:40-0400 Respiratory rate 18 /min Millie Timmis [facility] 01-24-2023 10:45-0400 Body height 177.8 cm Nayan Ball Other [facility] [employer] Other 01-24-2023 10:45-0400 Body mass index (BMI) [Ratio] 37.96 kg/m2 Nayan Ball Other [facility] [employer] Other 01-24-2023 10:45-0400 Body weight 120.02 kg Nayan Ball Other [employer] [facility] [employer] Other 01-24-2023 10:45-0400 Diastolic blood pressure 85 mm[Hg] Nayan Ball Other [employer] Other 01-24-2023 10:45-0400 Respiratory rate 16 /min Nayan Ball Other [employer] Other 01-24-2023 10:45-0400 Systolic blood pressure 139 mm[Hg] Nayan Gee Other [employer] Other 06-17-2022 11:30-0500 Blood Pressure Location Andreina SANDOVALLEY [facility] 06-17-2022 11:30-0500 Body temperature 99.14 [degF] Andreina ESTRADA [facility] 06-17-2022 11:30-0500 Diastolic blood pressure 80 mm[Hg] Andreina ESTRADA [facility] 06-17-2022 11:30-0500 Heart rate 89 /min Andreina SANDOVALLEY [facility] 06-17-2022 11:30-0500 SaO2% (BldA) [Mass fraction] 97 % Andreina ESTRADA [facility] 06-17-2022 11:30-0500 Systolic blood pressure 136 mm[Hg] Andreina ESTRADA [facility] Encounters Encounter Date Encounter Type Care Provider Facility Start: 10-06-2024 End: 10-06-2024 ambulatory [facility] Work Phone: Start: 10-06-2024 End: 10-06-2024 Patient encounter procedure [facility] Work Phone: Start: 09-22-2024 End: 09-22-2024 Emergency department patient visit Umer Unger [facility] Start: 09-15-2024 End: 09-15-2024 Office outpatient visit 15 minutes Dot Melendez MD Work Phone: [facility] Comment on above: Inverted papilloma ( Primary Dx); Nasal obstruction Start: 09-15-2024 End: 09-15-2024 ambulatory [facility] Amb[facility] Start: 04-07-2024 End: 04-07-2024 ambulatory NAYAN GEE Facility:[facility] Start: 04-07-2024 End: 04-07-2024 Patient encounter procedure NAYAN GEE [facility] Start: 03-10-2024 End: 03-10-2024 Office outpatient visit 25 minutes Dot Melendez MD Work Phone: [facility] Comment on above: Inverted papilloma ( Primary Dx); Nasal obstruction Start: 03-10-2024 End: 03-10-2024 ambulatory [facility] Start: 02-06-2024 End: 02-06-2024 Subsequent hospital visit by physician Luciana [id number] 1 [facility] Comment on above: Inverted papilloma Start: 02-06-2024 End: 02-06-2024 ambulatory [facility] Start: 12-26-2023 End: 12-26-2023 ambulatory Zelalem Brink Facility:[facility] Start: 12-26-2023 End: 12-26-2023 Patient encounter procedure Zelalem Brink [facility] Start: 11-14-2023 End: 11-14-2023 ambulatory ISAI KRISTEN Facility:[facility] Start: 11-14-2023 End: 11-14-2023 Patient encounter procedure ISAI PETERSON [facility] Start: 11-05-2023 End: 11-05-2023 Office outpatient visit 25 minutes Dot Melendez MD Work Phone: [facility] Comment on above: Inverted papilloma ( Primary Dx) Start: 11-05-2023 End: 11-05-2023 ambulatory [facility] Ambulatory Start: 10-08-2023 End: 10-08-2023 ambulatory Nayan Gee Other [employer] Other Start: 10-08-2023 Telephone encounter Nayan Gee [facility] Start: 2023 End: 2023 ambulatory Nayan Gee Other [employer] Other Start: 2023 Telephone encounter Nayan Gee [facility] Start: 08-19-2023 End: 08-19-2023 ambulatory Nayan Gee Other [employer] Other Start: 08-19-2023 Telephone encounter Nayan Gee [facility] Start: 08-14-2023 End: 08-14-2023 Postop follow up visit related to original px Dot Melendez MD Work Phone: [facility] Comment on above: Inverted papilloma ( Primary Dx); Nasal obstruction Start: 07-30-2023 End: 07-30-2023 Postop follow up visit related to original px Dot Melendez MD Work Phone: [facility] Comment on above: Inverted papilloma ( Primary Dx); Nasal obstruction Start: 07-26-2023 End: 07-26-2023 ambulatory DOT MELENDEZ V [facility] Start: 07-26-2023 End: 07-26-2023 Subsequent hospital visit by physician Dot Melendez MD Work Phone: [facility] [place] Comment on above: Acute postoperative pain (Primary Dx); Inverted papilloma Start: 07-10-2023 End: 07-10-2023 ambulatory NAYAN Chadwick GERARD [facility] Start: 07-10-2023 End: 07-10-2023 ambulatory DOT MELENDZE V [facility] Start: 07-03-2023 End: 07-03-2023 ambulatory NAYAN Chadwick GERARD [facility] Start: 06-25-2023 End: 06-25-2023 ambulatory NAYAN GEE [facility] Start: 06-25-2023 End: 06-25-2023 Office outpatient new 30 minutes Dot Melendez MD Work Phone: [facility] Comment on above: Inverted papilloma ( Primary Dx); Nasal obstruction Start: 06-15-2023 End: 06-15-2023 Emergency department patient visit Mohan Pinzon [facility] Start: 06-07-2023 Telephone encounter Nayan CAMARILLO [facility] Start: 06-07-2023 End: 06-07-2023 ambulatory MILLIE H TIMMIS Not Available Start: 06-06-2023 End: 06-06-2023 ambulatory Nayan Gee Other [employer] Other Start: 06-06-2023 Office outpatient vi sit 25 minutes Nayan Gee [facility] Start: 06-03-2023 End: 06-03-2023 ambulatory NAYAN GEE Facility:[facility] Start: 06-03-2023 End: 06-03-2023 Patient encounter procedure NAYAN GEE [facility] Start: 05-30-2023 Telephone encounter Nayan CAMARILLO [facility] Start: 05-30-2023 End: 05-30-2023 Admission to same day surgery center Millie H Timmis [facility] Start: 05-30-2023 End: 05-30-2023 ambulatory Millie H Timmis [facility] [employer] Other Start: 05-23-2023 End: 05-23-2023 ambulatory Millie H Timmis Facility:[facility] Start: 05-23-2023 End: 05-23-2023 Patient encounter procedure Millie H Timmis [facility] Start: 03-21-2023 End: 03-21-2023 ambulatory Nayan Gee Other [facility] [employer] Other Start: 03-21-2023 Telephone encounter Nayan CAMARILLO [facility] Start: 03-18-2023 End: 03-18-2023 Patient encounter procedure Millie Harrison [facility] Start: 02-01-2023 End: 02-01-2023 ambulatory Nayan Gee Other [employer] [facility] [employer] Other Start: 02-01-2023 Telephone encounter Nayan CAMARILLO [facility] Start: 01-31-2023 End: 01-31-2023 ambulatory Nayan Gee Other [facility] [employer] Other Start: 01-31-2023 Telephone encounter Nayan CAMARILLO [facility] Start: 01-31-2023 End: 01-31-2023 Patient encounter procedure NAYAN GEE [facility] Start: 01-24-2023 (WellA) Well Adult Nayan Gee [facility] Start: 01-24-2023 End: 01-24-2023 ambulatory Nayan Gee Other [facility] [employer] Other Start: 01-24-2023 Encounter for genera l adult medical examination without abnormal findings Nayan Gee [facility] Start: 06-17-2022 End: 06-17-2022 Patient encounter procedure Andreina ESTRADA [facility] Start: 03-30-[address] NAYAN GEE Facili ty:[facility] Start: 12-12-2021 End: 12-13-[address] NAYAN GEE Facility:[facility] Start: 08-22-2021 End: 08-23-[address] NAYAN GEE Facility:[facility] Start: 08-21-2021 End: 08-22-[address] NAYAN GEE Facility:[facility] Start: 08-14-2021 End: 08-15-[address] NAYAN GEE Facility:[facility] Procedures Date Procedure Procedure Detail Performing Clinician Start: 03-10-2024 Follow-up visit Follow-up DOT MELENDEZ V Start: 02-06-2024 Ct maxillofacial w/o contrast material Dot Melendez MD Work Phone: Start: 07-26-2023 PULSE OXIMETRY, CONTINUOUS RONALDRAGINI MELENDEZ V Start: 07-26-2023 Glucose [Mass/volume ] in Serum or Plasma JOSETRENTON MELENDEZ V Start: 07-26-2023 SURGICAL PATHOLOGY EXAM DOT AL V Start: 07-26-2023 DISCHARGE PATIENT RUBYJAN V Start: 07-26-2023 PULSE OXIMETRY, CONTINUOUS Cat S Amparo SRINIVASAN Work Phone: Start: 07-26-2023 Glucose quantitative blood xcpt reagent strip Dot Melendez MD Work Phone: Start: 07-26-2023 Glucose [Mass/volume ] in Serum or Plasma DOT MELENDEZ V Start: 07-26-2023 Glucose quantitative blood xcpt reagent strip Dot Melendez MD Work Phone: Start: 07-10-2023 Basic metabolic 2000 panel - Serum or Plasma DOT MELENDEZ V Start: 07-10-2023 CBC panel - Blood by Automated count JOSETRENTON MELENDEZ V Start: 07-10-2023 TYPE AND SCREEN DOT MELENDEZ V Start: 07-10-2023 CT SINUS WITH CONTRA ST VOLUMETRIC SURGICAL PLANNING DOT MELENDEZ V Start: 06-25-2023 Creatinine [Mass/vol ume] in Serum or Plasma DOT MELENDEZ V Start: 07-22-2022 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 Arden Hardwick Start: 03-09-2020 Lipid 1996 panel - S jimmie or Plasma Dot Connell MD Work Phone: Start: 10-07-2018 Arthroplasty of knee Toshia ESTRADA Appendectomy Andreina SANDOVALLEY Herniated structure (morphologic abnormality) Andreina ESTRADA Comment on above: many years ago, umbi lical History of operative procedure on knee Nayan Ball Other Neoplasm (morphologi c abnormality) Zelalem Brink Pilonidal cyst (morp hologic abnormality) Andreina SANDOVALLEY Plan of Treatment Date Care Activity Detail Author Start: 2030 RSV patient s and/or patients aged 60+ years (1 - 1-dose 60+ series) RSV patients and/or patients aged 60+ years (1 - 1-dose 60+ series) [facility] Start: 03-16-2025 End: 03-16-2025 Patient encounter procedure 03/16/2025 10:00 AM EDT Office Visit [facility] [address] [place] [address] [place] [address] [address] Department [place] [address] [facility] Start: 03-09-2025 Lipid panel Lipid Panel [facility] Start: 02-16-2025 End: 02-16-2025 Patient encounter procedure 02/16/2025 10:00 AM EDT Appointment [facility] [address] [place] [address] [facility] Start: 09-15-2024 End: 09-15-2025 CT Sinuses WO contrast CT sinus wo IV contrast volumetric surgical planning Imaging Routine Inverted papilloma Expected: 09/15/2024, Expires: 09/15/2025 [facility] Service Area Work Phone: Comment on above: Expected: 09/15/2024 , Expires: 09/15/2025 Start: 09-08-2024 End: 09-08-2024 Patient encounter procedure 09/08/2024 9:30 AM EST Office Visit [facility] [address] [place] [phone] [place] [address] [address] Department [place] [address] [facility] Start: 03-22-2024 COVID-19 Vaccine () COVID-19 Vaccine () [facility] Start: 03-22-2024 Influenza vaccination Influenza Vacc ine (#1) [facility] Start: 03-10-2024 End: 03-10-2024 Patient encounter procedure 03/10/2024 9:30 AM EDT Office Visit [facility] [address] [place] [phone] [place] [address] [address] Department [place] [address] [facility] Start: 02-06-2024 End: 02-06-2024 Patient encounter procedure 02/06/2024 9:00 AM EDT Appointment [facility] [address] [place] [phone] [facility] Start: 11-05-2023 End: 11-04-2024 CT Sinuses WO contrast CT sinuss wo IV contrast volumetric surgical planning Imaging Routine Inverted papilloma Expected: 11/05/2023, Expires: 11/04/2024 [facility] Service Area Work Phone: Comment on above: Expected: 11/05/2023 , Expires: 11/04/2024 Start: 10-15-2023 End: 10-15-2023 Patient encounter procedure 10/15/2023 9:00 AM EDT Office Visit [facility] [address] [place] [phone] [place] [address] [address] Department [place] [address] [facility] Start: 08-14-2023 End: 08-14-2023 Patient encounter procedure 08/14/2023 10:45 AM EST Office Visit [facility] [address] [place] [phone] [place] [address] [address] Department [place] [address] [facility] Start: 08-06-2023 End: 08-06-2023 Patient encounter procedure 08/06/2023 10:30 AM EST Office Visit [facility] [address] [place] [address] [place] [address] [address] Department [place] [address] [facility] Start: 07-30-2023 End: 07-30-2023 Patient encounter procedure 07/30/2023 11:00 AM EST Office Visit [facility] [address] [place] [address] [place] [address] [address] Department [place] [address] [facility] Start: 07-23-2023 End: 07-23-2023 Patient encounter procedure 07/23/2023 10:15 AM EST Office Visit [facility] [address] [place] [phone] [place] [address] [address] Department [place] [address] [facility] Start: 07-10-2023 End: 07-10-2023 Professional / ancillary services management 07/10/2023 10:30 AM EST Ancillary Procedure [facility] [address] [place] [phone] [facility] Start: 06-25-2023 End: 06-25-2024 Creatinine [Mass/volume] in Serum or Plasma [facility] Work Phone: Comment on above: Expected: 06/25/2023 (Approximate), Expires: 06/25/2024 Start: 06-25-2023 End: 06-25-2024 CT Maxillofacial region WO and W contrast IV CT sinus w and wo IV contrast Imaging Routine Inverted papilloma Expected: 06/25/2023, Expires: 06/25/2024 [facility] Service Area Work Phone: Comment on above: Expected: 06/25/2023 , Expires: 06/25/2024 Start: 03-22-2023 COVID-19 Vaccine ( season) COVID-19 Vaccine ( season) [facility] Start: 03-22-2023 COVID-19 Vaccine ( season) COVID-19 Vaccine ( season) [facility] Start: 03-22-2023 Influenza vaccination Influenza Vacc ine (#1) [facility] Start: 08-22-2021 COVID-19 Vaccine (5 - Pfizer series) COVID-19 Vaccine (5 - Pfizer series) [facility] Start: 03-09-2021 Lipid panel Lipid Panel [facility] Start: 2020 Zoster Vaccines (1 o f 2) Zoster Vaccines (1 of 2) [facility] Start: 06-09-2020 Hemoglobin A1c measurement Diabetes: Hemoglobin A1C [facility] Start: 08-14-2009 MMR Vaccines (1 of 1 - Standard series) MMR Vaccines (1 of 1 - Standard series) [facility] Start: 1992 DTaP/Tdap/Td Vaccine s (1 - Tdap) DTaP/Tdap/Td Vaccines (1 - Tdap) [facility] Start: 1989 Hepatitis B Vaccines (1 of 3 - 19+ 3-dose series) Hepatitis B Vaccines (1 of 3 - 19+ 3-dose series) [facility] Start: 1989 Pneumococcal vaccination Pneumococcal Vaccine (1 of 2 - PCV) [facility] Start: 1989 Urine screening for protein Diabetes: Urine Protein Screening [facility] Start: 1988 Hepatitis C screening Hepatitis C Sc reening [facility] Start: 1980 Diabetic foot examination Diabetes: Foot Exam [facility] Start: 1980 Glaucoma screening Diabetes: R etinopathy Screening [facility] Start: 1976 Pneumococcal Vaccine : Pediatrics (0 to 5 Years) and At-Risk Patients (6 to 64 Years) (1 - PCV) Pneumococcal Vaccine: Pediatrics (0 to 5 Years) and At-Risk Patients (6 to 64 Years) (1 - PCV) [facility] Start: 1976 Pneumococcal Vaccine : Pediatrics (0 to 5 Years) and At-Risk Patients (6 to 64 Years) (1 of 2 - PCV) Pneumococcal Vaccine: Pediatrics (0 to 5 Years) and At-Risk Patients (6 to 64 Years) (1 of 2 - PCV) [facility] Start: 1970 Hepatitis B Vaccines (1 of 3 - 3-dose series) Hepatitis B Vaccines (1 of 3 - 3-dose series) [facility] Start: 1970 HIV screening HIV Screening [facility] Start: 1970 Screening for malign ant neoplasm of colon [facility] Start: 1970 Urine screening for protein Diabetes: Urine Protein Screening [facility] Start: 1970 Yearly Adult Physical Yearly Adult P hysical [facility] Surgical pathology study [facility] Service Area Work Phone: Comment on above: Release Upon Orderin g for 1 Occurrences starting 07/26/2023, 1 completed [facility] Immunizations Immunization Date Immunization Notes Care Provider Hilda langston 09-22-2024 tetanus toxoid, reduced diphtheria toxoid, and acellular pertussis vaccine, adsorbed; Translations: [Boostrix (Tdap)] Umer Unger [facility] 04-02-2024 influenza, seasonal, injectable, preservative free [facility] 06-06-2023 influenza, injectabl e, quadrivalent, preservative free Nayan Gee Other [facility] 06-06-2023 influenza virus vaccine, unspecified formulation [address] Work Phone: 06-27-2021 COVID-19 Vaccine Pfizer - Documentation Purposes Only Nayan Gee Other [facility] 06-27-2021 influenza virus vaccine, split virus (incl. purified surface antigen) Nayan Gee Other [employer] Other 06-27-2021 influenza virus vaccine, unspecified formulation Dot Connell MD Work Phone: [facility] 10-28-2020 SARS-CoV-2 (COVID-19 ) mRNA [id number] eROI [facility] 10-14-2020 COVID-19 Vaccine Pfizer - Documentation Purposes Only Nayan Gee Other [facility] 10-07-2020 SARS-CoV-2 (COVID-19 ) mRNA [id number] eROI [facility] 09-23-2020 SARS-CoV-2 (COVID-19 ) mRNA [id number] eROI [facility] Payers Date Payer Category Payer Blue [employer] Blue [employer] Member Subscriber Plan / Payer (Effective 2018-Present) Name: Parveen Lee Relation to Subscriber: Self Name: Parveen Lee Payer ID: [id number] (NAIC) Type: Not on file Address: [id number] [id number] 2018 Unknown ANTHEM ANTHEM P [id number] 2018-Present [address] [place] [address] [id number] 1970 Unknown [id number] 2.16.840.1.469946.3.579. 2.593 1970 Unknown [id number] 2.16.840.1.060616.3.579. 2.593 1970 Unknown [id number] 2.16.840.1.525407.3.579. 2.593 1970 Unknown [id number] 2.16.840.1.126750.3.579. 2.593 1970 Unknown [id number] 2.16.840.1.133082.3.579. 2.593 1970 Unknown [id number] 2.16.840.1.893919.3.579. 2.1259 1970 Unknown [id number] 2.16.840.1.220226.3.579. 2.1245 1970 Unknown [id number] 2.16.840.1.893986.3.579. 2.1245 1970 Unknown [id number] 2.16.840.1.071505.3.579. 2.1245 1970 Unknown [id number] 2.16.840.1.939159.3.579. 2.1245 1970 Unknown [id number] 2.16.840.1.401957.3.579. 2.124 1970 Unknown [id number] 2.16.840.1.455869.3.579. 2.1244 1970 Unknown [id number] 2.16.840.1.932038.3.579. 2.727 1970 Unknown [id number] 2.16.840.1.367432.3.579. 2.727 1970 Unknown [id number] 2.16.840.1.225404.3.579. 2. 1970 Unknown [id number] 2.16.840.1.803929.3.579. 2. 1970 Unknown [id number] 2.16.840.1.631918.3.579. 2.7 1970 Unknown [id number] 2.16.840.1.487276.3.579. 2.727 1970 Unknown [id number] 2.16.840.1.828954.3.579. 2.7 1970 Unknown [id number] 2.16.840.1.184864.3.579. 2.1243 1970 Unknown [id number] 2.16.840.1.575768.3.579. 2.1243 1970 Unknown [id number] 2.16.840.1.355144.3.579. 2.1243 1970 Unknown [id number] 2.16.840.1.911945.3.579. 2.727 1959 Self-pay [id number] 1959 Unknown [id number] Social History Date Type Detail Facility Tobacco Unknown if ever smoked [facility] Comment on above: denies Tobacco smoking status No Smokin g Status Entered [facility] Start: 06-25-2023 End: 11-05-2023 Sex Assigned At Male [facility] Start: 06-06-2023 End: 06-25-2023 Tobacco smoking status NHIS Never smoked tobacco [facility] Work Phone: Comment on above: denies Start: 06-25-2023 Tobacco use and exposure Smokeless tobacco non-user [facility] Work Phone: Start: 06-25-2023 End: 09-18-2024 Alcohol intake Current drinker of alcohol (finding) [facility] Work Phone: Start: 06-25-2023 End: 11-05-2023 History of Social function [facility] Work Phone: Start: 1970 Sex Assigned At Not on file [facility] Work Phone: Start: 06-15-2023 End: 09-15-2024 Exposure to SARS-CoV-2 (event) Not sure [facility] Tobacco smoking status Never [facility] Comment on above: denies Start: 10-06-2024 Sex Male (finding) [facility] Start: 1970 Sex Assigned At Male [facility] Medical Equipment Procedure Code Equipment Code Equipment Origin al Text Equipment Identifier Dates Arthroplasty, knee, total, minimally invasive CEMENT BONE 1X40 RADIOPAQUE FDA Start: 09-11-2018 Arthroplasty, knee, total, minimally invasive CEMENT BONE 1X40 RADIOPAQUE FDA Start: 09-11-2018 Arthroplasty, knee, total, minimally invasive COMPONENT TIBIAL STEMMED FDA Start: 09-11-2018 Arthroplasty, knee, total, minimally invasive FEMUR PERSONA RIGHT SIZE 8 FDA Start: 09-11-2018 Arthroplasty, knee, total, minimally invasive PATELLA POLY 32 MM FDA Start: 09-11-2018 Arthroplasty, knee, total, minimally invasive STEM NEXGEN OFFSET EXT 12MM FDA Start: 09-11-2018 Arthroplasty, knee, total, minimally invasive SURFACE ARTICULAR LPS FLEX FDA Start: 09-11-2018 Arthroplasty, knee, total, minimally invasive TIBIAL BLOCK SIZE 4 10MM FDA Start: 09-11-2018 Functional Status Date Assessment Result Facility 09-22-2024 Functional Status N/A [facility] 12-26-2023 Functional Status N/A [facility] 11-14-2023 Functional Status N/A [facility] 06-15-2023 Functional Status N/A [facility] 05-23-2023 Functional Status No [facility] 06-17-2022 Functional Status N/A [facility] Clinical Notes 06-17-2022 to 09-22-2024 Dot Connell MD - 09/15/2024 2:45 PM Amparo Connell MD - 03/10/2024 9:30 AM Juanito Connell MD - 11/05/2023 9:45 AM EDT Note Date & Type Note Facility 09-22-2024 Hospital Discharg e instructions Patient Education 09/22/2024 17:20:53 Wound Care, Adult Wound Care, Adult Taking care of your wound properly can help to prevent pain, infection, and scarring. It can also help your wound heal more quickly. Follow instructions from your health care provider about how to care for your wound. Supplies needed: Soap and water. Wound cleanser, saline, or germ-free (sterile) water. Gauze. If needed, a clean bandage (dressing) or other type of wound dressing material to cover or place in the wound. Follow your health care provider's instructions about what dressing supplies to use. Cream or topical ointment to apply to the wound, if told by your health care provider. How to care for your wound Cleaning the wound Ask your health care provider how to clean the wound. This may include: Using mild soap and water, a wound cleanser, saline, or sterile water. Using a clean gauze to pat the wound dry after cleaning it. Do not rub or scrub the wound. Dressing care Wash your hands with soap and water for at least 20 seconds before and after you change the dressing. If soap and water are not available, use hand room maid. Change your dressing as told by your health care provider. This may include: ?Cleaning or rinsing out (irrigating) the wound. ?Application of cream or topical ointment, if told by your health care provider. ?Placing a dressing over the wound or in the wound (packing). ?Covering the wound with an outer dressing. Leave stitches (sutures), chelo, skin glue, or adhesive strips in place. These skin closures may need to stay in place for 2 weeks or longer. If adhesive strip edges start to loosen and curl up, you may trim the loose edges. Do not remove adhesive strips completely unless your health care provider tells you to do that. Ask your health care provider when you can leave the wound uncovered. Checking for infection Check your wound area every day for signs of infection. Check for: More redness, swelling, or pain. Fluid or blood. Warmth. Pus or a bad smell. Follow these instructions at home Medicines If you were prescribed an antibiotic medicine, cream, or ointment, take or apply it as told by your health care provider. Do not stop using the antibiotic even if your condition improves. If you were prescribed pain medicine, take it 30 minutes before you do any wound care or as told by your health care provider. Take drsm-iuy-[id number] and prescription medicines only as told by your health care provider. Eating and drinking Eat a diet that includes protein, vitamin A, vitamin C, and other nutrient-rich foods to help the wound heal. ?Foods rich in protein include meat, fish, eggs, dairy, beans, and nuts. ?Foods rich in vitamin A include carrots and dark green, leafy vegetables. ?Foods rich in vitamin C include citrus fruits, tomatoes, broccoli, and peppers. Drink enough fluid to keep your urine pale yellow. General instructions Do not take baths, swim, or use a hot tub until your health care provider approves. Ask your health care provider if you may take showers. You may only be allowed to take sponge baths. Do not scratch or pick at the wound. Keep it covered as told by your health care provider. Return to your normal activities as told by your health care provider. Ask your health care provider what activities are safe for you. Protect your wound from the sun when you are outside for the first 6 months, or for as long as told by your health care provider. Cover up the scar area or apply sunscreen that has an SPF of at least 30. Do not use any products that contain nicotine or tobacco. These products include cigarettes, chewing tobacco, and vaping devices, such as e-cigarettes. If you need help quitting, ask your health care provider. Keep all follow-up visits. This is important. Contact a health care provider if: You received a tetanus shot and you have swelling, severe pain, redness, or bleeding at the injection site. Your pain is not controlled with medicine. You have any of these signs of infection: ?More redness, swelling, or pain around the wound. ?Fluid or blood coming from the wound. ?Warmth coming from the wound. ?A fever or chills. You are nauseous or you vomit. You are dizzy. You have a new rash or hardness around the wound. Get help right away if: You have a red streak of skin near the area around your wound. Pus or a bad smell coming from the wound. Your wound has been closed with chelo, sutures, skin glue, or adhesive strips and it begins to open up and separate. Your wound is bleeding, and the bleeding does not stop with gentle pressure. These symptoms may represent a serious problem that is an emergency. Do not wait to see if the symptoms will go away. Get medical help right away. Call your local emergency services (911 in the [place] Do not drive yourself to the hospital. Summary Always wash your hands with soap and water for at least 20 seconds before and after changing your dressing. Change your dressing as told by your health care provider. To help with healing, eat foods that are rich in protein, vitamin A, vitamin C, and other nutrients. Check your wound every day for signs of infection. Contact your health care provider if you think that your wound is infected. This information is not intended to replace advice given to you by your health care provider. Make sure you discuss any questions you have with your health care provider. Document Revised: 11/14/2021 Document Reviewed: 11/14/2021 [employer] Patient Education 2023 [employer]. Follow Up Care 09/22/2024 16:07:49 With:NAYAN GEE Address: [address] [place] [phone] (1) When:09/25/2024 16:59:28 [facility] 09-22-2024 Note ED Patient Education Note Dermatology Wound Care, Adult Taking care of your wound properly can help to prevent pain, infection, and scarring. It can also help your wound heal more quickly. Follow instructions from your health care provider about how to care for your wound. Supplies needed: ??? Soap and water. ??? Wound cleanser, saline, or germ-free (sterile) water. ??? Gauze. ??? If needed, a clean bandage (dressing) or other type of wound dressing material to cover or place in the wound. Follow your health care provider's instructions about what dressing supplies to use. ??? Cream or topical ointment to apply to the wound, if told by your health care provider. How to care for your wound Cleaning the wound Ask your health care provider how to clean the wound. This may include: ??? Using mild soap and water, a wound cleanser, saline, or sterile water. ??? Using a clean gauze to pat the wound dry after cleaning it. Do not rub or scrub the wound. Dressing care ??? Wash your hands with soap and water for at least 20 seconds before and after you change the dressing. If soap and water are not available, use hand room maid. ??? Change your dressing as told by your health care provider. This may include: ? Cleaning or rinsing out (irrigating) the wound. ? Application of cream or topical ointment, if told by your health care provider. ? Placing a dressing over the wound or in the wound (packing). ? Covering the wound with an outer dressing. ??? Leave stitches (sutures), chelo, skin glue, or adhesive strips in place. These skin closures may need to stay in place for 2 weeks or longer. If adhesive strip edges start to loosen and curl up, you may trim the loose edges. Do not remove adhesive strips completely unless your health care provider tells you to do that. ??? Ask your health care provider when you can leave the wound uncovered. Checking for infection Check your wound area every day for signs of infection. Check for: ??? More redness, swelling, or pain. ??? Fluid or blood. ??? Warmth. ??? Pus or a bad smell. Follow these instructions at home Medicines ??? If you were prescribed an antibiotic medicine, cream, or ointment, take or apply it as told by your health care provider. Do not stop using the antibiotic even if your condition improves. ??? If you were prescribed pain medicine, take it 30 minutes before you do any wound care or as told by your health care provider. ??? Take eqql-ghw-ysxezla and prescription medicines only as told by your health care provider. Eating and drinking ??? Eat a diet that includes protein, vitamin A, vitamin C, and other nutrient-rich foods to help the wound heal. ? Foods rich in protein include meat, fish, eggs, dairy, beans, and nuts. ? Foods rich in vitamin A include carrots and dark green, leafy vegetables. ? Foods rich in vitamin C include citrus fruits, tomatoes, broccoli, and peppers. ??? Drink enough fluid to keep your urine pale yellow. General instructions ??? Do not take baths, swim, or use a hot tub until your health care provider approves. Ask your health care provider if you may take showers. You may only be allowed to take sponge baths. ??? Do not scratch or pick at the wound. Keep it covered as told by your health care provider. ??? Return to your normal activities as told by your health care provider. Ask your health care provider what activities are safe for you. ??? Protect your wound from the sun when you are outside for the first 6 months, or for as long as told by your health care provider. Cover up the scar area or apply sunscreen that has an SPF of at least 30. ??? Do not use any products that contain nicotine or tobacco. These products include cigarettes, chewing tobacco, and vaping devices, such as e-cigarettes. If you need help quitting, ask your health care provider. ??? Keep all follow-up visits. This is important. Contact a health care provider if: ??? You received a tetanus shot and you have swelling, severe pain, redness, or bleeding at the injection site. ??? Your pain is not controlled with medicine. ??? You have any of these signs of infection: ? More redness, swelling, or pain around the wound. ? Fluid or blood coming from the wound. ? Warmth coming from the wound. ? A fever or chills. ??? You are nauseous or you vomit. ??? You are dizzy. ??? You have a new rash or hardness around the wound. Get help right away if: ??? You have a red streak of skin near the area around your wound. ??? Pus or a bad smell coming from the wound. ??? Your wound has been closed with chelo, sutures, skin glue, or adhesive strips and it begins to open up and separate. ??? Your wound is bleeding, and the bleeding does not stop with gentle pressure. These symptoms may represent a serious problem that is an emergency. Do not wait to see if the symptoms will go away. Get medical help right away. Call your lo (more content not included)... [facility] 09-15-2024 History of Presen t illness Narrative Chief Complaint: Follow-up inverted papilloma Referring Provider: No ref. provider found History of Present Illness: Parveen Lee is a 54 y.o. male, presenting for follow-up for inverted papilloma. Since his last visit he has had no symptoms. ? Review of Systems: Review of symptoms was negative except for those stated including Cardiopulmonary, Genitourinary, Gastrointestinal, Psychological, Sleep pattern, Endocrine, Eyes, Neurologic, Musculoskeletal, Skin, Hematologic/Lymphatic and Allergic/Immunologic. Medical History: I have reviewed the patient's updated past medical history, surgical history, family history, social history, as well as current medications and allergies as of 09/15/2024. Changes to these items have been updated and marked as reviewed in the electronic medical record. Physical Exam: Vitals: height is 1.803 m (5' 11 ) and weight is 119 kg (261 lb 12.8 oz). General: Patient doing well overall and is in no apparent distress. Psych: Pleasant affect, and answers questions appropriately. Head & Face: Symmetric facial movements Eyes: Pupils equal, round, reactive. Extraocular movements intact without gaze restrictions or nystagmus. No epiphora. Ears: External auditory canals are normal. Tympanic membranes are clear. No middle ear effusion is seen. All middle ear landmarks are normal. Nose: Anterior rhinoscopy revealed normal sinonasal mucosa. More posterior areas of the nasal cavity could not be completely examined. Oral Cavity/Oropharynx: Without lesions or masses to visual exam. Neck: Supple without lymphadenopathy. Lungs: Non-labored, and without evidence of stridor. Cardiac: Pulses are strong, well-perfused. Extremities: Without gross evidence of clubbing, cyanosis, or edema. Neuro: Cranial nerves II-XII grossly intact; Intact facial movements. Procedure: Rigid nasal endoscopy (09993) Pre-procedure diagnosis/Indication for procedure: To evaluate areas not visualized on anterior rhinoscopy Anesthesia: None Description: A 0-degree 3-mm rigid nasal endoscope was used to examine the left and right nasal cavities. The nasal valve areas were examined for abnormalities or collapse. The inferior and middle turbinates were evaluated. The middle and superior meatuses, and the sphenoethmoid recesses were examined and inspected for mucopurulence and polyps. Once the endoscope was withdrawn, the patient was noted to have tolerated the procedure well without complications and was returned to ambulatory status. Findings: The surgical cavity is clear and well mucosalized. No evidence of any residual inverted papilloma. Angled endoscope was used to visualize the maxillary sinus which was also clear. He tolerated the procedure well. Assessment: Parveen Lee is a 54 y.o. 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 No evidence of disease. Plan: Parveen continues to do well status post endoscopic endonasal resection of a right-sided inverted papilloma. He had follow-up CT imaging which demonstrates no evidence of disease. He will follow-up with me in [address] and in 12 months for routine endoscopy. Dot Melendez MD, M.Eng. Administrative Support Assistant of Otolaryngology - Head & Neck Surgery Division of Rhinology and Endoscopic Skull Base Surgery [facility] documented in this encounter [facility] Work Phone: 03-10-2024 History of Presen t illness Narrative Chief Complaint: Follow-up inverted papilloma Referring Provider: No ref. provider found History of Present Illness: Parveen Lee is a 53 y.o. male, presenting for follow-up for inverted papilloma. Since his last visit he has had no symptoms. He had a CT scan which I reviewed in depth today. It demonstrates previous endoscopic surgery and medial maxillectomy on the right side. No evidence of any residual or recurrent tumor. The sinonasal mucosa appears healthy. ? Review of Systems: Review of symptoms was negative except for those stated including Cardiopulmonary, Genitourinary, Gastrointestinal, Psychological, Sleep pattern, Endocrine, Eyes, Neurologic, Musculoskeletal, Skin, Hematologic/Lymphatic and Allergic/Immunologic. Medical History: I have reviewed the patient's updated past medical history, surgical history, family history, social history, as well as current medications and allergies as of 03/10/2024. Changes to these items have been updated and marked as reviewed in the electronic medical record. Physical Exam: Vitals: height is 1.803 m (5' 11 ) and weight is 118 kg (261 lb). General: Patient doing well overall and is in no apparent distress. Psych: Pleasant affect, and answers questions appropriately. Head & Face: Symmetric facial movements Eyes: Pupils equal, round, reactive. Extraocular movements intact without gaze restrictions or nystagmus. No epiphora. Ears: External auditory canals are normal. Tympanic membranes are clear. No middle ear effusion is seen. All middle ear landmarks are normal. Nose: Anterior rhinoscopy revealed normal sinonasal mucosa. More posterior areas of the nasal cavity could not be completely examined. Oral Cavity/Oropharynx: Without lesions or masses to visual exam. Neck: Supple without lymphadenopathy. Lungs: Non-labored, and without evidence of stridor. Cardiac: Pulses are strong, well-perfused. Extremities: Without gross evidence of clubbing, cyanosis, or edema. Neuro: Cranial nerves II-XII grossly intact; Intact facial movements. Procedure: Rigid nasal endoscopy ([id number]) Pre-procedure diagnosis/Indication for procedure: To evaluate areas not visualized on anterior rhinoscopy Anesthesia: None Description: A 0-degree 3-mm rigid nasal endoscope was used to examine the left and right nasal cavities. The nasal valve areas were examined for abnormalities or collapse. The inferior and middle turbinates were evaluated. The middle and superior meatuses, and the sphenoethmoid recesses were examined and inspected for mucopurulence and polyps. Once the endoscope was withdrawn, the patient was noted to have tolerated the procedure well without complications and was returned to ambulatory status. Findings: The surgical cavity is clear and well mucosalized. No evidence of any residual inverted papilloma. Angled endoscope was used to visualize the maxillary sinus which was also clear. He tolerated the procedure well. Assessment: Parveen Lee is a 53 y.o. 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 No evidence of disease. Plan: Parveen continues to do well status post endoscopic endonasal resection of a right-sided inverted papilloma. He had follow-up CT imaging which demonstrates no evidence of disease. He will follow-up with me in 6 months for routine endoscopy and in 12 months for endoscopy with CT scan. Dot Melendez MD, M.Eng. Administrative Support Assistant of Otolaryngology - Head & Neck Surgery Division of Rhinology and Endoscopic Skull Base Surgery [facility] documented in this encounter [facility] Work Phone: 12-26-2023 Hospital Discharg e instructions Patient Education 12/26/2023 13:27:20 Upper Respiratory Infection, Adult, Thkp-[id number] Upper Respiratory Infection, Adult An upper respiratory infection (URI) affects the nose, throat, and upper airways that lead to the lungs. The most common type of URI is often called the common cold. URIs usually get better on their own, without medical treatment. What are the causes? A URI is caused by a germ (virus). You may catch these germs by: Breathing in droplets from an infected person's cough or sneeze. Touching something that has the germ on it (is contaminated) and then touching your mouth, nose, or eyes. What increases the risk? You are more likely to get a URI if: You are very young or very old. You have close contact with others, such as at work, school, or a health care facility. You smoke. You have long-term (chronic) heart or lung disease. You have a weakened disease-fighting system (immune system). You have nasal allergies or asthma. You have a lot of stress. You have poor nutrition. What are the signs or symptoms? Runny or stuffy (congested) nose. Cough. Sneezing. Sore throat. Headache. Feeling tired (fatigue). Fever. Not wanting to eat as much as usual. Pain in your forehead, behind your eyes, and over your cheekbones (sinus pain). Muscle aches. Redness or irritation of the eyes. Pressure in the ears or face. How is this treated? URIs usually get better on their own within 7 10 days. Medicines cannot cure URIs, but your doctor may recommend certain medicines to help relieve symptoms, such as: Bnkd-owk-ltzjonc cold medicines. Medicines to reduce coughing (cough suppressants). Coughing is a type of defense against infection that helps to clear the nose, throat, windpipe, and lungs (respiratory system). Take these medicines only as told by your doctor. Medicines to lower your fever. Follow these instructions at home: Activity Rest as needed. If you have a fever, stay home from work or school until your fever is gone, or until your doctor says you may return to work or school. ?You should stay home until you cannot spread the infection anymore (you are not contagious). ?Your doctor may have you wear a face mask so you have less risk of spreading the infection. Relieving symptoms Rinse your mouth often with salt water. To make salt water, dissolve 1 tsp (3 6 g) of salt in 1 cup (237 mL) of warm water. Use a cool-mist humidifier to add moisture to the air. This can help you breathe more easily. Eating and drinking Drink enough fluid to keep your pee (urine) pale yellow. Eat soups and other clear broths. General instructions Take bogl-rtn-zefausz and prescription medicines only as told by your doctor. Do not smoke or use any products that contain nicotine or tobacco. If you need help quitting, ask your doctor. Avoid being where people are smoking (avoid secondhand smoke). Stay up to date on all your shots (immunizations), and get the flu shot every year. Keep all follow-up visits. How to prevent the spread of infection to others Wash your hands with soap and water for at least 20 seconds. If you cannot use soap and water, use hand room maid. Avoid touching your mouth, face, eyes, or nose. Cough or sneeze into a tissue or your sleeve or elbow. Do not cough or sneeze into your hand or into the air. Contact a doctor if: You are getting worse, not better. You have any of these: ?A fever or chills. ?Brown or red mucus in your nose. ?Yellow or brown fluid (discharge)coming from your nose. ?Pain in your face, especially when you bend forward. ?Swollen neck glands. ?Pain when you swallow. ?White areas in the back of your throat. Get help right away if: You have shortness of breath that gets worse. You have very bad or constant: ?Headache. ?Ear pain. ?Pain in your forehead, behind your eyes, and over your cheekbones (sinus pain). ?Chest pain. You have long-lasting (chronic) lung disease along with any of these: ?Making high-pitched whistling sounds when you breathe, most often when you breathe out (wheezing). ?Long-lasting cough (more than 14 days). ?Coughing up blood. ?A change in your usual mucus. You have a stiff neck. You have changes in your: ?Vision. ?Hearing. ?Thinking. ?Mood. These symptoms may be an emergency. Get help right away. Call 911. Do not wait to see if the symptoms will go away. Do not drive yourself to the hospital. Summary An upper respiratory infection (URI) is caused by a germ (virus). The most common type of URI is often called the common cold. URIs usually get better within 7 10 days. Take krpe-kmy-qfnpptp and prescription medicines only as told by your doctor. This information is not intended to replace advice given to you by your health care provider. Make sure you discuss any questions you have with your health care provider. Document Revised: 02/07/2022 Document Reviewed: 02/07/2022 Elsevier Patient Education 2022 [employer]. [facility] 11-14-2023 Hospital Discharg e instructions Patient Education 11/14/2023 17:48:44 BMI for Adults BMI for Adults What is BMI? Body mass index (BMI) is a number that is calculated from a person's weight and height. BMI can help estimate how much of a person's weight is composed of fat. BMI does not measure body fat directly. Rather, it is an alternative to procedures that directly measure body fat, which can be difficult and expensive. BMI can help identify people who may be at higher risk for certain medical problems. What are BMI measurements used for? BMI is used as a screening tool to identify possible weight problems. It helps determine whether a person is obese, overweight, a healthy weight, or underweight. BMI is useful for: Identifying a weight problem that may be related to a medical condition or may increase the risk for medical problems. Promoting changes, such as changes in diet and exercise, to help reach a healthy weight. BMI screening can be repeated to see if these changes are working. How is BMI calculated? BMI involves measuring your weight in relation to your height. Both height and weight are measured, and the BMI is calculated from those numbers. This can be done either in [place] ([place] or metric measurements. Note that charts and online BMI calculators are available to help you find your BMI quickly and easily without having to do these calculations yourself. To calculate your BMI in [place] measurements: 1.Measure your weight in pounds (lb). 2.Multiply the number of pounds by 703. For example, for a person who weighs 180 lb, multiply that number by 703, which equals 126,540. 3.Measure your height in inches. Then multiply that number by itself to get a measurement called inches squared. For example, for a person who is 70 inches tall, the inches squared measurement is 70 inches x 70 inches, which equals 4,900 inches squared. 4.Divide the total from step 2 (number of lb x 703) by the total from step 3 (inches squared): 126,540 4,900 = 25.8. This is your BMI. To calculate your BMI in metric measurements: 1.Measure your weight in kilograms (kg). 2.Measure your height in meters (m). Then multiply that number by itself to get a measurement called meters squared. For example, for a person who is 1.75 m tall, the meters squared measurement is 1.75 m x 1.75 m, which is equal to 3.1 meters squared. 3.Divide the number of kilograms (your weight) by the meters squared number. In this example: 70 3.1 = 22.6. This is your BMI. What do the results mean? BMI charts are used to identify whether you are underweight, normal weight, overweight, or obese. The following guidelines will be used: Underweight: BMI less than 18.5. Normal weight: BMI between 18.5 and 24.9. Overweight: BMI between 25 and 29.9. Obese: BMI of 30 or above. Keep these notes in mind: Weight includes both fat and muscle, so someone with a muscular build, such as an athlete, may have a BMI that is higher than 24.9. In cases like these, BMI is not an accurate measure of body fat. To determine if excess body fat is the cause of a BMI of 25 or higher, further assessments may need to be done by a health care provider. BMI is usually interpreted in the same way for men and women. Where to find more information For more information about BMI, including tools to quickly calculate your BMI, go to these websites: Centers for Disease Control and Prevention: www.cdc.gov [place] [employer]: www.heart.org National Heart, Lung, and Blood [place]: www.nhlbi.nih.gov Summary Body mass index (BMI) is a number that is calculated from a person's weight and height. BMI may help estimate how much of a person's weight is composed of fat. BMI can help identify those who may be at higher risk for certain medical problems. BMI can be measured using [place] measurements or metric measurements. BMI charts are used to identify whether you are underweight, normal weight, overweight, or obese. This information is not intended to replace advice given to you by your health care provider. Make sure you discuss any questions you have with your health care provider. Document Revised: 03/30/2020 Document Reviewed: 02/05/2020 [employer] Patient Education 2022 [employer]. 11/14/2023 17:48:42 Managing Your Hypertension Managing Your Hypertension Hypertension, also called high blood pressure, is when the force of the blood pressing against the love of the arteries is too strong. Arteries are blood vessels that carry blood from your heart throughout your body. Hypertension forces the heart to work harder to pump blood and may cause the arteries to become narrow or stiff. Understanding blood pressure readings A blood pressure reading includes a higher number over a lower number: The first, or top, number is called the systolic pressure. It is a measure of the pressure in your arteries as your heart beats. The second, or bottom number, is called the diastolic pressure. It is a measure of the pressure in your arteries as the heart relaxes. For most people, a normal blood pressure is below 120/80. Your personal target blood pressure may vary depending on your medical conditions, your age, and other factors. Blood pressure is classified into four stages. Based on your blood pressure reading, your health care provider may use the following stages to determine what type of treatment you need, if any. Systolic pressure and diastolic pressure are measured in a unit called millimeters of mercury (mmHg). Normal Systolic pressure: below 120. Diastolic pressure: below 80. Elevated Systolic pressure: 120 129. Diastolic pressure: below 80. Hypertension stage 1 Systolic pressure: 130 139. Diastolic pressure: 80 89. Hypertension stage 2 Systolic pressure: 140 or above. Diastolic pressure: 90 or above. How can this condition affect me? Managing your hypertension is very important. Over time, hypertension can damage the arteries and decrease blood flow to parts of the body, including the brain, heart, and kidneys. Having untreated or uncontrolled hypertension can lead to: A heart attack. A stroke. A weakened blood vessel (aneurysm). Heart failure. Kidney damage. Eye damage. Memory and concentration problems. Vascular dementia. What actions can I take to manage this condition? Hypertension can be managed by making lifestyle changes and possibly by taking medicines. Your health care provider will help you make a plan to bring your blood pressure within a normal range. You may be referred for counseling on a healthy diet and physical activity. Nutrition Eat a diet that is high in fiber and potassium, and low in salt (sodium), added sugar, and fat. An example eating plan is called the DASH diet. DASH stands for Dietary Approaches to Stop Hypertension. To eat this way: ?Eat plenty of fresh fruits and vegetables. Try to fill one-half of your plate at each meal with fruits and vegetables. ?Eat whole grains, such as whole-wheat pasta, brown rice, or whole-grain bread. Fill about one-fourth of your plate with whole grains. ?Eat low-fat dairy products. ?Avoid fatty cuts of meat, processed or cured meats, and poultry with skin. Fill about one-fourth of your plate with lean proteins such as fish, chicken without skin, beans, eggs, and tofu. ?Avoid pre-made and processed foods. These tend to be higher in sodium, added sugar, and fat. Reduce your daily sodium intake. Many people with hypertension should eat less than 1,500 mg of sodium a day. Lifestyle Work with your health care provider to maintain a healthy body weight or to lose weight. Ask what an ideal weight is for you. Get at least 30 minutes of exercise that causes your heart to beat faster (aerobic exercise) most days of the week. Activities may include walking, swimming, or biking. Include exercise to strengthen your muscles (resistance exercise), such as weight lifting, as part of your weekly exercise routine. Try to do these types of exercises for 30 minutes at least 3 days a week. Do not use any products that contain nicotine or tobacco. These products include cigarettes, chewing tobacco, and vaping devices, such as e-cigarettes. If you need help quitting, ask your health care provider. Control any long-term (chronic) conditions you have, such as high cholesterol or diabetes. Identify your sources of stress and find ways to manage stress. This may include meditation, deep breathing, or making time for fun activities. Alcohol use Do not drink alcohol if: ?Your health care provider tells you not to drink. ?You are , may be , or are planning to become . If you drink alcohol: ?Limit how much you have to: ?0 1 drink a day for women. ?0 2 drinks a day for men. ?Know how much alcohol is in your drink. In the [place] one drink equals one 12 oz bottle of beer (355 mL), one 5 oz glass of wine (148 mL), or one 1 oz glass of hard liquor (44 mL). Medicines Your health care provider may prescribe medicine if lifestyle changes are not enough to get your blood pressure under control and if: Your systolic blood pressure is 130 or higher. Your diastolic blood pressure is 80 or higher. Take medicines only as told by your health care provider. Follow the directions carefully. Blood pressure medicines must be taken as told by your health care provider. The medicine does not work as well when you skip doses. Skipping doses also puts you at risk for problems. Monitoring Before you monitor your blood pressure: Do not smoke, drink caffeinated beverages, or exercise within 30 minutes before taking a measurement. Use the bathroom and empty your bladder (urinate). Sit quietly for at least 5 minutes before taking measurements. Monitor your blood pressure at home as told by your health care provider. To do this: Sit with your back straight and supported. Place your feet flat on the floor. Do not cross your legs. Support your arm on a flat surface, such as a table. Make sure your upper arm is at heart level. Each time you measure, take two or three readings one minute apart and record the results. You may also need to have your blood pressure checked regularly by your health care provider. General information Talk with your health care provider about your diet, exercise habits, and other lifestyle factors that may be contributing to hypertension. Review all the medicines you take with your health care provider because there may be side effects or interactions. Keep all follow-up visits. Your health care provider can help you create and adjust your plan for managing your high blood pressure. Where to find more information National Heart, Lung, and Blood [place]: www.nhlbi.nih.gov [place] [employer]: www.heart.org Contact a health care provider if: You think you are having a reaction to medicines you have taken. You have repeated (recurrent) headaches. You feel dizzy. You have swelling in your ankles. You have trouble with your vision. Get help right away if: You develop a severe headache or confusion. You have unusual weakness or numbness, or you feel faint. You have severe pain in your chest or abdomen. You vomit repeatedly. You have trouble breathing. These symptoms may be an emergency. Get help right away. Call 911. Do not wait to see if the symptoms will go away. Do not drive yourself to the hospital. Summary Hypertension is when the force of blood pumping through your arteries is too strong. If this condition is not controlled, it may put you at risk for serious complications. Your personal target blood pressure may vary depending on your medical conditions, your age, and other factors. For most people, a normal blood pressure is less than 120/80. Hypertension is managed by lifestyle changes, medicines, or both. Lifestyle changes to help manage hypertension include losing weight, eating a healthy, low-sodium diet, exercising more, stopping smoking, and limiting alcohol. This information is not intended to replace advice given to you by your health care provider. Make sure you discuss any questions you have with your health care provider. Document Revised: 03/22/2022 Document Reviewed: 03/22/2022 [employer] Patient Education 2022 [employer] 11/14/2023 17:48:36 Dental Abscess, Rvxn-nu-Huod Dental Abscess A dental abscess is an area of pus in or around a tooth. It comes from an infection. It can cause pain and other symptoms. Treatment will help with symptoms and prevent the infection from spreading. What are the causes? This condition is caused by an infection in or around the tooth. This can be from: Very bad tooth decay (cavities). A bad injury to the tooth, such as a broken or chipped tooth. What increases the risk? The risk to get an abscess is higher in males. It is also more likely in people who: Have dental decay. Have very bad gum disease. Eat sugary snacks between meals. Use tobacco. Have diabetes. Have a weak disease-fighting system (immune system). Do not brush their teeth regularly. What are the signs or symptoms? Some mild symptoms are: Tenderness. Bad breath. Fever. A sharp, sour taste in the mouth. Pain in and around the infected tooth. Worse symptoms of this condition include: Swollen neck glands. Chills. Pus draining around the tooth. Swelling and redness around the tooth, the mouth, or the face. Very bad pain in and around the tooth. The worst symptoms can include: Difficulty swallowing. Difficulty opening your mouth. Feeling like you may vomit or vomiting. How is this treated? This is treated by getting rid of the infection. Your dentist will discuss ways to do this, including: Antibiotic medicines. Antibacterial mouth rinse. An incision in the abscess to drain out the pus. A root canal. Removing the tooth. Follow these instructions at home: Medicines Take bnur-mft-zakpmox and prescription medicines only as told by your dentist. If you were prescribed an antibiotic medicine, take it as told by your dentist. Do not stop taking it even if you start to feel better. If you were prescribed a gel that has numbing medicine in it, use it exactly as told. Ask your dentist if you should avoid driving or using machines while you are taking your medicine. General instructions Rinse your mouth often with salt water. To make salt water, dissolve 1 tsp (3 6 g) of salt in 1 cup (237 mL) of warm water. Eat a soft diet while your mouth is healing. Drink enough fluid to keep your pee (urine) pale yellow. Do not apply heat to the outside of your mouth. Do not smoke or use any products that contain nicotine or tobacco. If you need help quitting, ask your dentist. Keep all follow-up visits. Prevent an abscess [place] your teeth every morning and every night. Use fluoride toothpaste. Floss your teeth each day. Get dental cleanings as often as told by your dentist. Think about getting dental sealant put on teeth that have deep holes (decay). Drink water that has fluoride in it. ?Most tap water has fluoride. ?Check the label on bottled water to see if it has fluoride in it. Drink water instead of sugary drinks. Eat healthy meals and snacks. Wear a mouth guard or face shield when you play sports. Contact a doctor if: Your pain is worse and medicine does not help. Get help right away if: You have a fever or chills. Your symptoms suddenly get worse. You have a very bad headache. You have problems breathing or swallowing. You have trouble opening your mouth. You have swelling in your neck or close to your eye. These symptoms may be an emergency. Get help right away. Call your local emergency services (911 in the [place] Do not wait to see if the symptoms will go away. Do not drive yourself to the hospital. Summary A dental abscess is an area of pus in or around a tooth. It is caused by an infection. Treatment will help with symptoms and prevent the infection from spreading. Take wmyk-uur-hiqmjju and prescription medicines only as told by your dentist. To prevent an abscess, take good care of your teeth. [place] your teeth every morning and night. Use floss every day. Get dental cleanings as often as told by your dentist. This information is not intended to replace advice given to you by your health care provider. Make sure you discuss any questions you have with your health care provider. Document Revised: 09/14/2021 Document Reviewed: 09/14/2021 [employer] Patient Education 2022 [employer]. Follow Up Care 11/14/2023 16:42:47 With:Dentist Address: When:2 to 4 days Comments:Patient instructed to contact his dentist office tomorrow, to schedule an appointment. [facility] 11-05-2023 History of Presen t illness Narrative Chief Complaint: Inverted papilloma follow-up. Referring Provider: No ref. provider found History of Present Illness: Parveen Lee is a 53 y.o. male, presenting for follow-up for inverted papilloma. He is status post endoscopic resection and redo resection. He has no complaints today. No nasal obstruction no epistaxis no other changes. He has not had any recent imaging. ? Review of Systems: Review of symptoms was negative except for those stated including Cardiopulmonary, Genitourinary, Gastrointestinal, Psychological, Sleep pattern, Endocrine, Eyes, Neurologic, Musculoskeletal, Skin, Hematologic/Lymphatic and Allergic/Immunologic. Medical History: I have reviewed the patient's updated past medical history, surgical history, family history, social history, as well as current medications and allergies as of 11/05/2023. Changes to these items have been updated and marked as reviewed in the electronic medical record. Physical Exam: Vitals: height is 1.803 m (5' 11 ) and weight is 118 kg (259 lb 4.8 oz). General: Patient doing well overall and is in no apparent distress. Psych: Pleasant affect, and answers questions appropriately. Head & Face: Symmetric facial movements Eyes: Pupils equal, round, reactive. Extraocular movements intact without gaze restrictions or nystagmus. No epiphora. Ears: External auditory canals are normal. Tympanic membranes are clear. No middle ear effusion is seen. All middle ear landmarks are normal. Nose: Anterior rhinoscopy revealed normal sinonasal mucosa. More posterior areas of the nasal cavity could not be completely examined. Oral Cavity/Oropharynx: Without lesions or masses to visual exam. Neck: Supple without lymphadenopathy. Lungs: Non-labored, and without evidence of stridor. Cardiac: Pulses are strong, well-perfused. Extremities: Without gross evidence of clubbing, cyanosis, or edema. Neuro: Cranial nerves II-XII grossly intact; Intact facial movements. Procedure: Rigid nasal endoscopy ([id number]) Pre-procedure diagnosis/Indication for procedure: To evaluate areas not visualized on anterior rhinoscopy Anesthesia: None Description: A 0-degree 3-mm rigid nasal endoscope was used to examine the left and right nasal cavities. The nasal valve areas were examined for abnormalities or collapse. The inferior and middle turbinates were evaluated. The middle and superior meatuses, and the sphenoethmoid recesses were examined and inspected for mucopurulence and polyps. Once the endoscope was withdrawn, the patient was noted to have tolerated the procedure well without complications and was returned to ambulatory status. Findings: Widely patent right ethmoid cavity and maxillary antrostomy. Well-healed mucosa. No sign of inverted papilloma or other neoplasm. Tolerated the procedure well. Assessment: Parveen Lee is a 53 y.o. 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 Plan: Follow up in 4 months for routine surveillance CT in 3-4 months before visit. Dot Melendez MD, M.Eng. Administrative Support Assistant of Otolaryngology - Head & Neck Surgery Division of Rhinology and Endoscopic Skull Base Surgery [facility] documented in this encounter [facility] Work Phone: 2023 Evaluation note Encounter Date Diagnosis Assessment Notes Jul, Primary hypertension (ICD-10 - I10) Jul, Type 2 diabetes mellitus with hyperglycemia (ICD-10 - E11.65) [employer] Other 01-29-2024 Evaluation note* Encounter Date Diagnosis Assessment Notes Treatment Notes Treatment Clinical Notes Jul, Type 2 diabetes mellitus with hyperglycemia (ICD-10 - E11.65) [facility] Other 01-24-2024 History of Present illness Narrative* Dot Connell MD - 08/14/2023 11:30 AM EST Chief Complaint: Post-op Referring Provider: No ref. provider found History of Present Illness: Parveen Lee is a 52 y.o. male, presenting for follow-up after undergoing endoscopic resection of an inverted papilloma on Saturday. He has not been keeping up with his irrigations. His margins came back negative for IP. Doing great except for some minor congestion. ? Review of Systems: Review of symptoms was negative except for those stated including Cardiopulmonary, Genitourinary, Gastrointestinal, Psychological, Sleep pattern, Endocrine, Eyes, Neurologic, Musculoskeletal, Skin, Hematologic/Lymphatic and Allergic/Immunologic. Medical History: I have reviewed the patient's updated past medical history, surgical history, family history, social history, as well as current medications and allergies as of 08/14/2023. Changes to these items havebeen updated and marked as reviewed in the electronic medical record. Physical Exam: Vitals: height is 1.803 m (5' 11 ) and weight is 122 kg (269 lb 8 oz). His temperature is 36.4 C (97.6 F). General: Patient doing well overall and is in no apparent distress. Psych: Pleasant affect, and answers questions appropriately. Head & Face: Symmetric facial movements Eyes: Pupils equal, round, reactive. Extraocular movements intact without gaze restrictions or nystagmus. No epiphora. Ears: External auditory canals are normal. Tympanic membranes are clear. No middle ear effusion is seen. All middle ear landmarks are normal. Nose: Anterior rhinoscopy revealed normal sinonasal mucosa. More posterior areas of the nasal cavity could not be completely examined. Oral Cavity/Oropharynx: Without lesions or masses to visual exam. Neck: Supple without lymphadenopathy. Lungs: Non-labored, and without evidence of stridor. Cardiac: Pulses are strong, well-perfused. Extremities: Without gross evidence of clubbing, cyanosis, or edema. Neuro: Cranial nerves II-XII grossly intact; Intact facial movements. Procedure: Bilateral sinonasal cavity debridement (21811) Pre-procedure diagnosis: Sinonasal crusting/obstruction Post-procedure diagnosis: Sinonasal crusting/obstruction Indication: Remove nasal crusting, prevent synechiae Verbal consent was obtained after informed discussion Topical anesthetic was applied with a combination of 4% lidocaine spray and oxymetazoline. A 0 and 30-degree endoscope was used throughout the procedure. Blood clots, debris, eschar and nasal crusting were removed from the middle meatus, maxillary sinusand area of the frontal recess bilaterally. A combination of straight and curved suctions, as well as grasping forceps were utilized bilaterally. Findings: I meticulously debrided extensive crusting within the middle meatus ethmoid cavity and at the site of the previously resected middle turbinate. No evidence of any recurrence. No infection. He tolerated the procedure well. The patient tolerated the procedure well. Assessment: Parveen Lee is a 52 y.o. 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 Tumor appeared to be attached to the middle turbinate which was ultimately resected. Plan: We will see him back in 2 months for disease surveillance. I advised him to continue irrigations toavoid the risk of synechiae. Dot Melendez MD, M.Eng. Administrative Support Assistant of Otolaryngology - Head & Neck Surgery Division of Rhinology and Endoscopic Skull Base Surgery [facility] documented in this [facility] Work Phone: [phone]) 816-614001-09-2024 History of Present illness Narrative* Dot Connell MD - 07/30/2023 11:00 AM EST Chief Complaint: Post-op Referring Provider: No ref. provider found History of Present Illness: Parveen Lee is a 52 y.o. male, presenting for follow-up after undergoing endoscopic resection of an inverted papilloma on Saturday. His postoperative course was unremarkable. He states that he hada pretty good weekend. He is back at work today. His pathology is still pending. He has not yet started his irrigations. No other new issues. ? Review of Systems: Review of symptoms was negative except for those stated including Cardiopulmonary, Genitourinary, Gastrointestinal, Psychological, Sleep pattern, Endocrine, Eyes, Neurologic, Musculoskeletal, Skin, Hematologic/Lymphatic and Allergic/Immunologic. Medical History: I have reviewed the patient's updated past medical history, surgical history, family history, social history, as well as current medications and allergies as of 07/30/2023. Changes to these items have been updated and marked as reviewed in the electronic medical record. Physical Exam: Vitals: height is 1.803 m (5' 11 ) and weight is 123 kg (270 lb 9.6 oz). General: Patient doing well overall and is in no apparent distress. Psych: Pleasant affect, and answers questions appropriately. Head & Face: Symmetric facial movements Eyes: Pupils equal, round, reactive. Extraocular movements intact without gaze restrictions or nystagmus. No epiphora. Ears: External auditory canals are normal. Tympanic membranes are clear. No middle ear effusion is seen. All middle ear landmarks are normal. Nose: Anterior rhinoscopy revealed normal sinonasal mucosa. More posterior areas of the nasal cavity could not be completely examined. Oral Cavity/Oropharynx: Without lesions or masses to visual exam. Neck: Supple without lymphadenopathy. Lungs: Non-labored, and without evidence of stridor. Cardiac: Pulses are strong, well-perfused. Extremities: Without gross evidence of clubbing, cyanosis, or edema. Neuro: Cranial nerves II-XII grossly intact; Intact facial movements. Procedure: Bilateral sinonasal cavity debridement (83730) Pre-procedure diagnosis: Sinonasal crusting/obstruction Post-procedure diagnosis: Sinonasal crusting/obstruction Indication: Remove nasal crusting, prevent synechiae Verbal consent was obtained after informed discussion Topical anesthetic was applied with a combination of 4% lidocaine spray and oxymetazoline. A 0 and 30-degree endoscope was used throughout the procedure. Blood clots, debris, eschar and nasal crusting were removed from the middle meatus, maxillary sinusand area of the frontal recess bilaterally. A combination of straight and curved suctions, as well as grasping forceps were utilized bilaterally. Findings: I meticulously debrided extensive crusting within the middle meatus ethmoid cavity and at the site of the previously resected middle turbinate. No evidence of any recurrence. No infection. He tolerated the procedure well. The patient tolerated the procedure well. Assessment: Parveen Lee is a 52 y.o. 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 Tumor appeared to be attached to the middle turbinate which was ultimately resected. Pathology pending. Plan: We will see him back in 2 to 3 weeks for routine debridement. I advised him that he would need to follow-up with us at least every 2 to 3 months in the first year to monitor for recurrence. Dot Melendez MD, M.Eng. Administrative Support Assistant of Otolaryngology - Head & Neck Surgery Division of Rhinology and Endoscopic Skull Base Surgery [facility] documented in this [facility] Work Phone: [phone]) 978-232801-05-2024 Note* Significant Event - Rebecca Burt RN - 07/26/2023 2:33 PM EST Patient arrived from [place] [facility] MD is treating blood pressure with metoprolol. Blood sugar is 154. [facility]01-05-2024 Miscellaneous Notes* Significant Event - Rebecca Burt RN - 07/26/2023 2:33 PM EST Patient arrived from [place] [facility] MD is treating blood pressure with metoprolol. Blood sugar is 154. documented in this [facility] Work Phone: 1(885) 412-592301-05-2024 Hospital Discharge instructions* Discharge Instructions* Janette Salinas MD - 07/26/2023 12:25 PM EST Images from the original note were not included. Dot Melendez MD, M.Eng. [facility] Department of Otolaryngology-Head & Neck Surgery Division of Rhinology and Endoscopic Skull Base Surgery [email or web address] PHONE NUMBERS: Emergency: Call 911 Urgent Issues/After Hours: Call [phone] and ask to speak to the ENT resident on-call for Otolaryngology/Dr. Melendez For regular, routine issues, feel free to call us at the office WHAT TO DO You need to follow-up with me at my outpatient clinic on the date provided to you. Please call us to change date or time. Please keep in mind that the timing of your post-operative visit may affect the success of your surgery. Call [facility] if you are experiencing any unexpected problems. Familiarize yourself with these instructions. These instructions should replace any instructions given to you by the hospital. If you have questions, please call me. Use the recommended medications and treatments as described. Do not blow your nose until I say it is OK. Call me with questions. Also, please call me the day after surgery to let me know how you are doing. WHAT TO EXPECT Nasal Discharge & Bleeding It is common to have mild bleeding and nasal drainage after nasal & sinus surgery. After surgery, a drip pad may have been placed under your nose. You may remove this at any point and can replace it if necessary, at your discretion. Pain & Pressure It is common to experience cejv-sp-eqansarf pain and pressure in your face and around your eyes. The pain usually is worst the first day after surgery but can continue for several days. Use your painmedications as described below. For any severe pain uncontrolled by medications, please contact theoffice or present to the emergency room. Fatigue It is common to feel mild to moderate fatigue for 7-10 days after surgery. Nasal Congestion and Crusting It is common to experience worsened nasal congestion after surgery. This is due to swelling and crusts. Crusts are essentially scabs and mucus that build up in the nasal passages after surgery. Crusts eventually resolve. Usually, I will remove some crusts during your postoperative visit. Nasal irrigation helps to soften and remove scabs. We will tell you on the day of surgery when you can start irrigation Nasal irrigation kits are available over the counter in the nasal section. Common brands include SinuCleanse or NeilMed. ACTIVITY First 1-2 days after surgery: Plan to rest, but you may start light activities as tolerated. Days 2 through 10 following surgery: Light activity only until 10 days after surgery, gradually increase activity. No extensive bending over for 7 days after surgery. No lifting over 20 pounds for one week after surgery. No aerobic exercise until I clear you to do so. You may shower starting 1 day after surgery Call my office if you experience any of the following: Fever higher than 101 F Clear, watery nasal discharge Any visual changes or marked swelling around the eyes Severe headache or neck stiffness Brisk bleeding NUTRITION Day of surgery Drink plenty of water / fluids Eat light snacks as tolerated It is common for people to have less of an appetite the day of surgery Day after surgery: Advance your diet as tolerated MEDICATION SAFETY TIPS Use medications only as directed in the amounts specified Avoid aspirin for 10 days. Avoid fish oil (omega-3/6) and vitamin E for 1 week. As your pain lessens, you may replace doses of prescription pain medications with acetaminophen (Tylenol). However, if prescribed Lortab or Percocet (containing acetaminophen), Do Not take doses of prescription pain medications at the same time as Tylenol because this could cause an overdose of Tylenol. Do Not drive or operate machinery if taking prescription pain medications Read each medication label carefully, ask your pharmacist if you have any questions regarding warnings on the label Do not measure liquid with a kitchen spoon. There are pediatric measuring devices available at the pharmacy. Ask for one when you get your prescription filled. Store all mediations out of reach of children. Call the Poison Control Center if you or your child takes too much of any medicine or if your childconsumes your medication . Revised 12/2021 documented in this [facility] Work Phone: 1(578) 347-963301-05-2024 History and physical note* Janette Salinas MD - 07/26/2023 7:07 AM EST History Of Present Illness Parveen Lee is a 52 y.o. male presenting for evaluation of Inverted papilloma. He originally presented with nasal obstruction. He recently underwent endoscopic resection of the tumor about [address] Harrison reported a positive margin along the middle turbinate and referred him here for definitive resection. Parveen feels considerably better since his surgery and he is able to breathe on the right side of his nose whereas before surgery he was not. He describes no lasting pain or other issues. No numbness or other deficits. He has not had recent imaging following his surgery. He hasdiabetes but no other comorbidities. Pathology report was not available for review during his visit today. Past Medical History He has a past medical history of Arthritis, Depression, Diabetes mellitus ([facility]), Hearing aid worn, HL (hearing loss), Hyperlipidemia, Hypertension, Inverted papilloma (06/25/2023), and Vision loss. Surgical History He has a past surgical history that includes Knee Arthroplasty; Appendectomy; Septoplasty; Hernia repair; and Cyst Removal. Social History He reports that he has never smoked. He has never used smokeless tobacco. He reports current alcohol use. He reports that he does not use drugs. Family History Family History Problem Relation Name Age of Onset Anemia Mother Hemophilia Father Stroke Father Diabetes Father Hypertension Father Cancer Maternal Grandfather Allergies Patient has no known allergies. Review of Systems Physical Exam Vitals: height is 1.803 m (5' 11 ) and weight is 120 kg (265 lb 8 oz). General: Patient doing well overall and is in no apparent distress. Psych: Pleasant affect, and answers questions appropriately. Head & Face: Symmetric facial movements Eyes: Pupils equal, round, reactive. Extraocular movements intact without gaze restrictions or nystagmus. No epiphora. Ears: External auditory canals are normal. Tympanic membranes are clear. No middle ear effusion is seen. All middle ear landmarks are normal. Nose: Anterior rhinoscopy revealed normal sinonasal mucosa. More posterior areas of the nasal cavity could not be completely examined. Oral Cavity/Oropharynx: Without lesions or masses to visual exam. Neck: Supple without lymphadenopathy. Lungs: Non-labored, and without evidence of stridor. Cardiac: Pulses are strong, well-perfused. Extremities: Without gross evidence of clubbing, cyanosis, or edema. Neuro: Cranial nerves II-XII grossly intact; Intact facial movements. Last Recorded Vitals There were no vitals taken for this visit. Relevant Results Assessment/Plan Principal Problem: Inverted papilloma Plan: revision resection of right sinonasal inverted papilloma. I Janette Salinas MD [facility] Work Phone: [phone]) 622-285601-05-2024 History and physical note* Janette Salinas MD - 07/26/2023 7:07 AM EST History Of Present Illness Parveen Lee is a 52 y.o. male presenting for evaluation of Inverted papilloma. He originally presented with nasal obstruction. He recently underwent endoscopic resection of the tumor about [address] Harrison reported a positive margin along the middle turbinate and referred him here for definitive resection. Parveen feels considerably better since his surgery and he is able to breathe on the right side of his nose whereas before surgery he was not. He describes no lasting pain or other issues. No numbness or other deficits. He has not had recent imaging following his surgery. He hasdiabetes but no other comorbidities. Pathology report was not available for review during his visit today. Past Medical History He has a past medical history of Arthritis, Depression, Diabetes mellitus (CMS/HCC), Hearing aid worn, HL (hearing loss), Hyperlipidemia, Hypertension, Inverted papilloma (06/25/2023), and Vision loss. Surgical History He has a past surgical history that includes Knee Arthroplasty; Appendectomy; Septoplasty; Hernia repair; and Cyst Removal. Social History He reports that he has never smoked. He has never used smokeless tobacco. He reports current alcohol use. He reports that he does not use drugs. Family History Family History Problem Relation Name Age of Onset Anemia Mother Hemophilia Father Stroke Father Diabetes Father Hypertension Father Cancer Maternal Grandfather Allergies Patient has no known allergies. Review of Systems Physical Exam Vitals: height is 1.803 m (5' 11 ) and weight is 120 kg (265 lb 8 oz). General: Patient doing well overall and is in no apparent distress. Psych: Pleasant affect, and answers questions appropriately. Head & Face: Symmetric facial movements Eyes: Pupils equal, round, reactive. Extraocular movements intact without gaze restrictions or nystagmus. No epiphora. Ears: External auditory canals are normal. Tympanic membranes are clear. No middle ear effusion is seen. All middle ear landmarks are normal. Nose: Anterior rhinoscopy revealed normal sinonasal mucosa. More posterior areas of the nasal cavity could not be completely examined. Oral Cavity/Oropharynx: Without lesions or masses to visual exam. Neck: Supple without lymphadenopathy. Lungs: Non-labored, and without evidence of stridor. Cardiac: Pulses are strong, well-perfused. Extremities: Without gross evidence of clubbing, cyanosis, or edema. Neuro: Cranial nerves II-XII grossly intact; Intact facial movements. Last Recorded Vitals There were no vitals taken for this visit. Relevant Results Assessment/Plan Principal Problem: Inverted papilloma Plan: revision resection of right sinonasal inverted papilloma. Tomasz Salinas MD documented in this [facility] Work Phone: [phone]) 697-623512-05-2023 History of Present illness Narrative* Dot Connell MD - 06/25/2023 11:30 AM EST Chief Complaint: Inverted Papilloma Referring Provider: No ref. provider found History of Present Illness: Parveen Lee is a 52 y.o. male, presenting for evaluation of Inverted papilloma. He originally presented with nasal obstruction. He recently underwent endoscopic resection of the tumor about [address] Harrison reported a positive margin along the middle turbinate and referred him here for definitive resection. Parveen feels considerably better since his surgery and he is able to breathe on the right side of his nose whereas before surgery he was not. He describes no lasting pain or other issues. No numbness or other deficits. He has not had recent imaging following his surgery. He has diabetes but no other comorbidities. Pathology report was not available for review during his visit today. ? Review of Systems: Review of symptoms was negative except for those stated including Cardiopulmonary, Genitourinary, Gastrointestinal, Psychological, Sleep pattern, Endocrine, Eyes, Neurologic, Musculoskeletal, Skin, Hematologic/Lymphatic and Allergic/Immunologic. Medical History: I have reviewed the patient's updated past medical history, surgical history, family history, social history, as well as current medications and allergies as of 06/25/2023. Changes to these items havebeen updated and marked as reviewed in the electronic medical record. Physical Exam: Vitals: height is 1.803 m (5' 11 ) and weight is 120 kg (265 lb 8 oz). General: Patient doing well overall and is in no apparent distress. Psych: Pleasant affect, and answers questions appropriately. Head & Face: Symmetric facial movements Eyes: Pupils equal, round, reactive. Extraocular movements intact without gaze restrictions or nystagmus. No epiphora. Ears: External auditory canals are normal. Tympanic membranes are clear. No middle ear effusion is seen. All middle ear landmarks are normal. Nose: Anterior rhinoscopy revealed normal sinonasal mucosa. More posterior areas of the nasal cavity could not be completely examined. Oral Cavity/Oropharynx: Without lesions or masses to visual exam. Neck: Supple without lymphadenopathy. Lungs: Non-labored, and without evidence of stridor. Cardiac: Pulses are strong, well-perfused. Extremities: Without gross evidence of clubbing, cyanosis, or edema. Neuro: Cranial nerves II-XII grossly intact; Intact facial movements. Procedure: Rigid nasal endoscopy (65551) Pre-procedure diagnosis/Indication for procedure: To evaluate areas not visualized on anterior rhinoscopy Anesthesia: 1% phenylephrine and 4% lidocaine topical spray Description: A 0-degree 4-mm rigid nasal endoscope was used to examine the left and right nasal cavities. The nasal valve areas were examined for abnormalities or collapse. The inferior and middle turbinates were evaluated. The middle and superior meatuses, and the sphenoethmoid recesses were examined and inspected for mucopurulence and polyps. Once the endoscope was withdrawn, the patient was noted to have tolerated the procedure well without complications and was returned to ambulatory status. Findings: The left sinonasal cavity is essentially normal with a patent middle meatus and nasopharynx. On theright side there appears to be likely tumor tissue medial to the middle turbinates between the middle turbinate and the septum. It is difficult to assess as superior and posterior the tumor attaches based on my endoscopic view. No significant blood clots or crusting. He tolerated the procedure well. Assessment: Parveen Lee is a 52 y.o. male with right sinonasal inverted papilloma. Plan: I explained the risks benefits and alternatives to proceeding to the operating room for revision resection of right sinonasal inverted papilloma. I explained that this will likely be via a endoscopicapproach however we would review his new scan after we obtain it and make a final determination at that point based on where tumor appears to be attached. Will plan to book him at our main campus operating room so we can assess margin status with frozen section Dot Melendez MD, M.Eng. Administrative Support Assistant of Otolaryngology - Head & Neck Surgery Division of Rhinology and Endoscopic Skull Base Surgery [facility] documented in this [facility] Work Phone: [phone]) 475-190211-25-2023 Evaluation + Plan noteExtracted from: Title:ED Note Author:Mohan Pinzon DO Date :06/15/23 Pain, dental (K08.89: Other specified disorders of teeth and supporting structures) Orders: acetaminophen-hydrocodone, 1 tab(s), Oral, q6hr for pain for 3 day(s), 7 tab(s), Refill(s) 0, [email or web address] #[id number], 180.3, cm, 06/15/23 0:40:00 EST, Height/Length Dosing, 117.9, kg, 06/15/23 0:40:00 EST, Weight Dosing acetaminophen-hydrocodone, 1 EA, Tab, Oral, Once, Stop date 06/15/23 1:15:00 EST, STAT, Start date 06/15/23 1:15:00 EST amoxicillin, 500 mg = 1 cap(s), Oral, TID, X 5 day(s), # 15 cap(s), Refills(s) 0, Pharmacy: [facility] #[id number], 180.3, cm, 06/15/23 0:40:00 EST, Height/Length Dosing, 117.9, kg, 06/15/23 0:40:00 EST, Weight Dosing amoxicillin, 500 mg = 1 cap(s), Cap, Oral, Once, Stop date 06/15/23 1:15:00 EST, STAT, Start date 06/15/23 1:15:00 EST, 06/15/23 1:15:00 EST benzocaine topical, 1 power, Gel, Topical, Once, Stop date 06/15/23 1:15:00 EST, STAT, Start date 06/15/23 1:15:00 EST lidocaine, 100 mg, 10 mL, Injection, TransDermal, Once, Stop date 06/15/23 1:15:00 EST, STAT, Start date 06/15/23 1:15:00 EST [facility]11-25-2023 Hospital Discharge instructions Patient Education 06/15/2023 01:29:34 Dental Pain, Qqou-lh-Tudh Dental Pain Dental pain is often a sign that something is wrong with your teeth or gums. You can also have painafter a dental treatment. If you have dental pain, it is important to contact your dentist, especially if the cause of the pain is not known. Dental pain may hurt a lot or a little and can be caused by many things, including: Tooth decay (cavities or caries). Infection. The inner part of the tooth being filled with pus (an abscess). Injury. A crack in the tooth. Gums that move back and expose the root of a tooth. Gum disease. Abnormal grinding or clenching of teeth. Not taking good care of your teeth. Sometimes the cause of pain is not known. You may have pain all the time, or it may happen only when you are: Chewing. Exposed to hot or cold temperatures. Eating or drinking foods or drinks that have a lot of sugar in them, such as soda or candy. Follow these instructions at home: Medicines Take ptlj-hoi-bijjsnr and prescription medicines only as told by your dentist. If you were prescribed an antibiotic medicine, take it as told by your dentist. Do not stop taking it even if you start to feel better. Eating and drinking Do not eat foods or drinks that cause you pain. These include: Very hot or very cold foods or drinks. Sweet or sugary foods or drinks. Managing pain and swelling If told, put ice on the painful area of your face. To do this: ?Put ice in a plastic bag. ?Place a towel between your skin and the bag. ?Leave the ice on for 20 minutes, 2 3 times a day. ?Take off the ice if your skin turns bright red. This is very important. If you cannot feel pain, heat, or cold, you have a greater risk of damage to the area. Brushing your teeth [place] your teeth twice a day using a fluoride toothpaste. Use a toothpaste made for sensitive teeth as told by your dentist. Use a soft toothbrush. General instructions Floss your teeth at least once a day. Do not put heat on the outside of your face. Rinse your mouth often with salt water. To make salt water, dissolve 1 tsp (3 6 g) of salt in 1 cup(237 mL) of warm water. Watch your dental pain. Let your dentist know if there are any changes. Keep all follow-up visits. Contact a dentist if: You have dental pain and you do not know why. Medicine does not help your pain. Your symptoms get worse. You have new symptoms. Get help right away if: You cannot open your mouth. You are having trouble breathing or swallowing. You have a fever. Your face, neck, or jaw is swollen. These symptoms may be an emergency. Get help right away. Call your local emergency services (911 int [place] Do not wait to see if the symptoms will go away. Do not drive yourself to the hospital. Summary Dental pain may be caused by many things, including tooth decay, injury, or infection. In some cases, the cause is not known. Dental pain may hurt a lot or very little. You may have pain all the time, or you may have it only when you eat or drink. Take xdhl-zhc-nklabvf and prescription medicines only as told by your dentist. Watch your dental pain for any changes. Let your dentist know if symptoms get worse. This information is not intended to replace advice given to you by your health care provider. Make sure you discuss any questions you have with your health care provider. Document Revised: 04/12/2021 Document Reviewed: 04/12/2021 [employer] Patient Education 2022 [employer]. Follow Up Care 06/15/2023 00:34:43 With:Dental: [facility] [phone] Address:Unknown When:06/18/2023 With:Dental: [employer] [phone] Address:Unknown When:06/18/2023 With:Dental: [facility] [phone] Address:Unknown When:06/18/2023 With:NAYAN GEE Address: [address] [place] [address] [facility] (1) When:06/18/2023 Comments:Take the antibiotics as prescribed to completed the course. You can use the pain medication every 6hours as needed for pain. Please follow-up with your primary care doctor next 2 to 3 days. Please return to the ED for any new or worsening symptoms. [facility]11-16-2023 Evaluation note* Encounter Date Diagnosis Assessment Notes Treatment Notes Treatment Clinical Notes May, Type 2 diabetes mellitus with hyperglycemia (ICD-10 - E11.65) This patient is following a comprehensive diabetic treatment plan. They are checking their feet daily for calluses and nonhealing ulcers. They are being seen for yearly dilated eye examinations. Goals: SBP less than 130, LDL less than 100, FBS less than 140, A1C less than 7%. They are checking their BS daily, will which are reviewed at the office visit. Continue regular routine monitoring of A1C,] Microalbumin, Dilated eye exam and Foot exam May, BEULAH (obstructive sle ep apnea) (ICD-10 - G47.33) This patient is aware of the benefits associated with BEULAH: With continued use, the patient reduces the risk for AK, CVA, HTN, cardiac dysrhythmias and sudden cardiac deaths.The patient is also aware of the association between BEULAH and morning headaches, daytime somnolence, fatigue and obesity, which also has been improved with continued use.The patient is compliant with treatment, wearing the equipment every night for greater than 4 hours.The patient is instructed to continue use of the CPAP for BEULAH treatment. May, Primary hypertension (ICD-10 - I10) This patient is instructed to consume a healthy, low-fat, low-salt diet. They are also encouraged to continue exercise to achieve/maintain a normal BMI. May, Recurrent major depressive disorder, in full remission (ICD-10 - F33.42) Mood stable No change in medical treatment Instructed on healthy diet and exercise. May, Hypercholesteremia (ICD-10 - E78.00) May, Gastroesophageal ref lux disease with esophagitis without hemorrhage (ICD-10 - K21.00) Diet instructions: Smaller portions, avoid eating and laying flat, avoid eating or drinking prior to bedtime. Weight loss. May, Inverted papilloma (ICD-10 - D36.9) Primary resection completed by Dr. Harrison. Referral to [facility] for additional procedures. States breathing better already, continue close f/u w/ Dr. Harrison May, [facility] (current) use of insulin (ICD-10 - Z79.4) [employer] [facility] Other 11-09-2023 Hospital Discharge instructions Patient Education 05/30/2023 12:40:16 [facility]) [place], [place] DISCHARGE INSTRUCTIONS: NASAL SURGERY DO NOT BLOW YOUR NOSE: You may sniff back ONLY. If your nose begins to bleed, do not become alarmed. Sit down, put your feet up and apply ice to the back of your neck. Use 2 sprays of the nasal decongestant. If the bleeding is very brisk, or does not stop in 5-10 minutes, either call the office or report to the nearest Emergency Department. ACTIVITY: Maintain a low level of activity. You may fatigue easily. Rest frequently and avoid exertion. You may take short walks and drive short distances if you are not taking medication that makes you drowsy. Do not attain any head-down positions for one week. Do not lift or strain for one week. Sleep with head elevated on 2 pillows for one week. DIET: You may resume your normal diet, but a soft diet is best tolerated. DRESSING: Wear a nasal drip pad for the first 2 to 3 days following the surgery. Change the nasal drip pad asneeded. Once the drainage slows down wear the pad if needed. MEDICATIONS: Use your medications as prescribed. Use the Nasal Relief Salol (decongestant) 2 sprays each nostril every hours. Use the Nasal Saline Salol 2 sprays each nostril every 2 hours. Use the Hypertonic Saline Irrigation at least 4 times a day. Follow the instructions given in the office for mixing and using the irrigation. POST-OPERATIVE APPOINTMENT: Keep your post-operative appointment. If you do not have one, call the office to make an appointment to be seen in 7-10 days. Call the office with any questions or problems The above information has been explained, I have had the opportunity to have my questions answered,and I have received a copy. Responsible Libertarian SignatureSurgeon s Signature Nurse s Signature Reviewed: 08/2905/30/2023 12:28:01 Post Op Patient Instructions - FT (Custom) (CUSTOM) Follow Up Care 05/13/2023 16:27:02 With:Millie Harrison Address: [address] [place] [address], [address] [place] [address]- Business (1) When:06/07/2023 [facility]11-09-2023 Evaluation + Plan noteExtracted from: Title:ANES Post General Author:Conrado Manzano DO Date:05/30/23 Plan Transfer/Discharge: Patient exhibiting no signs of N/V. Hydration status is adequate. Extracted from: Title:Jose Juan Basic PRE Author:Joaquín Manzano DO Date:05/30/23 Plan [place] [employer]esthesi[employer] (ASA) physical status classification: Class III. Anesthetic Preoperative Plan: Anesthesia General. [facility]11-09-2023 Evaluation note* Encounter Date Diagnosis Assessment Notes Treatment Notes Treatment Clinical Notes May, Type 2 diabetes mellitus with hyperglycemia (ICD-10 - E11.65) [facility] Other 10-26-2023 Note [id number] [facility] 03-21-2023 Evaluation note* Encounter Date Diagnosis Assessment Notes Treatment Notes Treatment Clinical Notes Feb, Type 2 diabetes mellitus with hyperglycemia (ICD-10 - E11.65) [facility] Other 07-06-2023 Evaluation note* Encounter Date Diagnosis Assessment Notes Treatment Notes Treatment Clinical Notes Jan, Wellness examination (ICD-10 - Z00.00) Healthy diet and exercise. Reviewed age-appropriate preventive testing recommended. Jan, Type 2 diabetes prem itus with hyperglycemia (ICD-10 - E11.65) This patient is following a comprehensive diabetic treatment plan. They are checking their feet daily for calluses and nonhealing ulcers. They are being seen for yearly dilated eye examinations. Goals: SBP less than 130, LDL less than 100, FBS less than 140, AC and A1C less than 7%. They are checking their BS daily, will which are reviewed at the office visit. Continue regular routine monitoring of A1C,] Microalbumin, Dilated eye exam and Foot exam Jan, [facility]CI (current) use of insulin (ICD-10 - Z79.4) Jan, Gastroesophageal ref lux disease with esophagitis without hemorrhage (ICD-10 - K21.00) Diet instructions: Smaller portions, avoid eating and laying flat, avoid eating or drinking prior to bedtime. Weight loss. Jan, Pure hypercholestero lemia (ICD-10 - E78.00) Instructed on diet and exercise with continued statin therapy.Discussed the beneficial effects of lowering cholesterol in reducing the risk for cerebrovascular and cardiovascular disease. Jan, BEULAH (obstructive sle ep apnea) (ICD-10 - G47.33) This patient is aware of the benefits associated with BEULAH: With continued use, the patient reduces the risk for AK, CVA, HTN, cardiac dysrhythmias and sudden cardiac deaths.The patient is also aware of the association between BEULAH and morning headaches, daytime somnolence, fatigue and obesity, which also has been improved with continued use.The patient is compliant with treatment, wearing the equipment every night for greater than 4 hours.The patient is instructed to continue use of the CPAP for BEULAH treatment. Jan, Primary hypertension (ICD-10 - I10) This patient is instructed to consume a healthy, low-fat, low-salt diet. They are also encouraged to continue exercise to achieve/maintain a normal BMI. 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 Other 11-27-2022 Hospital Discharge instructions Patient Education 06/17/2022 11:58:52 Viral Respiratory Infection, Kjmn-Cf-Kiht Viral Respiratory Infection A viral respiratory infection is an illness that affects parts of the body that are used for breathing. These include the lungs, nose, and throat. It is caused by a germ called a virus. Some examples of this kind of infection are: A cold. The flu (influenza). A respiratory syncytial virus (RSV) infection. A person who gets this illness may have the following symptoms: A stuffy or runny nose. Yellow or green fluid in the nose. A cough. Sneezing. Tiredness (fatigue). Achy muscles. A sore throat. Sweating or chills. A fever. A headache. Follow these instructions at home: Managing pain and congestion Take csdg-ctt-xirnkcs and prescription medicines only as told by your doctor. If you have a sore throat, gargle with salt water. Do this 3 4 times per day or as needed. To make a salt-water mixture, dissolve 1 tsp of salt in 1 cup of warm water. Make sure that all the salt dissolves. Use nose drops made from salt water. This helps with stuffiness (congestion). It also helps soften the skin around your nose. Drink enough fluid to keep your pee (urine) pale yellow. General instructions Rest as much as possible. Do not drink alcohol. Do not use any products that have nicotine or tobacco, such as cigarettes and e- cigarettes. If you need help quitting, ask your doctor. Keep all follow-up visits as told by your doctor. This is important. How is this prevented? Get a flu shot every year. Ask your doctor when you should get your flu shot. Do not let other people get your germs. If you are sick: ?Stay home from work or school. ?Wash your hands with soap and water often. Wash your hands after you cough or sneeze. If soap and water are not available, use hand room maid. Avoid contact with people who are sick during cold and flu season. This is in fall and winter. Get help if: Your symptoms last for 10 days or longer. Your symptoms get worse over time. You have a fever. You have very bad pain in your face or forehead. Parts of your jaw or neck become very swollen. Get help right away if: You feel pain or pressure in your chest. You have shortness of breath. You faint or feel like you will faint. You keep throwing up (vomiting). You feel confused. Summary A viral respiratory infection is an illness that affects parts of the body that are used for breathing. Examples of this illness include a cold, the flu, and respiratory syncytial virus (RSV) infection. The infection can cause a runny nose, cough, sneezing, sore throat, and fever. Follow what your doctor tells you about taking medicines, drinking lots of fluid, washing your hands, resting at home, and avoiding people who are sick. This information is not intended to replace advice given to you by your health care provider. Make sure you discuss any questions you have with your health care provider. Document Released: 06/20/2009 Document Revised: 07/16/2019 Document Reviewed: 08/18/2018 [employer] Patient Education 2020 [employer] 06/17/2022 11:58:50 BMI for Adults BMI for Adults Body mass index (BMI) is a number that is calculated from a person's weight and height. BMI may help to estimate how much of a person's weight is composed of fat. BMI can help identify those who may be at higher risk for certain medical problems. How is BMI used with adults? BMI is used as a screening tool to identify possible weight problems. It is used to check whether aperson is obese, overweight, healthy weight, or underweight. How is BMI calculated? BMI measures your weight and compares it to your height. This can be done either in [place] ([place] or metric measurements. Note that charts are available to help you find your BMI quickly and easily without having to do these calculations yourself. To calculate your BMI in [place] ([place] measurements, your health care provider will: 1.Measure your weight in pounds (lb). 2.Multiply the number of pounds by 703. For example, for a person who weighs 180 lb, multiply that number by 703, which equals 126,540. 3.Measure your height in inches (in). Then multiply that number by itself to get a measurement called inches squared. For example, for a person who is 70 in tall, the inches squared measurement is 70 in x 70 in, which equals 4900 inches squared. 4.Divide the total from Step 2 (number of lb x 703) by the total from Step 3 (inches squared): 126,540 4900 = 25.8. This is your BMI. To calculate your BMI in metric measurements, your health care provider will: 1.Measure your weight in kilograms (kg). 2.Measure your height in meters (m). Then multiply that number by itself to get a measurement called meters squared. For example, for a person who is 1.75 m tall, the meters squared measurement is 1.75 m x 1.75 m, which is equal to 3.1 meters squared. 3.Divide the number of kilograms (your weight) by the meters squared number. In this example: 70 3.1 = 22.6. This is your BMI. How is BMI interpreted? To interpret your results, your health care provider will use BMI charts to identify whether you are underweight, normal weight, overweight, or obese. The following guidelines will be used: Underweight: BMI less than 18.5. Normal weight: BMI between 18.5 and 24.9. Overweight: BMI between 25 and 29.9. Obese: BMI of 30 and above. Please note: Weight includes both fat and muscle, so someone with a muscular build, such as an athlete, may havea BMI that is higher than 24.9. In cases like these, BMI is not an accurate measure of body fat. To determine if excess body fat is the cause of a BMI of 25 or higher, further assessments may needto be done by a health care provider. BMI is usually interpreted in the same way for men and women. Why is BMI a useful tool? BMI is useful in two ways: Identifying a weight problem that may be related to a medical condition, or that may increase the risk for medical problems. Promoting lifestyle and diet changes in order to reach a healthy weight. Summary Body mass index (BMI) is a number that is calculated from a person's weight and height. BMI may help to estimate how much of a person's weight is composed of fat. BMI can help identify those who may be at higher risk for certain medical problems. BMI can be measured using Welsh measurements or metric measurements. To interpret your results, your health care provider will use BMI charts to identify whether you are underweight, normal weight, overweight, or obese. This information is not intended to replace advice given to you by your health care provider. Make sure you discuss any questions you have with your health care provider. Document Released: 03/19/2005 Document Revised: 06/20/2018 Document Reviewed: 05/21/2018 [employer] Patient Education [employer]. Follow Up Care 06/17/2022 10:07:05 With:NAYAN GEE DO Address: [address] [place], [place] [address]- When: Unknown [facility] Evaluation + Plan note No data available for this section [facility] Evaluation + Plan note Future Appointments Appointment Date:05/30/2023 12:15:00 PM Scheduled Provider: Location:[facility] [employer] Other Evaluation note* Diagnosis Inverted papilloma- Primary Nasal obstruction Other diseases of nasal cavity and sinuses documented in this encounter [facility] Work Phone: Evaluation note* Diagnosis Inverted papilloma- Primary Acute postoperative pain Other acute postoperative pain BEULAH (obstructive sleep apnea) Obstructive sleep apnea (adult) (pediatric) Primary hypertension Unspecified essential hypertension Other hyperlipidemia Type 2 diabetes mellitus without complication, with long-term current use of insulin ([facility]/HCC) documented in this encounter [facility] Work Phone: Evaluation note* Diagnosis Inverted papilloma- Primary Nasal obstruction Other diseases of nasal cavity and sinuses documented in this encounter [facility] Work Phone: [phone] note* Diagnosis Inverted papilloma- Primary Nasal obstruction Other diseases of nasal cavity and sinuses documented in this encounter [facility] Work Phone: Evaluation note* Diagnosis Inverted papilloma- Primary documented in this encounter [facility] Work Phone: Evaluation note* Diagnosis Inverted papilloma documented in this encounter [facility] Work Phone: Evaluation note* Diagnosis Inverted papilloma- Primary Nasal obstruction Other diseases of nasal cavity and sinuses documented in this encounter [facility] Work Phone: Evaluation note* Diagnosis Onset Date Resolution Status Admit Date Obesity acute October 06 8:57am BEULAH (obstructive sleep apnea) acute October 06, 2024 8:57am Primary hypertension acute Branden 2024 8:57am Pure hypercholesterolemia acute October 06, 2024 8:57am Recurrent major depressive d isorder, in full remission acute October 06 8:57am Type 2 diabetes mellitus wit h hyperglycemia acute October 06, 2024 8:57am [facility] Work Phone: Hisktfq general Narrative - Reported* Type Description Date Medical History Diabete Medical History Sleep Apnea Medical History Depression Surgical History Appendectomy 1977 Surgical History Cyst removal from tail bone 198 8 Surgical History hernia repain 2000 Hospitalization History see above [facility] Other History general Narrative - Reported* Type Description Date Medical History Diabete Medical History Sleep Apnea Medical History Depression Medical History inverted nasal papilloma Medical History T2DM Medical History HTN Medical History HLD Surgical History Appendectomy 1977 Surgical History Cyst removal from tail bone 198 8 Surgical History hernia repain 2000 Hospitalization History see above [facility] Other Hospital Discharge instructions No data available for this section [facility] No data available for this section [facility] Reason for referral (narrative)* Reason Referral for right n susy obstruction Diagnosis 1 Nasal turbinate hype rtrophy (J34.3) Referral Organization [facility] Gerard hercules Referring Provider First Name Nayan Referring Provider Last Name Gerard Referring Provider Specialty Internal Me dicine Referred Organization [facility] Referred Provider Millie Harrison Referred Address [address] [place] [phone] Referred Provider Specialty Ear, Nose an d Throat Referral Priority Routine General Notes Patient presents w/ nasal turbinate hypertrophy with associated nasal obstruction and facial pressure. Flonase was prescribed but failed to improve his symptoms. He was instructed to avoid Afrin. [facility] Other Summary Purpose Family History Relationship Condition Age at Onset Recorded Date/T marta Not Specified No pertinent family history Unknown father Diabetes mellitus Unknown Hypertension Unknown Advance Directives Advance Directive Response Recorded Date/ Time Advance Directives No August 1:01pm Hospital Course Note Send Summary: Discharge [facility] Providers: Provider RoleProvider Name Tj Salinas Jamie Note Recipients: Nayan Gee DO - [id number] [] Discharge: Summary: Admission Date: .08-Mar-2020 15:17:00 Discharge Date: 09-Mar-2020 Attending Physician at Discharge: Tj Steiner Admission Reason: Chest pain(1) Final Discharge Diagnoses: Benign essential hypertension, Chest pain, Diabetes mellitus, Obesity, Procedures: none Condition at Discharge: Satisfactory Disposition at Discharge: .Home Vital Signs: T PRBPSpO2 [id number]/7395% Date/Time03/09 8: 8: 8: 8: 8:00 Range(36.5C - 37.4C ) (59 - 94 ) (16 - 20 ) (133 - 152 )/ (72 - 91 ) (95% - 99% ) Highest temp of 37.4 C was recorded at 03/08 20:05 Hospital Course: 49 year old Male PMHx HTN, DM2, obesity presents to [facility] ED for chest pain. Chest pain started around noon when he got to work. He noticed a pressure across his chest and his left arm was tingling. Pain worsened and he started to hav (more content not included)... Reason for Referral Specialty Diagnoses / Procedures Referred By Leonard medina Referred To Contact Radiology Diagnoses Inverted papilloma Procedures CT sinus [place] [address] [address] Department [place] [address] Referral ID Status Reason Start Date Expiration Date Visits Requested Visits Authorized [id number] Pending Review Perform Procedure 06/25/2023 06/24/2024 1 1 Chief Complaint and Reason for Visit Chief Complaint Admit Date 6 month f/u October 06, 2024 8:5 7am Reason for Visit Admit Date Obesity October 06, 2024 8:5 7am BEULAH (obstructive sleep apnea) September 8:57am Primary hypertension October 06, 2024 8: 57am Pure hypercholesterolemia October 06 8:57am Recurrent major depressive disorder, in full remission October 06, 2024 8:57am Type 2 diabetes mellitus with hyperglyce nancy October 06, 2024 8:57am Additional Source Comments (unrecognized sect ion and content) No Status Records FoundNo Status Records FoundNo Status Records FoundNo Status Records FoundNo Status Records FoundNo Status Records FoundNo Status Records FoundNo Status Records FoundNo Status Records FoundNo Status Records FoundNo Status Records FoundNo Status Records FoundNo Status Records FoundNo Status Records Found INFORMATION SOURCE (unrecogn ized section and content) DATE CREATED AUTHOR 03/15/2020 [facility] DATE CREATED AUTHOR AUTHOR'S ORGANIZ ATION 08/24/2021 [facility] DATE CREATED AUTHOR AUTHOR'S ORGANIZ ATION 03/31/2022 [facility] DATE CREATED AUTHOR AUTHOR'S ORGANIZ ATION 06/09/2023 [facility] DATE CREATED AUTHOR AUTHOR'S ORGANIZ ATION 02/14/2024 [facility] DATE CREATED AUTHOR AUTHOR'S ORGANIZ ATION 04/09/2024 [facility] DATE CREATED AUTHOR AUTHOR'S ORGANIZ ATION 09/20/2024 [facility] DATE CREATED AUTHOR AUTHOR'S ORGANIZ ATION 09/27/2024 [facility] Patient Care team informatio n (unrecognized section and content) Laundry Attendant Relationship Specialty Start Date End Date Nayan Gee PCP - General 07/22/19 Laundry Attendant Relationship Specialty Start Date End Date Nayan Gee DO [address] [place] [address] PCP - General 07/22/19 Laundry Attendant Relationship Specialty Start Date End Date Nayan Gee [address] [place] [address] PCP - General 07/22/19 Laundry Attendant Relationship Specialty Start Date End Date Nayan Gee FarrukhDO [address] [place] [address] PCP - General 07/22/19 Laundry Attendant Relationship Specialty Start Date End Date Gerard Nayan ChadwickDO [address] [place] [address] PCP - General 07/22/19 Laundry Attendant Relationship Specialty Start Date End Date Nayan Gee FarrukhDO [address] [place] [address] PCP - General 07/22/19 Laundry Attendant Relationship Specialty Start Date End Date Nayan Gee DO [address] [place] [address] PCP - General 07/22/19 Team Status: Active Member Role Status Dates Nayan Gee DO Primary Care Provider Active Team Status: Inactive Member Role Status Dates Nayan Gee DO Primary Care Provide r, Attending Provider Active Start: October 06, 2024 End: October 06, 2024 REASON FOR VISIT (unrecogniz ed section and content) Reason Comments New Patient Visit Specialty Diagnoses / Procedures Referred By Leonard medina Referred To Contact Diagnoses Inverted papilloma Inverted papilloma [D36.9] Procedures KS STRTCTC CPTR ASSTD PX EXTRADURAL CRANIAL [place] UNLISTED PROCEDURE ACCESSORY SINUSES [place] UNLISTED PROCEDURE ACCESSORY SINUSES Endoscopic resection of inverted papilloma [place] [address] [facility] Department [place] [address] [facility] [address] [place] [address] Referral ID Status Reason Start Date Expiration Date Visits Re quested Visits Authorized [id number] 1 1 Reason Comments Post-op Reason Comments Post-op Visit Second visit Reason Comments Follow-up Specialty Diagnoses / Procedures Referred By Leonard medina Referred To Contact Radiology Diagnoses Inverted papilloma Procedures CT sinuss wo IV [place] [address] [facility] [place] [id number] Referral ID Status Reason Start Date Expiration Date Visits Requested Visits Authorized [id number] Authorized Perform Procedure 11/05/2023 11/04/2024 1 1 Reason Comments Follow-up Continuous Active and Recently Administ ered Medications (unrecognized section and content) Medication Order 07/24/2023 07/25/2023 07/26/2023 lactated Ringer's infusion 100 mL/hr, intravenous, Continuous, Starting on Sat07/26/23 at 1430, Recovery (only) 1430 (Due) PRN Medication Order 07/24/2023 07/25/2023 07/26/2023 acetaminophen (Tylenol) tablet 650 mg 650 mg, oral, Every 4 hours PRN, pain mild (1-3), first line, Starting on Sat07/26/23 at 1420, Recovery (only), When able to take oral medications., If ordered PRN for pain, nurse is permitted to administer this medication for higher pain scores based on patient preference? Yes albuterol 2.5 mg /3 mL (0.083 %) nebulizer solution 2.5 mg 2.5 mg, nebulization, Once as needed, wheezing, Starting on Sat07/26/23 at 1420, For 1 dose, Recovery (only) hydrALAZINE (Apresoline) injection 5 mg 5 mg, intravenous, Administer over 2 Minutes, Every 30 min PRN, high blood pressure, systolic blood pressure greater than 180 mmHg and heart rate less than 60 BPM, Starting on Sat07/26/23 at 1420, For 2 doses, Recovery (only) HYDROmorphone (Dilaudid) injection 0.2 mg 0.2 mg, intravenous, Every 5 min PRN, pain moderate (4-6), first line, Starting on Sat07/26/23 at 1420, Recovery (only), Max total of 4 mg regardless of dose. HYDROmorphone (Dilaudid) injection 0.5 mg 0.5 mg, intravenous, Every 5 min PRN, pain severe (7-10), first line, Starting on Sat07/26/23 at 1420, Recovery (only), Max total of 4 mg regardless of dose. labetaloL (Normodyne,Trandate) injection 5 mg 5 mg, intravenous, Administer over 1 Minutes, Once as needed, systolic blood pressure greater than 180 mmHg, dystolic blood pressure greater than 100 mmHg and heart rate greater than 60 BPM, Starting on Sat07/26/23 at 1420, For 1 dose, Recovery (only) lidocaine-epinephrine (Xylocaine W/EPI) 1 %-1:100,000 injection (CANCELED) As needed, Starting on Sat07/26/23 at 1255, Intraprocedure 1255 (Given - Provid er: Dot Connell MD) ondansetron (Zofran) injection 4 mg 4 mg, intravenous, Once as needed, nausea/vomiting, first line, Starting on Sat07/26/23 at 1420, For 1 dose, Recovery (only), When administering via IV Push, administer over 3-5 minutes. oxyCODONE (Roxicodone) immediate release tablet 10 mg 10 mg, oral, Every 4 hours PRN, pain severe (7-10), second line, Starting on Sat07/26/23 at 1420, Recovery (only), When able to take oral medications., If ordered PRN for pain, nurse is permitted to administer this medication for higher pain scores based on patient preference? Yes oxyCODONE (Roxicodone) immediate release tablet 5 mg 5 mg, oral, Every 4 hours PRN, pain moderate (4-6), second line, Starting on Sat07/26/23 at 1420, Recovery (only), When able to take oral medications., If ordered PRN for pain, nurse is permitted to administer this medication for higher pain scores based on patient preference? Yes 1455 (Given - Provid er: Rebecca Burt RN) oxygen (O2) therapy inhalation, Continuous PRN - O2/gases, other, Starting on Sat07/26/23 at 1420, Recovery (only), Device: Nasal Cannula, Rate in liters per minute: Other, Custom Value: 1-6 LPM, Keep O2 Sat Above: 92% oxymetazoline (Afrin) 0.05 % nasal spray (CANCELED) As needed, Starting on Sat07/26/23 at 1300, Intraprocedure 1300 (Given - Provid er: Dot Connell MD) promethazine (Phenergan) 6.25 mg in sodium chloride 0.9% 50 mL IV 6.25 mg, intravenous, Administer over 15 Minutes, Once as needed, Nausea/vomiting, second line, Starting on Sat07/26/23 at 1420, For 1 dose, Recovery (only) sodium chloride 0.9 % irrigation solution (CANCELED) As needed, Starting on Sat07/26/23 at 1301, Intraprocedure 1300 (Given - Provid er: Dot Connell MD)1301 (Given - Provider: Dot Connell MD - Comment: VIA MI[employer]DEBRIDER) Goals (unrecognized section and content) Goals may be documented in a n alternate section FOR RECORDS PERTAINING TO PATIENTS WHO ARE OR HAVE BEEN ENROLLED IN A CHEMICAL DEPENDENCY/SUBSTANCEABUSE PROGRAM, SOME INFORMATION MAY BE OMITTED. This clinical summary was aggregated from multiple sources. Caution should be exercised in using it in the provision of clinical care. This summary normalizes information from multiple sources, and as a consequence, information in this document may materially change the coding, format and clinical context of patient data. In addition, data may be omitted in some cases. CLINICAL DECISIONS SHOULD BE BASED ON THE PRIMARY CLINICAL RECORDS. [facility], [facility]. provides no warranty or guarantee of the accuracy or completeness of information in this document.
[2024-10-06 10:46] LABS: Estimated Average Glucose 154 mg/dL
== END 2024-10-06 09:30 | disposition home or self-care (01) ==
LOC: LAB 09:31
PROVIDERS: PCP Internal Medicine; Visit Provider Internal Medicine
DX: E11.65 Type 2 diabetes mellitus with hyperglycemia (principal); Z79.4 Long term (current) use of insulin
CPT/HCPCS: 36415; 83036